=== PATIENT | male | born 1955 | race Caucasian/White ===

== ENCOUNTER 2019-12-01 08:57 | Day surgery (SDC) | payer OTHER, SELFPAY ==
[2019-12-01] VITALS (9 sets, daily range): BP systolic 94–118; BP diastolic 60–76; PULSE 52–69; RESP 16–18; TEMP 36.4–37.1; O2SAT 95–100; BMI 20.7
[2019-12-01 09:33] LABS: Hematocrit 43.9 % (40-54); Hemoglobin 14.4 g/dL (13.0-16.5); Mean Corp Hgb Conc 32.8 g/dL (32-36); Mean Corpuscular Hgb 30.1 pg (27.0-32.0); Mean Corpuscular Volume 91.8 fL (80-94); Mean Platelet Vol. 8.5 fl (6.2-12.0); Platelet Count 403 K/mm3 (150-450); RBC Distribution Width CV 13.3 % (11.6-14.6); RBC Distribution Width SD 44.5 fl (35.1-43.9); Red Blood Count 4.78 M/mm3 (4.6-6.2)
--- NOTE | 2019-12-01 09:42 | EKG12_ITS ---
Test Reason : PRE OP Blood Pressure : / mmHG Vent. Rate : 067 BPM Atrial Rate : 067 BPM P-R Int : 172 ms QRS Dur : 094 ms QT Int : 398 ms P-R-T Axes : 034 020 029 degrees QTc Int : 420 ms Normal sinus rhythm Normal ECG No previous ECGs available Confirmed by ELISABETH ARCOS, JERROD ([id number]), editorial specialist MADDY STANTON ([id number]) on 12/04/2019 3:41:48 PM Referred By: Homer Fry Confirmed By:JERROD BARBER MD
[2019-12-01] MEDS: Lactated Ringers 1,000 ML 100 ML IV (09:44)
[2019-12-01] MEDS: Cefazolin 2 GM in 0.9% Normal Saline 100 ML IV (09:53)
--- NOTE | 2019-12-01 10:00 | PCM.HP.STD ---
Problem List (1) BPH with obstruction/lower urinary tract symptoms Status: Acute History of Present Illness Date of Admission: 12/01/19 Chief Complaint: BPH with obstruction The patient is a 64 year old male who has a history of enlarged prostate with BPH obstruction has been managed with medical therapy with Flomax and Proscar for a long time he however is progressed and is continued have significant urinary symptoms in the office he was found to have bilateral hypertrophy obstruction the median lobe talked about the options of minimally invasive procedures in the office versus TURP side effects of the TURP including erectile dysfunction retrograde ejaculation bleeding infection bladder neck contracture scar tissue formation urethral scar tissue formation and also failure to alleviate urinary symptoms. After reviewing all the minuses and pluses and risk and benefits of surgery he wants to proceed with a TURP Past Medical History Allergies adhesive tape Adverse Reaction (Verified 12/01/19 09:22) Rash Home Medications: Ambulatory Orders Medication Instructions Recorded Finasteride [Proscar] 5 mg PO QHS 11/28/19 Tamsulosin HCl [Flomax] 0.4 mg PO QHS 11/28/19 Surgical History: no surgical history Smoking Status: Current every day smoker Tobacco Use: Cigars Review of Systems Constitutional: Denies: Chills, Fever, Weight Change HEENT: Denies: Head Aches, Sinus Congestion, Sinus Drainage Cardiovascular: Denies: Chest Pain, Palpitations Respiratory: Denies: Cough, Shortness of breath at rest, Sputum production Gastrointestinal: Denies: Abdominal Pain, Nausea, Vomiting Genitourinary: Denies: Dysuria Musculoskeletal: Denies: Joint Pain, Joint Tenderness Skin: Denies: Rash, Wounds Neurological: Denies: Numbness, Tingling, Focal weakness Psychiatric: Denies: Anxiety, Depression, Homicidal Ideations, Suicidal Ideations Hematologic/ Lymphatic: Denies: Easy Bruising, Easy Bleeding VTE Information - Inpt Only VTE Present on Admission: No VTE Mechan Device Prophylaxis: SCD's Patient Problems: Active and Suspected Problems BPH with obstruction/lower urinary tract symptoms (Acute) - Physical Exam Vitals/I&O's: Vital Signs Temp Pulse Resp BP Pulse Ox 98.8 F 55 L 16 111/72 100 12/01/19 09:24 12/01/19 09:24 12/01/19 09:24 12/01/19 09:24 12/01/19 09:24 Oxygen Delivery Method Room Air Weight: 71.4 kg Body Mass Index (BMI) 20.7 General: Alert, Oriented x3, Cooperative HEENT: Atraumatic, PERRLA, EOMI, Normocephalic Neck: Supple, No JVD, Negative Carotid Bruits Lungs: Clear to auscultation, Normal air movement Cardiovascular: Regular rate, No murmurs Abdomen: Bowel Sounds Present, Soft, Non Tender Extremities: No edema, Capillary Refill Less than 3 Seconds Skin: No rashes, No breakdown Musculoskeletal: No Tenderness to Palpation of Joints or Extremities Neurological: Cranial nerves II-XII grossly intact Psych/Mental Status: Normal Affect, Appropriate Laboratory Results 12/01/19 09:25: WBC 7.0, RBC 4.78, Hgb 14.4, Hct 43.9, MCV 91.8, MCH 30.1, MCHC 32.8, RDW Std Deviation 44.5 H, RDW Coeff of Cherry 13.3, Plt Count 403, MPV 8.5 Current Medications Lactated Ringer's () 1,000 mls @ 100 mls/hr IV .Q10H [facility] Last Admin: 12/01/19 09:44 Dose: 100 mls/hr Documented by: Assessment/Plan All Active Problems BPH with obstruction/lower urinary tract symptoms (Acute) Plan to proceed with a TURP for relief of obstructive urinary symptoms.
--- NOTE | 2019-12-01 10:04 | DCINST_ITS ---
Discharge Diet: No Restrictions Discharge Activity: Return to Normal Activity, May Not Drive - for 2 days. Additional Activity Instructions:: Please be aware that pain medications may cause nausea. You should typically eat light foods as you take your pain medication. Pain medication may cause constipation, if this is a problem for you, please discuss with your doctor. Allergies/Adverse Reactions: Allergies adhesive tape Adverse Reaction (Verified 12/01/19 09:22) Rash Medications to take at Discharge Finasteride [Proscar] 5 mg PO QHS 11/28/19 Tamsulosin HCl [Flomax] 0.4 mg PO QHS 11/28/19 Ciprofloxacin [Cipro] 500 mg PO BID #10 tab 12/01/19 The following prescriptions were given: Ciprofloxacin [Cipro] 500 mg PO BID #10 tab Transmission Status: Pending to [facility] Primary Care Physician: Jose Roberto Bueno, KELLEY-C [Primary Care Provider] - Test Results: Test results from this visit will be discussed in further detail at your follow- up appointment, if applicable. Please Follow Up With: Homer Fry MD When: please call to make an appointment.
[2019-12-01] MEDS: Lubricating Jelly 60 GM Tube 30 GM TOPICAL (10:31)
--- NOTE | 2019-12-01 10:55 | PROS_PTH ---
PATIENT: AMADA SMITH LOC: [facility] U#:[id number] AGE/SX: 64/M ROOM: RE12/01/[address]: Dr. Homer Fry MD : [id number] BED: DIS: 12/02/2019 SPEC #: [id number] RECD: 12/01/19 12:01 STATUS: ANABELA CAROLYN #: [id number] JIMY: 12/01/19 10:[address]: Homer Fry DEPT: SURGICAL PATHOLOGY RECD BY: Maite Alicea ENTERED: 12/04/19 08:55 SP TYPE: TURP OTHR DR: Jose Roberto Bueno, FARMER DIVERSIFIED CROPS-C Tissues: Prostate, NOS Procedures: Surgery Specimen Level IV HEADER OPERATION: Cystoscopy, TUR of prostate PRE-OP DIAGNOSIS: BPH with obstruction/lower urinary tract symptoms TISSUE SUBMITTED: Prostate tissue MICROSCOPIC DIAGNOSIS Prostate tissue, TUR: Benign prostatic hyperplasia, glandular and stromal type. Chronic inflammation. Fragments of stones (gross only). VICKY:da 12/05/19 MICROSCOPIC DESCRIPTION Slides are reviewed. GROSS DESCRIPTION Received is one container labeled with the patient's name and designated prostate tissue. The specimen consists of multiple irregular fragments of pink-valerio, rubbery, soft tissue that in aggregate weigh 17 gm and measure in aggregate 7 x 5 x 2 cm. Fragments of brownish stones are also noted measuring 0.1 and 0.3 cm in greatest dimension and in aggregate 1 x 1 x 0.2 cm. Nursing Officer tissue is submitted in 12 cassettes. The stones are for gross identification only. / VICKY:da 12/04/19 TC:5 CPT: 16631
--- NOTE | 2019-12-01 11:06 | PCM.OPRPT ---
Problem List (1) BPH with obstruction/lower urinary tract symptoms Status: Acute Report of Operation Date of Procedure: 12/01/19 Pre-Operative Diagnosis: BPH with obstruction Post-Operative Diagnosis: The same Surgery/Procedure Performed:: Transurethral resection of the prostate Description of Surgical Findings:: 64-year-old male who is been on medical therapy for BPH and obstruction at this point he is having significant urinary symptoms is failed to improve with medical therapy and we talked about the options of management including minimally invasive procedures versus TURP and other options after reviewing all the options the patient he wishes to proceed with a transurethral resection of the prostate to alleviate urinary symptoms we talked about the risk and benefits of the procedure. Patient was taken back to the operating room at the smooth induction of general anesthesia he was placed prone on the table penis and testicles are prepped and draped in usual sterile fashion, went into the bladder with a 24 Hungarian noncontinuous flow resectoscope he had a large median lobe and bilateral hypertrophy I then started with the resection of the median lobe identified the right and left ureteral orifice making sure not to injure the both the left and right ureter orifice. After resecting the median lobe the left and right ureter office were clear and patent were uninvolved and uninjured during the procedure and then worked my way back to the verumontanum I then resected all the right lobe of the prostate up to the up to the roof and then resected all the left side of the prostate all the way to the roof once entire prostate was resected wide open had a nice wide open channel I did a flow test had a good but good flow the sphincter was intact verumontanum was spared and both the left and right ureteral orifice were intact and clear and patent and uninjured during the procedure all the chips were Ellik out of the bladder hemostasis was obtained in a meticulous fashion and he was placed on continuous bladder irrigation the urine was nice and clear taken back to PACU in good condition. Type of Anesthesia:: General Drains: [address] - Admit VTE Documentation VTE Present on Admission: No VTE Mechan Device Prophylaxis: SCD's
[2019-12-01] MEDS: 0.9% Normal Saline 1,000 ML 75 ML IV ×2 (13:03→22:01)
[2019-12-01] MEDS: Docusate Sodium 100 MG Capsule PO (21:59)
--- NOTE | 2019-12-01 22:05 | NURSING ---
Charting not allowing vuong assessment. Vuong with CBI patent, urine light arlyn color. Started bag 4 of CBI.
[2019-12-02 00:42] VITALS: BP 108/69; PULSE 59; RESP 16; TEMP 37.1; O2SAT 98
[2019-12-02 02:55] VITALS: BP 106/66; PULSE 58; RESP 16; TEMP 36.6; O2SAT 97
[2019-12-02 08:28] VITALS: BP 115/72; PULSE 61; RESP 18; TEMP 36.6; O2SAT 96
[2019-12-02] MEDS: Docusate Sodium 100 MG Capsule PO (08:29)
[2019-12-02] MEDS: Pantoprazole Sodium 40 MG Tablet PO (08:29)
--- NOTE | 2019-12-02 09:36 | PCM.PROGNOTE ---
Patient Problems: Active and Suspected Problems BPH with obstruction/lower urinary tract symptoms (Acute) Subjective: Postoperative day #1 status post TURP urine is nice and clear he is off irrigation - Physical Exam Vitals/I&O's: Vital Signs Temp Pulse Resp BP Pulse Ox 97.8 F 61 18 115/72 96 12/02/19 08:28 12/02/19 08:28 12/02/19 08:28 12/02/19 08:28 12/02/19 08:28 Oxygen Flow Rate (L/min) 98 Oxygen Delivery Method Room Air Weight: 71.4 kg Body Mass Index (BMI) 20.7 Intake and Output for Last 24 Hours 11/30/19 12/01/19 12/02/19 23:59 23:59 23:59 Intake Total 1754.17 / 2154.17 1361.25 / 1361.25 Output Total 500 / 1300 2049 / 2049 Balance 1254.17 / 854.17 -688.75 / -688.75 General: Alert, Oriented x3, Cooperative HEENT: Atraumatic, PERRLA, EOMI, Normocephalic Neck: Supple, No JVD, Negative Carotid Bruits Lungs: Clear to auscultation, Normal air movement Cardiovascular: Regular rate, No murmurs Abdomen: Bowel Sounds Present, Soft, Non Tender Extremities: No edema, Capillary Refill Less than 3 Seconds Skin: No rashes, No breakdown Musculoskeletal: No Tenderness to Palpation of Joints or Extremities Neurological: Cranial nerves II-XII grossly intact Psych/Mental Status: Normal Affect, Appropriate Current Medications Acetaminophen (Tylenol) 325 mg PO Q4H PRN PRN PRN Reason: Pain Score 1-10/10 Al Hydroxide/Mg Hydroxide (Mylanta Ii) 30 ml PO Q4H PRN PRN PRN Reason: Heartburn Docusate Sodium (Colace) 100 mg PO BID [facility] Last Admin: 12/02/19 08:29 Dose: 100 mg Documented by: Sodium Chloride () 1,000 mls @ 75 mls/hr IV .[id number] [facility] Last Infusion: 12/02/19 06:50 Dose: 0 mls/hr Documented by: Sodium Chloride () 250 mls @ 15 mls/hr IV .[id number] PRN PRN Reason: Saline Flush Sodium Chloride () 250 mls @ 15 mls/hr IV .[id number] PRN PRN Reason: Additional IVPB Infusion Ibuprofen (Motrin) 600 mg PO Q6H PRN PRN PRN Reason: Pain Score 1-10/10 Ondansetron HCl (Zofran) 4 mg IV Q6H PRN PRN PRN Reason: Nausea Oxycodone HCl (Oxyir) 5 mg PO Q4H PRN PRN PRN Reason: Pain Score 1-10/10 Pantoprazole Sodium (Protonix) 40 mg PO DAILY [facility] Last Admin: 12/02/19 08:29 Dose: 40 mg Documented by: Sodium Chloride () 10 - 40 ml IV UD PRN PRN Reason: SALINE FLUSH Medical Necessity - Tobacco Use Smoking Status: Current every day smoker Tobacco Use: Cigars Assessment/Plan All Active Problems BPH with obstruction/lower urinary tract symptoms (Acute) Postoperative day #1 status post TURP urine to clear DC Clark patient can go home after he voids.
== END 2019-12-02 11:56 | disposition home or self-care (01) ==
LOC: SDC 09:00 → AC 09:01 → MS3 12-04 09:00
PROVIDERS: Anesthesiology; PCP Nurse Practitioner Family; Referring Provider Urology; Visit Provider Urology
PROC: (CPT 52601; principal; 2019-12-01 10:45)
DX: N40.1 Benign prostatic hyperplasia with lower urinary tract symptoms (principal); N13.8 Other obstructive and reflux uropathy; R35.0 Frequency of micturition; R39.15 Urgency of urination; R97.20 Elevated prostate specific antigen [PSA]; Z85.828 Personal history of other malignant neoplasm of skin; Z79.899 Other long term (current) drug therapy; F17.290 Nicotine dependence, other tobacco product, uncomplicated
CPT/HCPCS: 52601; 36415; 85027; 88305; 93005; 99251; J7030; J7120; G0463; J2405

== ENCOUNTER 2020-01-01 15:00 | Emergency (ER) | payer OTHER, SELFPAY ==
[2019-12-01 12:46] VITALS: BMI 20.7
[2020-01-01 15:01] VITALS: BP 134/81; PULSE 82; RESP 18; TEMP 36.6; O2SAT 96; BMI 19.7
--- NOTE | 2020-01-01 15:24 | ED.VISSUMM ---
- ER Visit Summary Date of Service: 01/01/20 Chief Complaint: Abdominal pain, nausea, vomiting, diarrhea History of Present Illness: The patient is a 64 M who presents with the above symptoms. He was taking GoLYTELY for a colonoscopy prep for today. This was to be done at [facility]. He states that last night after taking some of the prep he developed nausea vomiting and diarrhea. He had diffuse abdominal cramping. Currently has a cramping is better and he does not feel as nauseous. He was concerned so they canceled the colonoscopy and he came in today. He took no medications for the vomiting. He denies any fevers. This was just a screening colonoscopy. Physical Examination: Vital signs reviewed. HEENT exam unremarkable. Heart is regular rate and rhythm without murmurs. Lungs are clear to auscultation. Abdomen is soft and nontender. Extremities reveal no edema. Skin exam normal. Neurologic exam normal. Test Results: Lm studies normal except for white blood cell count of 17.4 and glucose of 125 Emergency Department Course and Treatment: Patient has had no pain during his stay here. He was hydrated with IV fluids and feels better. I feel that all of the symptoms are likely due to his bowel prep for the colonoscopy. He is having no diarrhea currently. No pain or nausea. I will send him home with Bentyl and Zofran if his symptoms recur. He is going to follow-up with his doctor who ordered the colonoscopy Treatment Plan: [] Disposition: Discharge Impression: Nausea vomiting and diarrhea status post bowel preparation This note was generated with [employer] dictation software. It may contain incorrect words, spelling, and punctuation that were not noted in review of the chart prior to signing ED Disposition - Plan for ED Patient: Disposition: Home or Assisted Living Instructions: ED Diet for Vomiting or Diarrhea Adult Prescriptions: Dicyclomine HCl [Bentyl] 20 mg PO TIDAC #20 cap Transmission Status: Pending to [facility] Ondansetron [Zofran Odt] 8 mg PO Q8H PRN PRN #20 tab PRN Reason: Nausea Transmission Status: Pending to [facility] Referrals: Jose Roberto Bueno, DEHYDROGENATION CONVERTER HELPER-C [Primary Care Provider] -
[2020-01-01] MEDS: 0.9% Normal Saline 1,000 ML 1000 ML IV (15:39)
[2020-01-01 15:46] LABS: Absolute Lymphocyte Count 0.73 X10^3/uL (0.83-4.51); Absolute Neutrophil Count 15.8 X10^3/uL (2.0-7.7); Basophil# 0.03 X10^3/uL; Basophil% 0.2 % (0-1); Eosinophil# 0.01 X10^3/uL; Eosinophils% 0.1 % (0-5); Hematocrit 43.7 % (40-54); Hemoglobin 14.3 g/dL (13.0-16.5); Lymphocyte # 0.73 X10^3/ul (4.0); Lymphocyte % 4.2 % (19-41); Mean Corp Hgb Conc 32.7 g/dL (32-36); Mean Corpuscular Hgb 28.9 pg (27.0-32.0); Mean Corpuscular Volume 88.3 fL (80-94); Mean Platelet Vol. 8.3 fl (6.2-12.0); Monocyte# 0.74 X10^3/uL; Monocyte% 4.3 % (0-10); NRBC Flagged by Analyzer 0 % (0-5); Neutrophil # 15.78 X10^3/uL (2.7-7.7); Neutrophil % 90.7 % (47-70); Platelet Count 715 K/mm3 (150-450); RBC Distribution Width CV 12.3 % (11.6-14.6); RBC Distribution Width SD 39.7 fl (35.1-43.9); Red Blood Count 4.95 M/mm3 (4.6-6.2); White Blood Count 17.4 K/mm3 (4.4-11.0)
[2020-01-01 16:06] LABS: ALB/GLOB Ratio 0.7 RATIO (0.9-2.4); AST(SGOT) 33 U/L (15-37); Alanine Aminotransfer ALT/SGPT 18 U/L (16-61); Albumin, Serum 3.3 g/dL (3.2-5.0); Alkaline Phosphatase 113 U/L (45-117); Anion Gap 11 (5-15); BUN 22 mg/dL (7-18); BUN/Creat Ratio 27.2 RATIO (10-20); Calcium,Total 9.8 mg/dL (8.5-10.1); Chloride 101 mmol/L (98-107); Creatinine, Serum 0.81 mg/dL (0.70-1.30); EST Glomerular Filtration Rate 102 mL/min (>60); Est Glom Filt Rate - Afr Amer 124 mL/min (>60); Estimated Creatinine Clearance 89.38 ml/min; Glucose 125 mg/dL (74-106); Lipase 51 U/L (73-393); Potassium 4.1 mmol/L (3.5-5.1); Protein, Total 8.3 g/dL (6.4-8.2); Sodium Level 136 mmol/L (136-145)
[2020-01-01 16:29] VITALS: BP 128/71; PULSE 79; RESP 16; O2SAT 99
== END 2020-01-01 16:31 | disposition home or self-care (01) ==
PROVIDERS: Emergency Provider Emergency Medicine; PCP Nurse Practitioner Family
DX: R11.2 Nausea with vomiting, unspecified (principal); R19.7 Diarrhea, unspecified; R10.9 Unspecified abdominal pain; Z72.0 Tobacco use
CPT/HCPCS: 80053; 83690; 85025; 96360; 99284; J7030; A4216

== ENCOUNTER 2020-03-02 10:04 | Inpatient (IN) | payer OTHER, SELFPAY ==
[2020-03-02] VITALS (12 sets, daily range): BP systolic 104–147; BP diastolic 65–97; PULSE 60–77; RESP 16–17; TEMP 36.3–37.6; O2SAT 96–98; BMI 18.7; BMI 18.8; BMI 19.1
--- NOTE | 2020-03-02 10:27 | CT_ITS ---
STUDY: CT ABDOMEN AND PELVIS WITH CONTRAST REASON FOR EXAM: Male, 64 years old. PT STATED DIFFUSE ABDOM PAIN, STATES COMPLICATIONS/PAIN SINCE ATTEMPTED COLONOSCOPY PREP IN DECEMBER. RADIATION DOSAGE (If Supplied By Facility): CTDIvol = ( 10.94 ) mGy, DLP = ( 510.62 ) mGycm TECHNIQUE: Transaxial images were obtained from the dome of the diaphragm to the symphysis pubis without oral contrast. Oral and amp; IV Gastrografin and amp; 100mL Isovue-300 was administered. Sagittal and coronal images were reconstructed. Individualized dose optimization techniques were used for this CT. COMPARISON: None. FINDINGS: The visualized lung bases demonstrate pulmonary masses bilaterally up to 7.3 x 6.2 cm. The visualized portions of the heart are within normal limits. 9 mm right hepatic cyst in the liver. Normal gallbladder and extrahepatic biliary system. Normal spleen. Normal pancreas. Normal bilateral adrenal glands. Punctate lower pole stone in the right kidney. Hydronephrosis of the left kidney with possible UPJ obstruction. Normal visualized stomach. Dilated small intestine with with retained contents. Wall thickening with possible mass in the proximal descending colon likely causing at least partial obstruction distended proximal colon. The appendix is visualized and appears normal. Normal abdominal aorta. Normal inferior vena cava. Normal retroperitoneum. Mild ascites. Normal urinary bladder. Trace pelvic free fluid. Normal abdominal wall. Normal osseous structures. CT/Abdomen/Pelvis WITH Contrast IMPRESSION: Multiple pulmonary masses bilaterally. Possible proximal descending colonic mass causing at least partial obstruction. Mild ascites and pelvic fluid. Electronically Signed: Terry Doshi DO at 13:19 EDT Tel [phone], Service support ,
--- NOTE | 2020-03-02 10:27 | ED.VIS.GEN ---
History of Present Illness Chief Complaint: Abd Pain Informant: Patient, Family Narrative: 64-year-old male presenting with bilateral lower quadrant pain. He states that in December he started having upper abdominal pain after getting a bowel prep for colonoscopy. He was seen and evaluated at [facility]. He was treated medically with fluids and medications. He felt better upon discharge. He did have a leukocytosis of 17,000. He followed up with his GI doctor who did an upper endoscopy and ultimately diagnosed him with H. pylori. He is currently on antibiotics and Prilosec for this. He states he is been having difficulty eating due to the ulcer in his stomach. Last night he ate ice cream which he states was moose tracks. He states that after that he started to have a lot of cramping and bloating in his stomach. This is persisted overnight. He points to his bilateral lower quadrants as where the pain is. He does state he has had black stools because he is on Pepto-Bismol. He denies bloody stools. He states that other than this current difficulty he has not had any medical problems. His fevers. He is not had any urinary complaints. Patient does state he is lost 20 pounds over the last month. Is able to eat vegetable based protein. He has difficulty eating most other things. Past Medical History - Allergies and Home Meds Allergies/Adverse Reactions: Allergies adhesive tape Adverse Reaction (Verified 03/02/20 10:05) Rash Prior records reviewed: Yes Past Medical History: - - Gastric ulcer, H. pylori Surgical History: - - Upper endoscopy Lives: Spouse/ Significant Other Smoking Status: Never smoker Alcohol: None Drugs: None - Family History Maternal Family History: Reports: No pertinent history, - - No family history of colon cancer. Paternal Family History: Reports: No pertinent history Review of Systems General: Denies: Chills, Fever, Sweats Eyes: Denies: Visual changes - bilaterally, Diplopia ENT: Denies: Rhinorrhea, Sore throat Cardiovascular: Denies: Chest pain, Palpitations Respiratory: Denies: Dyspnea, Cough, Dyspnea on exertion Gastrointestinal: Reports: Abdominal pain, Nausea, Melena Genitourinary: Denies: Dysuria, Hematuria Musculoskeletal: Denies: Myalgias, Arthralgias Skin: Denies: Rash Neurological: Denies: Headache Physical Exam Vital Signs/Narrative: Vital Signs Temp Pulse Resp BP Pulse Ox 03/02/20 10:06 97.4 F L 77 17 134/91 H 98 General: No Acute Distress Head: Normocephalic, Atraumatic Eyes: Perrl, EOMI. Negative for: Scleral icterus ENT: Moist mucous membranes Neck: Supple Cardiovascular: Regular rate, Regular rhythm Respiratory: No distress, CTA bilaterally Abdomen: - - Tenderness elicited in the right lower quadrant and midline lower abdomen. Back: Nontender Extremities: Nontender, No edema Skin: Normal color, No rash Neurological: Alert, Oriented x3 Psychological: Normal affect Diagnostic/Tx/Re-eval Clinical Impression(s) from Imaging Studies Abdomen/Pelvis CT 03/02/20 10:27 IMPRESSION: Multiple pulmonary masses bilaterally. Possible proximal descending colonic mass causing at least partial obstruction. Mild ascites and pelvic fluid. Electronically Signed: Terry Doshi DO at 13:19 EDT Tel [phone], Service support , KUB X-Ray 03/02/20 13:45 IMPRESSION: Recommend advancing NG tube 5 cm. Electronically Signed: Robi Loyola MD ([facility]) at 15:26 EDT , Service support , Laboratory Data 03/02/20 03/02/20 03/02/20 10:27 10:27 11:45 WBC 10.4 RBC 4.92 Hgb 13.4 Hct 42.2 MCV 85.8 MCH 27.2 MCHC 31.8 L RDW Std Deviation 44.1 H RDW Coeff of Cherry 14.3 Plt Count 562 H MPV 8.1 Immature Gran % (Auto) 0.300 Neut % (Auto) 84.2 H Lymph % (Auto) 8.7 L Mora % (Auto) 5.5 Eos % (Auto) 0.6 Baso % (Auto) 0.7 Absolute Neuts (auto) 8.7 H Absolute Lymphs (auto) 0.90 Nucleated RBC % 0 Sodium 137 Potassium 4.7 Chloride 105 Carbon Dioxide 29.0 Anion Gap 3 L BUN 13 Creatinine 0.77 Estim Creat Clear Calc 89.58 Est GFR (MDRD) Af Amer 132 Est GFR (MDRD) Non-Af 109 BUN/Creatinine Ratio 17.0 Glucose 114 H Calcium 9.5 Total Bilirubin 0.50 AST 32 ALT 36 Alkaline Phosphatase 138 H Total Protein 7.9 Albumin 3.7 Globulin 4.2 Albumin/Globulin Ratio 0.9 Lipase 106 Urine Color Yellow Urine Clarity Clear Urine pH 7.0 Ur Specific [place] 1.010 Urine Protein 15 H Urine Glucose (UA) Normal Urine Ketones Negative Urine Occult Blood 10 H Urine Nitrite Negative Urine Bilirubin Negative Urine Urobilinogen Normal Ur Leukocyte Esterase 25 H Urine RBC 0-5 SEEN Urine WBC 0 SEEN Ur Squamous Epith Cells 0 SEEN Amorphous Sediment 1+ Urine Bacteria 0 SEEN Urine Mucus 0 SEEN - Medical Decision Making He was seen and examined on arrival. He had some complaints of lower abdominal pain after eating ice cream last night. He also discussed this complaint of continued weight loss of 20 pounds over time frame when he was seen last. He does not have any epigastric pain associated with this stomach ulcer. His leukocytosis is improved. His renal function is normal. Electrolytes are normal. Patient did have a CT of the abdomen and pelvis with p.o. and IV contrast given his continued weight loss and pain. This does identify a large bowel obstruction of the descending colon likely caused by mass. There is also multiple masses throughout the abdomen and in the lungs. There appears to be some obstruction of the left ureter is unclear if this is new or old he has had previous renal surgery. He is not complaining of any flank pain. General surgery was consulted and came to the ER to evaluate the patient. They recommended taken straight to the OR due to the large bowel obstruction. I did also speak to the hospitalist who will arrange for further evaluation of the new masses. Impression: 1. Multiple masses in abdomen 2. Large bowel obstruction due to mass 3. Lung masses 4. Abdominal pain ED Disposition - Plan for ED Patient: Disposition: Acute Care Hospital [facility]
[2020-03-02 10:34] LABS: Absolute Neutrophil Count 8.7 X10^3/uL (2.0-7.7); Basophil# 0.07 X10^3/uL; Basophil% 0.7 % (0-1); Eosinophil# 0.06 X10^3/uL; Eosinophils% 0.6 % (0-5); Hematocrit 42.2 % (40-54); Hemoglobin 13.4 g/dL (13.0-16.5); Lymphocyte % 8.7 % (19-41); Mean Corp Hgb Conc 31.8 g/dL (32-36); Mean Corpuscular Hgb 27.2 pg (27.0-32.0); Mean Corpuscular Volume 85.8 fL (80-94); Mean Platelet Vol. 8.1 fl (6.2-12.0); Monocyte# 0.57 X10^3/uL; Monocyte% 5.5 % (0-10); NRBC Flagged by Analyzer 0 % (0-5); Neutrophil # 8.72 X10^3/uL (2.7-7.7); Neutrophil % 84.2 % (47-70); Platelet Count 562 K/mm3 (150-450); RBC Distribution Width CV 14.3 % (11.6-14.6); RBC Distribution Width SD 44.1 fl (35.1-43.9); Red Blood Count 4.92 M/mm3 (4.6-6.2); White Blood Count 10.4 K/mm3 (4.4-11.0)
[2020-03-02] MEDS: 0.9% Normal Saline 1,000 ML 1000 ML IV (10:38)
[2020-03-02] MEDS: Ondansetron 4 MG/2 ML Vial IV (10:38)
[2020-03-02] MEDS: Morphine 4 MG/ML Syringe IV (10:38)
[2020-03-02 10:51] LABS: ALB/GLOB Ratio 0.9 RATIO (0.9-2.4); AST(SGOT) 32 U/L (15-37); Alanine Aminotransfer ALT/SGPT 36 U/L (16-61); Albumin, Serum 3.7 g/dL (3.2-5.0); Alkaline Phosphatase 138 U/L (45-117); Anion Gap 3 (5-15); BUN 13 mg/dL (7-18); Calcium,Total 9.5 mg/dL (8.5-10.1); Chloride 105 mmol/L (98-107); Creatinine, Serum 0.77 mg/dL (0.70-1.30); EST Glomerular Filtration Rate 109 mL/min (>60); Est Glom Filt Rate - Afr Amer 132 mL/min (>60); Estimated Creatinine Clearance 89.58 ml/min; Globulin 4.2 g/dL (2.2-4.2); Glucose 114 mg/dL (74-106); Lipase 106 U/L (73-393); Potassium 4.7 mmol/L (3.5-5.1); Protein, Total 7.9 g/dL (6.4-8.2); Sodium Level 137 mmol/L (136-145)
[2020-03-02 11:57] LABS: Bacteria 0 SEEN /hpf (None Seen); Mucous, Urine 0 SEEN /hpf (<or=2+); Squamous Epithelial Cells - UA 0 SEEN /hpf (0-5); White Blood Cells 0 SEEN /hpf (0-5)
[2020-03-02 11:58] LABS: Color, Urine Yellow (Yellow); Glucose, Dipstick Normal (Normal); Ketone-Dipstick Negative (Negative); Leukocyte Esterase-Dipstick 25 /ul (Negative); Nitrite-Dipstick Negative (Negative); Occult Blood-Urine 10 /ul (Negative); Protein-Dipstick 15 mg/dl (Negative); Urine Bilirubin Dipstick Negative (Negative); Urine Clarity Clear (Clear); Urine Urobilinogen Normal (Normal)
[2020-03-02 12:09] LABS: Red Blood Cells-Urine 0-5 SEEN /hpf (0-5)
[2020-03-02 12:10] LABS: Amorphous Sediment 1+
--- NOTE | 2020-03-02 13:45 | RAD_ITS ---
STUDY: X-RAY - ABDOMEN/PELVIS REASON FOR EXAM: Male, 64 years old. NG tube placement TECHNIQUE: Single AP view of the abdomen / pelvis. COMPARISON: None. FINDINGS: Enteric tube is seen with tip extending into the gastric fundus with side port at the level of GE junction. Gaseous distention of colon with fecal residue noted. No dilated loops of small bowel seen. There is no demonstrated free abdominal air. The visualized liver, spleen and kidneys are grossly normal in size and morphology. Normal soft tissue structures. Normal visualized osseous structures. RAD/Abdomen Single View (Portable) IMPRESSION: Recommend advancing NG tube 5 cm. Electronically Signed: Robi Loyola MD ([place]) at 15:26 EDT , Service support ,
--- NOTE | 2020-03-02 14:22 | HP.PCM_ITS ---
Problem List (1) Partial obstruction of colon Status: Acute (2) Descending colon mass Status: Acute (3) Benign prostatic hyperplasia Status: Chronic (4) Status post left partial nephrectomy Status: Chronic History of Present Illness Date of Admission: 03/02/20 Chief Complaint: Abdominal pain. The patient is a 64 year old M with past medical history as mentioned above presented to the emergency room because of abdominal pain. Patient mentioned that the pain started around beginning of December when he was scheduled to go for colonoscopy. He was given the preparation for colonoscopy which she was not able to complete and started having nausea, vomiting with abdominal pain. Since then, patient has been having abdominal pain, intermittent, mid abdominal and around umbilicus, dull aching pain, not radiating, associated with intermittent nausea and vomiting and without alleviating or relieving factors. He mentioned that over the last several days, pain has been getting more intense, more constant, goes up to 10 out of 10 in severity, not radiating and associated with poor appetite and he lost about 25 pounds over the last couple of months. He denied constipation or diarrhea. He reports dark stool because he has been taking Pepto-Bismol. He denied hematochezia. Patient's mentioned that patient had upper endoscopy recently with Dr. Senior, found to have H. pylori apparently duodenal ulcer, was given treatment and he was informed that he needs to go to [facility] for a procedure. I am not sure what is this procedure as an no documents available in his chart from Dr. Senior's office. In the emergency department, his vital signs were stable. His routine blood work was unremarkable. LFT and lipase were normal. Urinalysis revealed no evidence of acute infection. CT scan abdomen and pelvis with contrast revealed multiple bilateral lung nodules, possible proximal descending colon mass causing at least partial colon obstruction and also revealed mild ascites and pelvic fluid. He is being admitted for partial colon obstruction due to possible descending colon mass and also found to have multiple bilateral lung nodules could be due to metastasis. Past Medical History Past Medical History (Chronic Problems): Chronic Problems Benign prostatic hyperplasia (Chronic) Status post left partial nephrectomy (Chronic) Allergies adhesive tape Adverse Reaction (Verified 03/02/20 10:05) Rash Home Medications: Ambulatory Orders Medication Instructions Recorded Omeprazole [Prilosec] 20 mg PO BID 03/02/20 Surgical History: TURP, - - Partial left nephrectomy. Psychiatric History: No pertinent psych hx Lives: Spouse/ Significant Other Smoking Status: Current every day smoker Tobacco Use: Cigars Alcohol: None Drugs: None - *Family History Maternal History Items: No pertinent history, - - No family history of colon cancer. Paternal History Items: No pertinent history Review of Systems Constitutional: Reports: Anorexia, Weight Change. Denies: Chills, Fever Eyes: Denies: Blurred vision, Double vision, Drainage, Redness HEENT: Denies: Difficulty Hearing, Ear Pain, Eye Pain, Nasal Congestion, Sore Throat Cardiovascular: Denies: Chest Pain, Claudication, Chest Pressure, Edema, H eaviness, Light Headedness, Palpitations, Syncope Respiratory: Denies: Cough, Pleuritic Pain, Shortness of Breath, Sputum production, Wheezing Gastrointestinal: Reports: Abdominal Pain, Nausea, Vomiting. Denies: Constipation, Diarrhea, Hematochezia Genitourinary: Denies: Dysuria, Frequency, Hematuria Musculoskeletal: Denies: Arm Pain, Back Pain, Foot Pain Skin: Denies: Dryness, Rash Neurological: Denies: Balance problems, Double vision, Slurred speech, Confusion, Headaches, Incoordination Psychiatric: Denies: Anxiety, Depression Endocrine: Denies: Change in Body Habitus, Polydipsia, Polyuria VTE Information - Inpt Only VTE Present on Admission: No VTE Mechan Device Prophylaxis: None VTE Pharm Prophylaxis ordered?: Yes Patient Problems: Active and Suspected Problems Partial obstruction of colon (Acute) Descending colon mass (Acute) - Physical Exam Vitals/I&O's: Vital Signs Temp Pulse Resp BP Pulse Ox 97.4 F L 60 16 147/97 H 98 03/02/20 10:06 03/02/20 11:30 03/02/20 11:30 03/02/20 11:30 03/02/20 10:06 Oxygen Delivery Method Room Air Weight: 142 lb 3.17 oz Body Mass Index (BMI) 18.7 Intake and Output for Last 24 Hours 02/29/20 03/01/20 03/02/20 23:59 23:59 23:59 Intake Total 1000 / 1000 Balance 1000 / 1000 General: Alert, Oriented x3, Cooperative, No apparent distress HEENT: Atraumatic, PERRLA, EOMI, Normocephalic Oral: Moist Mucosa, No Gingival or Mucosal Lesions/ Ulcerations Neck: Supple, No JVD, Negative Carotid Bruits, Trachea Midline, Thyroid Normal Size and Texture Lungs: Clear to auscultation, Normal air movement, No rhonchi, No wheeze, No rales Cardiovascular: Regular rate, Regular Rhythm, Normal S1, Normal S2, No murmurs, PMI Normal Abdomen: Bowel Sounds Present, Soft, Non-Distended, No Hepato-splenomegaly, Tender - Minimal tenderness, no guarding or rigidity. Extremities: No clubbing, No cyanosis, No edema Skin: No rashes, No breakdown Lymphatic: No Cervical, Supraclavicular, or Inguinal Adenopathy Neurological: Cranial nerves II-XII grossly intact, Motor Exam 5/5 strength throughout Psych/Mental Status: Normal Affect, Appropriate, Alert and oriented to time, place, person, mood and affect Laboratory Results 03/02/20 10:27: WBC 10.4, RBC 4.92, Hgb 13.4, Hct 42.2, MCV 85.8, MCH 27.2, MCHC 31.8 L, RDW Std Deviation 44.1 H, RDW Coeff of Cherry 14.3, Plt Count 562 H, MPV 8.1, Immature Gran % (Auto) 0.300, Neut % (Auto) 84.2 H, Lymph % (Auto) 8.7 L, [place] % (Auto) 5.5, Eos % (Auto) 0.6, Baso % (Auto) 0.7, Absolute Neuts (auto) 8.7 H, Absolute Lymphs (auto) 0.90, Nucleated RBC % 0 03/02/20 10:27: Sodium 137, Potassium 4.7, Chloride 105, Carbon Dioxide 29.0, Anion Gap 3 L, BUN 13, Creatinine 0.77, Estim Creat Clear Calc 89.58, Est GFR (MDRD) Af Amer 132, Est GFR (MDRD) Non-Af 109, BUN/Creatinine Ratio 17.0, Glucose 114 H, Calcium 9.5, Total Bilirubin 0.50, AST 32, ALT 36, Alkaline Phosphatase 138 H, Total Protein 7.9, Albumin 3.7, Globulin 4.2, Albumin/Globulin Ratio 0.9, Lipase 106 03/02/20 11:45: Urine Color Yellow, Urine Clarity Clear, Urine pH 7.0, Ur Specific [place] 1.010, Urine Protein 15 H, Urine Glucose (UA) Normal, Urine Ketones Negative, Urine Occult Blood 10 H, Urine Nitrite Negative, Urine Bilirubin Negative, Urine Urobilinogen Normal, Ur Leukocyte Esterase 25 H, Urine RBC 0-5 SEEN, Urine WBC 0 SEEN, Ur Squamous Epith Cells 0 SEEN, Amorphous Sediment 1+, Urine Bacteria 0 SEEN, Urine Mucus 0 SEEN Clinical Impression(s) from Imaging Studies Abdomen/Pelvis CT 03/02/20 10:27 IMPRESSION: Multiple pulmonary masses bilaterally. Possible proximal descending colonic mass causing at least partial obstruction. Mild ascites and pelvic fluid. Electronically Signed: Terry Doshi DO at 13:19 EDT Tel [phone], Service support , Assessment/Plan All Active Problems Partial obstruction of colon (Acute) Descending colon mass (Acute) This is a 64 years old male patient presented to the emergency room because of abdominal pain with nausea and vomiting that has been going on for couple of months, associated with poor appetite and loss of weight, found to have possible descending colon mass causing at least partial colon obstruction and also found to have multiple bilateral lung nodules and is being admitted for evaluation and treatment. #1 partial colon obstruction/possible descending colon mass: Differential diagnosis could be colon cancer with lung metastasis. CT scan abdomen and pelvis reviewed. NG tube inserted in the ED. Vital signs are stable. Blood work including CBC and CMP were unremarkable as well as lipase. Patient denied family history of colon cancer. Plan: Admit to MedSurg floor, keep on n.p.o., IV fluids, IV morphine PRN for pain, IV antiemetics, OxyIR PRN for pain, general surgery consult, maintain NG tube, repeat CBC and BMP tomorrow morning. #2 multiple bilateral lung nodules: Could be due to metastasis. Plan: CT scan chest without contrast. #3 recent diagnosis of peptic ulcer disease/H. pylori: Patient completed treatment according to him. Will obtain the upper EGD report from reports office. #3 status post partial left nephrectomy: Apparently, this was done for left UPJ obstruction. CT scan abdomen and pelvis revealed left hydronephrosis without evidence of obstructing stone. Kidney function is normal. #4 BPH: Status post TURP. Denied any urinary complaints. He is not on Flomax and Proscar. #5 DVT prophylaxis, subcu Lovenox. This note was generated with [employer] dictation software. It may contain incorrect words, spelling, and punctuation that were not noted in checking the note before signing. Inpatient E&M: [id number] Init Hosp L3
--- NOTE | 2020-03-02 15:08 | PCM.CONS.GEN ---
Problem List (1) Descending colon mass Status: Acute (2) Colonic obstruction Status: Acute (3) Bilateral pulmonary metastases Status: Acute Reason for Consult Date of Consultation: 03/02/20 History of Present Illness: The patient is a 64 year old M I have been asked to see by regarding what appears to be a large bowel obstruction. A written copy of my surgical consult recommendations will be present in the charting. 64-year-old gentleman. He states that he thinks around May 2019 he saw Lupillo Nguyễn. He was having what he calls prostate problems. He was then referred to who performed a TURP December 01, 2019 at the [facility]. The patient continued to have left lower quadrant abdominal pain. Apparently he returned to see Lupillo Nguyễn about September 2019. He was then referred to a skills auditor in [place]. He was scheduled early in December to have a colonoscopy but he failed the bowel prep with severe nausea and vomiting. It was so severe that he had to present to the [facility] emergency room. Apparently he was hydrated. I cannot find a physician note. He then was referred to Dr. Venkata Senior. Dr. Senior told him that he was not comfortable performing a colonoscopy. February 15, 2020 he did an upper scope apparently identifying H. pylori and a mass in the duodenum. He was being referred to someone at [place] to handle duodenal mass and the patient received H pylori oral therapy. It is of note however that the patient claims to have been telling all of his doctors that dating back at least 2 months he has been completely intolerant of food. He has had significant abdominal pain and cramping. He has had very little stool production. He has had significant weight loss of over 20 pounds. Presented to the emergency room today because of severe abdominal pain. An NG tube was placed and is noted below for feculent return. He has a history of being a long-term smoker. He was a long-term user of cigarettes at a pack per day and then he converted to cigars. He is only been off the tobacco for the past month because of this acute illness. Alcohol was occasional. He has had a previous partial left nephrectomy for what sounds like UPJ obstruction. A CT scan was obtained at the emergency room because of diffuse abdominal pain. This demonstrates pulmonary masses up to 7.3 x 6.2 cm in diameter. Hydronephrosis of the left kidney. Dilated small intestine with retained contents. Wall thickening with possible mass in the proximal descending colon likely causing at least partial obstruction. Mild ascites and pelvic fluid. Past Medical History Past Medical History (Chronic Problems): Chronic Problems Benign prostatic hyperplasia (Chronic) Status post left partial nephrectomy (Chronic) Allergies adhesive tape Adverse Reaction (Verified 03/02/20 10:05) Rash Home Medications: Ambulatory Orders Medication Instructions Recorded Omeprazole [Prilosec] 20 mg PO BID 03/02/20 Surgical History: TURP, - - Partial left nephrectomy. Psychiatric History: No pertinent psych hx Lives: Spouse/ Significant Other Smoking Status: Current every day smoker Tobacco Use: Cigars Alcohol: None Drugs: None - *Family History Maternal History Items: No pertinent history, - - No family history of colon cancer. Paternal History Items: No pertinent history Review of Systems Constitutional: Reports: Anorexia. Denies: Chills, Fever Cardiovascular: Denies: Chest Pain Respiratory: Denies: Shortness of Breath Gastrointestinal: Reports: Abdominal Pain, Constipation, Nausea, Vomiting Endocrine: Reports: Change in Body Habitus Patient Problems: Active and Suspected Problems Colonic obstruction (Acute) Bilateral pulmonary metastases (Acute) Partial obstruction of colon (Acute) Descending colon mass (Acute) - Physical Exam Vitals/I&O's: Vital Signs Temp Pulse Resp BP Pulse Ox 99.6 F H 69 16 136/89 H 98 03/02/20 14:30 03/02/20 14:30 03/02/20 14:30 03/02/20 14:30 03/02/20 10:06 Oxygen Delivery Method Room Air Weight: 142 lb 3.17 oz Body Mass Index (BMI) 18.7 Intake and Output for Last 24 Hours 02/29/20 03/01/20 03/02/20 23:59 23:59 23:59 Intake Total 1000 / 1000 Balance 1000 / 1000 General: Alert, Oriented x3, Cooperative, - - Patient appears cachectic HEENT: Atraumatic Oral: - - Dry mucosa Lungs: Clear to auscultation Cardiovascular: Regular rate, Regular Rhythm Abdomen: Hypoactive Bowel Sounds, Distended, Tender Extremities: No Calf Tenderness Musculoskeletal: No Tenderness to Palpation of Joints or Extremities Neurological: - - Cognition intact Psych/Mental Status: Normal Affect Laboratory Results 03/02/20 10:27: WBC 10.4, RBC 4.92, Hgb 13.4, Hct 42.2, MCV 85.8, MCH 27.2, MCHC 31.8 L, RDW Std Deviation 44.1 H, RDW Coeff of Cherry 14.3, Plt Count 562 H, MPV 8.1, Immature Gran % (Auto) 0.300, Neut % (Auto) 84.2 H, Lymph % (Auto) 8.7 L, [place] % (Auto) 5.5, Eos % (Auto) 0.6, Baso % (Auto) 0.7, Absolute Neuts (auto) 8.7 H, Absolute Lymphs (auto) 0.90, Nucleated RBC % 0 03/02/20 10:27: Sodium 137, Potassium 4.7, Chloride 105, Carbon Dioxide 29.0, Anion Gap 3 L, BUN 13, Creatinine 0.77, Estim Creat Clear Calc 89.58, Est GFR (MDRD) Af Amer 132, Est GFR (MDRD) Non-Af 109, BUN/Creatinine Ratio 17.0, Glucose 114 H, Calcium 9.5, Total Bilirubin 0.50, AST 32, ALT 36, Alkaline Phosphatase 138 H, Total Protein 7.9, Albumin 3.7, Globulin 4.2, Albumin/Globulin Ratio 0.9, Lipase 106 03/02/20 11:45: Urine Color Yellow, Urine Clarity Clear, Urine pH 7.0, Ur Specific [place] 1.010, Urine Protein 15 H, Urine Glucose (UA) Normal, Urine Ketones Negative, Urine Occult Blood 10 H, Urine Nitrite Negative, Urine Bilirubin Negative, Urine Urobilinogen Normal, Ur Leukocyte Esterase 25 H, Urine RBC 0-5 SEEN, Urine WBC 0 SEEN, Ur Squamous Epith Cells 0 SEEN, Amorphous Sediment 1+, Urine Bacteria 0 SEEN, Urine Mucus 0 SEEN Assessment/Plan All Active Problems Colonic obstruction (Acute) Bilateral pulmonary metastases (Acute) Partial obstruction of colon (Acute) Descending colon mass (Acute) 64-year-old gentleman. He has had a prolonged history of abdominal pain. He has had poor oral intake and failure to thrive over at least 2 months. He presents to the emergency room with escalating and severe abdominal pain. NG tube has feculent return. Abdominal CT scan demonstrates markedly enlarged cecum ascending and transverse colon. There appears to be a distinct mass in the descending colon with decompressed colon distal to that. I do not believe that this is a partial obstruction. The patient is demonstrating signs of progressive almost near total obstruction. Unfortunate addition he appears that he has large pulmonary metastasis. I recommend to the patient diverting colostomy. I have described to him that it appears that this will be a palliative maneuver. I am not recommending a colonoscopy as the first intervention due to the strong evidence of obstruction of the proximal end transverse colon. Definitive tissue might be obtainable in the future either with a colonoscopy or with sampling 1 of the multiple pulmonary mets. With the patient's present I discussed the technique, benefit, risk, alternatives. The patient is aware that I will not be addressing the apparent descending colon mass at this time. No guarantees of success have been offered. He is presenting during -19. He is aware that I consider this to be a urgent/emergent procedure. We will proceed as noted. Samir Marshall M.D., F.A.C.S.
--- NOTE | 2020-03-02 15:58 | EKG12_ITS ---
Test Reason : PRE OP Blood Pressure : / mmHG Vent. Rate : 070 BPM Atrial Rate : 070 BPM P-R Int : 158 ms QRS Dur : 090 ms QT Int : 386 ms P-R-T Axes : 047 021 024 degrees QTc Int : 416 ms Normal sinus rhythm Septal MO, age undetermined, cannot be excluded Confirmed by ROSY ARCOS, EDEN ([id number]), web content editor CHRISTINE RUSS ([id number]) on 03/04/2020 8:59:41 AM Referred By: SAMEER Confirmed By:EDEN GALLEGOS MD
--- NOTE | 2020-03-02 15:58 | ED.RN ---
DR WATSON TALKING WITH DR ESCALANTE FROM [facility]
[2020-03-02] MEDS: Bupivacaine Mpf 0.5% 30 ML VIAL (16:18)
--- NOTE | 2020-03-02 17:50 | PCM.OPRPT ---
Problem List (1) Descending colon mass Status: Acute (2) Colonic obstruction Status: Acute (3) Bilateral pulmonary metastases Status: Acute Report of Operation Date of Procedure: 03/02/20 Pre-Operative Diagnosis: Suspected descending colon malignancy with large bowel obstruction Post-Operative Diagnosis: Same Surgery/Procedure Performed:: Loop distal transverse colostomy Description of Surgical Findings:: Timeout and informed consent was obtained. 64-year-old gentleman was taken to the operating room placed supine on the table. He underwent general endotracheal intubation and anesthesia. Cefotetan 2 g were given intravenously. The abdomen sterilely prepped and draped. A transverse incision was made in the left upper quadrant sharp dissection was carried down through the subcutaneous tissue. The rectus fascia was incised transversely and the rectus muscles transected. Posterior sheath was incised. Expiration identified the transverse colon. Greater omentum was dissected free of the colon. An opening was made in the mesentery of the knee for the colon and a stomal bar was placed. The fascia was then partially re-secured with 0 Vicryl simple sutures. This was helped used to superior to the transverse colon as well. The transverse colon was then opened transversely. It was primarily matured with multiple interrupted 4-0 Vicryl sutures. There was good release of air proximally. Stomal appliance was applied. Sponge and instrument and needle counts were reported to the surgeon to be correct. Blood loss was minimal. He was taken to the recovery room in satisfactory addition without apparent complication. Specimens none. Drains none. Blood loss minimal. Samir Marshall M.D., F.A.C.S. Type of Anesthesia:: General Anesthesiologist: Concepcion Coreas
[2020-03-02] MEDS: 0.9% Normal Saline 1,000 ML 100 ML IV (20:24)
[2020-03-03 03:22] VITALS: BP 110/72; PULSE 70; RESP 17; TEMP 36.8; O2SAT 98
[2020-03-03 03:23] VITALS: BMI 18.8
--- NOTE | 2020-03-03 04:19 | RAD_ITS ---
STUDY: X-RAY - ABDOMEN/PELVIS REASON FOR EXAM: Male, 64 years old. LARGE BOWEL OBSTRUCTION TECHNIQUE: Single AP view of the abdomen / pelvis. COMPARISON: 8 CT 03/02/2020 FINDINGS: Nasogastric tube with the tip in the left upper quadrant likely the fundus the stomach. There is an unremarkable bowel gas pattern. There is no demonstrated free abdominal air. The visualized liver, spleen and kidneys are grossly normal in size and morphology. Excreted contrast in the bladder. Normal soft tissue structures. Normal visualized osseous structures. RAD/Abd Decub and/or Erect(Portabl IMPRESSION: No bowel obstruction Electronically Signed: Jose Roberto Salcedo MD at 8:49 EDT Tel , Service support ,
[2020-03-03] MEDS: 0.9% Normal Saline 1,000 ML 100 ML IV (05:25)
--- NOTE | 2020-03-03 06:33 | PCM.PN.SRG ---
Patient Problems: Active and Suspected Problems Colonic obstruction (Acute) Bilateral pulmonary metastases (Acute) Partial obstruction of colon (Acute) Descending colon mass (Acute) Subjective: Patient notes that he feels so much better. Mild soreness at the site of the left upper quadrant loop transverse colostomy. Severe abdominal pain and cramping has resolved. - Physical Exam Vitals/I&O's: Vital Signs Temp Pulse Resp BP Pulse Ox 98.3 F 70 17 110/72 98 03/03/20 03:22 03/03/20 03:22 03/03/20 03:22 03/03/20 03:22 03/03/20 03:22 Oxygen Delivery Method Room Air Weight: 144 lb 9.6 oz Body Mass Index (BMI) 19.1 Intake and Output for Last 24 Hours 03/01/20 03/02/20 03/03/20 23:59 23:59 23:59 Intake Total 1450 / 1450 778.33 / 778.33 Output Total 450 / 450 250 / 250 Balance 1000 / 1000 528.33 / 528.33 General: Alert, Oriented x3, Cooperative Lungs: Clear to auscultation Abdomen: Bowel Sounds Present - Significant amount of stool and flatus within the colostomy bag, Soft Laboratory Results 03/02/20 10:27: WBC 10.4, RBC 4.92, Hgb 13.4, Hct 42.2, MCV 85.8, MCH 27.2, MCHC 31.8 L, RDW Std Deviation 44.1 H, RDW Coeff of Cherry 14.3, Plt Count 562 H, MPV 8.1, Immature Gran % (Auto) 0.300, Neut % (Auto) 84.2 H, Lymph % (Auto) 8.7 L, [place] % (Auto) 5.5, Eos % (Auto) 0.6, Baso % (Auto) 0.7, Absolute Neuts (auto) 8.7 H, Absolute Lymphs (auto) 0.90, Nucleated RBC % 0 03/02/20 10:27: Sodium 137, Potassium 4.7, Chloride 105, Carbon Dioxide 29.0, Anion Gap 3 L, BUN 13, Creatinine 0.77, Estim Creat Clear Calc 89.58, Est GFR (MDRD) Af Amer 132, Est GFR (MDRD) Non-Af 109, BUN/Creatinine Ratio 17.0, Glucose 114 H, Calcium 9.5, Total Bilirubin 0.50, AST 32, ALT 36, Alkaline Phosphatase 138 H, Total Protein 7.9, Albumin 3.7, Globulin 4.2, Albumin/Globulin Ratio 0.9, Lipase 106 03/02/20 10:27: Carcinoembryonic Ag Pending 03/02/20 11:45: Urine Color Yellow, Urine Clarity Clear, Urine pH 7.0, Ur Specific [place] 1.010, Urine Protein 15 H, Urine Glucose (UA) Normal, Urine Ketones Negative, Urine Occult Blood 10 H, Urine Nitrite Negative, Urine Bilirubin Negative, Urine Urobilinogen Normal, Ur Leukocyte Esterase 25 H, Urine RBC 0-5 SEEN, Urine WBC 0 SEEN, Ur Squamous Epith Cells 0 SEEN, Amorphous Sediment 1+, Urine Bacteria 0 SEEN, Urine Mucus 0 SEEN Current Medications Acetaminophen (Tylenol) 650 mg PO Q6H PRN PRN PRN Reason: Pain Score 1-10/Temp > 100.7 F Enoxaparin Sodium (Lovenox) 40 mg SC DAILY [facility] Sodium Chloride () 1,000 mls @ 50 mls/hr IV .Q20H [facility] Last Admin: 03/03/20 05:25 Dose: 100 mls/hr Documented by: Pantoprazole Sodium 40 mg/ (Sodium Chloride) 110 mls @ 330 mls/hr IV Q12 [facility] Last Infusion: 03/02/20 22:08 Dose: Infused Documented by: Morphine Sulfate () 2 - 4 mg IV Q1H PRN PRN PRN Reason: Pain Score 1-10/10 Morphine Sulfate () 2 - 4 mg IV Q1H PRN PRN PRN Reason: Pain Score 1-10/10 Ondansetron HCl (Zofran) 4 mg IV Q8H PRN PRN PRN Reason: NAUSEA/VOMITING Oxycodone HCl (Oxyir) 5 mg PO Q4H PRN PRN PRN Reason: Pain Score 4-5/10 Sodium Chloride () 10 - 40 ml IV UD PRN PRN Reason: SALINE FLUSH Zolpidem Tartrate (Ambien (Generic)) 5 mg PO QHS PRN PRN PRN Reason: INSOMNIA Medical Necessity - Tobacco Use Smoking Status: Former smoker Tobacco Use: Cigars Assessment/Plan All Active Problems Colonic obstruction (Acute) Bilateral pulmonary metastases (Acute) Partial obstruction of colon (Acute) Descending colon mass (Acute) Patient is markedly improved status post emergency loop transverse colostomy performed last night. He already is decompressed with stool and flatus within his appliance. NG tube return has ceased being feculent and is decreased in amount. I plan to remove the NG tube start clear liquids and advance diet as tolerated. Oncology consultation is pending. Based upon that consultation can then decide whether the patient proceeds with chemotherapy for metastatic disease with delayed consideration for resection of his suspected primary. It can be decided whether as an outpatient he has a colonoscopy in an attempt to obtain tissue from his suspected descending colon lesion or whether he has a CT scan guided biopsy of 1 of his multiple pulmonary metastasis. I am not anticipating additional intervention or surgery during this hospitalization. The patient should not require a prolonged stay pending oncology input. Samir Marshall M.D., F.A.C.S.
[2020-03-03 06:49] LABS: Absolute Lymphocyte Count 0.66 X10^3/uL (0.83-4.51); Absolute Neutrophil Count 9.2 X10^3/uL (2.0-7.7); Basophil# 0.01 X10^3/uL; Basophil% 0.1 % (0-1); Hematocrit 35.5 % (40-54); Hemoglobin 11.3 g/dL (13.0-16.5); Lymphocyte # 0.66 X10^3/ul (4.0); Lymphocyte % 6.4 % (19-41); Mean Corp Hgb Conc 31.8 g/dL (32-36); Mean Corpuscular Hgb 27.3 pg (27.0-32.0); Mean Corpuscular Volume 85.7 fL (80-94); Mean Platelet Vol. 8.6 fl (6.2-12.0); Monocyte# 0.35 X10^3/uL; Monocyte% 3.4 % (0-10); NRBC Flagged by Analyzer 0 % (0-5); Neutrophil # 9.21 X10^3/uL (2.7-7.7); Neutrophil % 89.5 % (47-70); POSITIVE MORPHOLOGY YES; Platelet Count 528 K/mm3 (150-450); RBC Distribution Width CV 14.2 % (11.6-14.6); RBC Distribution Width SD 44.4 fl (35.1-43.9); Red Blood Count 4.14 M/mm3 (4.6-6.2); White Blood Count 10.3 K/mm3 (4.4-11.0)
[2020-03-03 06:53] LABS: Differential Indicated SCAN CRITERIA MET
[2020-03-03 07:08] LABS: Anion Gap 7 (5-15); BUN 18 mg/dL (7-18); Calcium,Total 8.6 mg/dL (8.5-10.1); Chloride 102 mmol/L (98-107); Creatinine, Serum 0.78 mg/dL (0.70-1.30); EST Glomerular Filtration Rate 106 mL/min (>60); Est Glom Filt Rate - Afr Amer 129 mL/min (>60); Estimated Creatinine Clearance 89.93 ml/min; Glucose 120 mg/dL (74-106); Potassium 4.4 mmol/L (3.5-5.1); Sodium Level 137 mmol/L (136-145)
[2020-03-03 07:19] VITALS: BP 105/62; PULSE 62; RESP 16; TEMP 37; O2SAT 96; BMI 18.8
[2020-03-03 07:33] LABS: Differential Comment SCANNED
--- NOTE | 2020-03-03 07:45 | NURSING ---
NG tube taken out at this time per orders. Dr. Tilley in patients room at this time.
--- NOTE | 2020-03-03 08:14 | PCM.PROGNOTE ---
Patient Problems: Active and Suspected Problems Colonic obstruction (Acute) Bilateral pulmonary metastases (Acute) Descending colon mass (Acute) Subjective: Chief complaint: Follow-up after admission for colonic obstruction and suspected descending colon mass/malignancy, status post loop distal transverse colostomy. Patient seen and examined. No acute events overnight. This morning, he denied any abdominal pain. NG tube was taken out. He denied nausea or vomiting. Denied chest pain or shortness of breath. His vital signs are stable. - Physical Exam Vitals/I&O's: Vital Signs Temp Pulse Resp BP Pulse Ox 98.6 F 62 16 105/62 96 03/03/20 07:19 03/03/20 07:19 03/03/20 07:19 03/03/20 07:19 03/03/20 07:19 Oxygen Delivery Method Room Air Weight: 144 lb 9.6 oz Body Mass Index (BMI) 19.1 Intake and Output for Last 24 Hours 03/01/20 03/02/20 03/03/20 23:59 23:59 23:59 Intake Total 1450 / 1450 995.00 / 995.00 Output Total 450 / 450 250 / 250 Balance 1000 / 1000 745.00 / 745.00 General: Alert, Oriented x3, Cooperative, No apparent distress HEENT: Atraumatic, PERRLA, EOMI, Normocephalic Oral: Moist Mucosa, No Gingival or Mucosal Lesions/ Ulcerations Neck: Supple, No JVD, Negative Carotid Bruits, Trachea Midline, Thyroid Normal Size and Texture Lungs: Clear to auscultation, Normal air movement, No rhonchi, No wheeze, No rales, Diminished Cardiovascular: Regular rate, Regular Rhythm, Normal S1, Normal S2, PMI Normal Abdomen: Bowel Sounds Present, Soft, Non Tender, Non-Distended, No Hepato-splenomegaly, - - Colostomy bag in place. Extremities: No clubbing, No cyanosis, No edema Skin: No rashes, No breakdown Lymphatic: No Cervical, Supraclavicular, or Inguinal Adenopathy Neurological: Cranial nerves II-XII grossly intact, Neuro grossly intact Psych/Mental Status: Normal Affect, Appropriate, Alert and oriented to time, place, person, mood and affect Laboratory Results 03/02/20 10:27: WBC 10.4, RBC 4.92, Hgb 13.4, Hct 42.2, MCV 85.8, MCH 27.2, MCHC 31.8 L, RDW Std Deviation 44.1 H, RDW Coeff of Cherry 14.3, Plt Count 562 H, MPV 8.1, Immature Gran % (Auto) 0.300, Neut % (Auto) 84.2 H, Lymph % (Auto) 8.7 L, [place] % (Auto) 5.5, Eos % (Auto) 0.6, Baso % (Auto) 0.7, Absolute Neuts (auto) 8.7 H, Absolute Lymphs (auto) 0.90, Nucleated RBC % 0 03/02/20 10:27: Sodium 137, Potassium 4.7, Chloride 105, Carbon Dioxide 29.0, Anion Gap 3 L, BUN 13, Creatinine 0.77, Estim Creat Clear Calc 89.58, Est GFR (MDRD) Af Amer 132, Est GFR (MDRD) Non-Af 109, BUN/Creatinine Ratio 17.0, Glucose 114 H, Calcium 9.5, Total Bilirubin 0.50, AST 32, ALT 36, Alkaline Phosphatase 138 H, Total Protein 7.9, Albumin 3.7, Globulin 4.2, Albumin/Globulin Ratio 0.9, Lipase 106 03/02/20 10:27: Carcinoembryonic Ag Pending 03/02/20 11:45: Urine Color Yellow, Urine Clarity Clear, Urine pH 7.0, Ur Specific Alliance 1.010, Urine Protein 15 H, Urine Glucose (UA) Normal, Urine Ketones Negative, Urine Occult Blood 10 H, Urine Nitrite Negative, Urine Bilirubin Negative, Urine Urobilinogen Normal, Ur Leukocyte Esterase 25 H, Urine RBC 0-5 SEEN, Urine WBC 0 SEEN, Ur Squamous Epith Cells 0 SEEN, Amorphous Sediment 1+, Urine Bacteria 0 SEEN, Urine Mucus 0 SEEN 03/03/20 06:25: Sodium 137, Potassium 4.4, Chloride 102, Carbon Dioxide 28.0, Anion Gap 7, BUN 18, Creatinine 0.78, Estim Creat Clear Calc 89.93, Est GFR (MDRD) Af Amer 129, Est GFR (MDRD) Non-Af 106, BUN/Creatinine Ratio 23.0 H, Glucose 120 H, Calcium 8.6 03/03/20 06:25: WBC 10.3, RBC 4.14 L, Hgb 11.3 L, Hct 35.5 L, MCV 85.7, MCH 27.3, MCHC 31.8 L, RDW Std Deviation 44.4 H, RDW Coeff of Cherry 14.2, Plt Count 528 H, MPV 8.6, Immature Gran % (Auto) 0.600, Neut % (Auto) 89.5 H, Lymph % (Auto) 6.4 L, [place]rick % (Auto) 3.4, Eos % (Auto) 0.0, Baso % (Auto) 0.1, Absolute Neuts (auto) 9.2 H, Absolute Lymphs (auto) 0.66 L, Nucleated RBC % 0, Differential Comment SCANNED Clinical Impression(s) from Imaging Studies Chest CT 03/03/20 18:39 IMPRESSION: Multiple bilateral large pulmonary masses as described, likely secondary to metastatic disease. Electronically Signed: Isa Lange MD at 1:53 EDT , Service support , Current Medications Acetaminophen (Tylenol) 650 mg PO Q6H PRN PRN PRN Reason: Pain Score 1-10/Temp > 100.7 F Enoxaparin Sodium (Lovenox) 40 mg SC DAILY [facility] Sodium Chloride () 1,000 mls @ 50 mls/hr IV .Q20H [facility] Last Infusion: 03/03/20 07:35 Dose: 50 mls/hr Documented by: Pantoprazole Sodium 40 mg/ (Sodium Chloride) 110 mls @ 330 mls/hr IV Q12 [facility] Last Infusion: 03/02/20 22:08 Dose: Infused Documented by: Morphine Sulfate () 2 - 4 mg IV Q1H PRN PRN PRN Reason: Pain Score 1-10/10 Morphine Sulfate () 2 - 4 mg IV Q1H PRN PRN PRN Reason: Pain Score 1-10/10 Ondansetron HCl (Zofran) 4 mg IV Q8H PRN PRN PRN Reason: NAUSEA/VOMITING Oxycodone HCl (Oxyir) 5 mg PO Q4H PRN PRN PRN Reason: Pain Score 4-5/10 Sodium Chloride () 10 - 40 ml IV UD PRN PRN Reason: SALINE FLUSH Zolpidem Tartrate (Ambien (Generic)) 5 mg PO QHS PRN PRN PRN Reason: INSOMNIA Medical Necessity - Tobacco Use Smoking Status: Former smoker Tobacco Use: Cigars Assessment/Plan All Active Problems Colonic obstruction (Acute) Bilateral pulmonary metastases (Acute) Descending colon mass (Acute) This is a 64 years old male patient presented to the emergency room because of abdominal pain with nausea and vomiting that has been going on for couple of months, associated with poor appetite and loss of weight, found to have possible descending colon mass causing at least partial colon obstruction and also found to have multiple bilateral lung nodules and is being admitted for evaluation and treatment. #1 colon obstruction/possible descending colon mass/malignancy: Status post loop distal transverse colostomy, postoperative day 1. Today, patient is feeling better, colon is decompressed, patient having gas through the colostomy bag. Vital signs are stable. Repeat CBC and BMP was unremarkable. No surgical specimen taken for histopathology. NG tube removed this morning. He is on IV morphine and OxyIR PRN for pain. Started on clear liquids by general surgery. Plan to advance diet as directed, awaiting oncology recommendations. #2 multiple bilateral lung nodules: Probably due to metastasis and the primary is likely chronic cancer. CT scan chest without contrast reviewed. No surgical specimen taken from the colon. Patient may need colonoscopy in the near future or CT-guided biopsy of the lung nodules. Oncology consulted, awaiting their recommendations. #3 recent diagnosis of peptic ulcer disease/H. pylori: He is on IV Protonix. Again, we will try to get the upper EGD report from Dr. Senior's office. #3 status post partial left nephrectomy: Apparently, this was done for left UPJ obstruction. CT scan abdomen and pelvis revealed left hydronephrosis without evidence of obstructing stone. Kidney function remained stable. #4 BPH: Status post TURP. Denied any urinary complaints. He is not on Flomax and Proscar. #5 DVT prophylaxis, subcu Lovenox. This note was generated with [employer] dictation software. It may contain incorrect words, spelling, and punctuation that were not noted in checking the note before signing. Inpatient E&M: 78975 Subs Hosp L2
[2020-03-03 08:18] VITALS: O2SAT 96
[2020-03-03] MEDS: Enoxaparin 40 MG/0.4 ML Syringe SC (08:26)
--- NOTE | 2020-03-03 08:42 | NURSING ---
This nurse called [employer] to consult oncology for this pt.
--- NOTE | 2020-03-03 10:19 | NT.THERAPY_ITS ---
Nutrition Therapy Report - History Nutrition Services has been consulted to:: Conduct nutrition education Current diet / nutrition support order:: clear liquids - Anthropometric Measurements Height:: 6 ft 1 in Weight:: 65.589 kg Body Mass Index (BMI):: 19.1 - Relevant Labs Relevant Labs:: RBC 4.14 M/mm3 (4.6-6.2) L 03/03/20 06:25 Hgb 11.3 g/dL (13.0-16.5) L 03/03/20 06:25 Hct 35.5 % (40-54) L 03/03/20 06:25 MCHC 31.8 g/dL (32-36) L 03/03/20 06:25 RDW Std Deviation 44.4 fl (35.1-43.9) H 03/03/20 06:25 Plt Count 528 K/mm3 (150-450) H 03/03/20 06:25 Neut % (Auto) 89.5 % (47-70) H 03/03/20 06:25 Lymph % (Auto) 6.4 % (19-41) L 03/03/20 06:25 Absolute Neuts (auto) 9.2 X10^3/uL (2.0-7.7) H 03/03/20 06:25 Absolute Lymphs (auto) 0.66 X10^3/uL (0.83-4.51) L 03/03/20 06:25 Anion Gap 3 (5-15) L 03/02/20 10:27 BUN/Creatinine Ratio 23.0 RATIO (10-20) H 03/03/20 06:25 Glucose 120 mg/dL (74-106) H 03/03/20 06:25 Alkaline Phosphatase 138 U/L (45-117) H 03/02/20 10:27 - Assessment Food / Nutrition-Related History:: Pt reports poor appetite w/ little PO intake over past 2 months. States he was trying to drink 1 bottle of Ensure/day, but otherwise was eating very little d/t abd pain/N/V. No special diet followed normally at home. Wt in December 2019 was 167#. CBW 144.6#-22.4#/13.4% wt loss x 2 months, significant for malnutrition. Tolearting clear liquids this AM s/p loop transverse colostomy. 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 - Nutrition Diagnosis Problem / Etiology / Signs & Symptoms (PES):: Severe malnutrition related to abd pain, nausea, emesis causing inadequate energy intake as evidenced by 22.4#/13.4% wt loss, estimated PO intake meeting <50% of estimated energy needs x 2 months Evidence of Malnutrition Exists:: Yes Severe PCM:: Acute Illness - Nutrition Intervention Nutrition Prescription:: 9150-1012 calories/day, 78-88 g protein/day - Food / Nutrient Delivery Interventions Summary of nutrition intervention:: Discussed providing Ensure while hopsitalized; explained to pt we will try Ensure Clear this AM and advance to Ensure Enlive when diet advanced. Encouraged pt to continue w/ Ensure at home. Discussed gradually advancing intake of full liquids to solid foods, encouraged low fiber diet as tolerated w/ gradual increase in fiber s/p colostomy. Pt w/ no further questions at this time. Nutrition support ordered as / adjusted to:: will add ensure clear 120mL 4x/day w/ medpass; recommend advance diet as tolerated to transitional. Nutrition education provided?: Yes - MNT Monitoring Further MNT monitoring and evaluation required?: Yes MNT Follow-up in:: 3-5 days
[2020-03-03 10:23] VITALS: BMI 19.1
[2020-03-03 11:15] VITALS: BP 111/63; PULSE 59; RESP 16; TEMP 36.5; O2SAT 97; BMI 18.8
[2020-03-03] MEDS: Ensure Clear 120 ML Liquid PO ×3 (12:25→19:32)
[2020-03-03 15:30] VITALS: BP 110/68; PULSE 64; RESP 18; TEMP 36.6; O2SAT 98
[2020-03-03 16:06] VITALS: BMI 18.8
--- NOTE | 2020-03-03 17:01 | NURSING ---
Pt has walked in encarnacion 4 times today thus far.
--- NOTE | 2020-03-03 18:39 | CT_ITS ---
STUDY: CT CHEST WITHOUT CONTRAST REASON FOR EXAM: Male, 64 years old patient presents for evaluation of chest masses identified on recent CT of the abdomen and pelvis done earlier. Patient is recently postop with colostomy last evening. Patient has history of skin cancer, and is status post nephrectomy. RADIATION DOSAGE (If Supplied By Facility): CTDIvol = ( 7.86 ) mGy, DLP = ( 320.08 ) mGycm TECHNIQUE: Transaxial imaging was performed without the administration of intravenous contrast material. Multiplanar coronal and sagittal images were reformatted. Individualized dose optimization techniques were used for this CT. COMPARISON: Prior comparable comparison studies are not available for review at this time. FINDINGS: Enteric tube is present with the distal end in the left upper quadrant and in the proximal stomach. The lungs are hyperexpanded. There are multiple large pulmonary masses. The largest left sided mass is located in the left lower lobe and measures approximately 9.4 x 5.0 x 7.6 cm in size. There are multiple large right middle lobe masses. There are large lingular and left upper lobe masses. These masses appear to have multifocal calcifications within them. These are presumably metastasis. . There is no demonstrated pleural abnormality. Normal heart and pericardium. There are multiple small lymph nodes within the mediastinum, which are normal in size and morphology. There is enlargement of the left hilar area suggesting hilar lymphadenopathy. Normal unenhanced pulmonary arteries. There is atherosclerotic tortuosity of the aortic arch and descending thoracic aorta. Maximum transverse dimension of the ascending thoracic aorta measures approximately 3.8 cm. Normal osseous structures. There is increased attenuation of the gallbladder that may be secondary to biliary sludge versus vicarious excretion of contrast. CT/Chest without Contrast IMPRESSION: Multiple bilateral large pulmonary masses as described, likely secondary to metastatic disease. Electronically Signed: Isa Lange MD at 1:53 EDT , Service support ,
[2020-03-03] MEDS: 0.9% Normal Saline 1,000 ML 50 ML IV (22:11)
[2020-03-03 22:21] VITALS: BP 122/56; PULSE 58; RESP 16; TEMP 36.6; O2SAT 98
[2020-03-03 22:26] VITALS: BMI 18.8
[2020-03-04] VITALS (13 sets, daily range): BP systolic 102–136; BP diastolic 59–89; PULSE 55–71; RESP 12–24; TEMP 36.6–37.3; O2SAT 95–100; BMI 19.1
--- NOTE | 2020-03-04 | IMM_PTH ---
PATIENT: AMADA SMITH LOC: MS3 U#:[id number] AGE/SX: 64/M ROOM: SC311 RE03/02/[address]: Dr. Mariana Zhou DO : 1955 BED: 1 DIS: 03/05/2020 SPEC #: [id number] RECD: 03/05/20 12:02 STATUS: ANABELA REQ #: [id number] JIMY: 03/04/20 00:[address]: Samir Marshall DEPT: IMMUNOHISTOCHEMISTRY RECD BY: Amanda Summers ENTERED: 03/05/20 12:04 SP TYPE: IMMUNO OTHR DR: MD Dr. Mariana Simpson DO Dr. Mansour Isckarus, MD Richard Dennis Tompkins, [employer] DETECTIVE-C Tissues: Left lung, NOS Procedures: RCC (add) MSH2 (add) MLH-1 (add) MSH6 (add) Anti-PMS2 (add) NAPSIN A (add) CK20 (add) CK5-6 (add) CK7 (add) CK8 (add) HEP PAR (add) TTF1 (add) Pankeratin (initial) P40 (add) PSAP (add) PHYSICIAN & [place] [id number] SPECIMEN INFORMATION: Tissue Source: Left mid lung mass Clinical Info: Left mid lung mass Specimen Number: [id number] CPT code: 83333, 84103 x14 METHODOLOGY: Deparaffinized sections of prefer/formalin-fixed tissue or PAP/DQ stained slides are incubated with monoclonal/polyclonal antibodies/oligonucleotide probes. Localization is made via biotin free immunoperoxidase method. Appropriate controls are performed and reacted as expected. Results on target cell population are indicated in the following table: RESULTS: ANTIBODY / CLONE RESULT AE1-3 (AE1/AE3/PCK26) positive CK7 (OV-TL12/30) negative CK8 (05bmzrC87) positive CK20 (KS20.8) positive TTF-1 (8G7G3/1) negative Napsin A (Rabbit Polyclonal) positive HepPar (OCh1E5) negative RCC (PN-15) negative PSAP (PASE/4LJ) negative CK5-6 (D5 & 1684) positive P40 (BC28) negative MLH-1 (M1) positive MSH2 (25D12) noncontributory MSH6 (44) noncontributory PMS2 ([id number]) positive These tests were developed and their performance characteristics determined by [facility]. They may not have been cleared or approved by the U.S. Food and Drug Administration. The FDA has determined that such clearance or approval is not necessary. The above immunohistochemical/dualISH markers are ordered and reviewed by the Pathologist. INTERPRETATION: Left mid lung mass, CT-guided core biopsy: Metastatic non-small cell carcinoma, favor adenocarcinoma consistent with colonic primary. Result of Microsatellite Instability Study, see comment below. Comment: Only partial results are possible due to scant amount of viable tumor. The tumor is positive for MLH1 and PMS2 and IHC is noncontributory for MSH2 and MSH6, no tumor is present on IHC slides. This case has been reviewed in consultation with Dr. Harden who concurs with the above diagnosis. . VICKY:da 03/06/20
--- NOTE | 2020-03-04 05:51 | PN.SURG_ITS ---
Patient Problems: Active and Suspected Problems Colonic obstruction (Acute) Bilateral pulmonary metastases (Acute) Descending colon mass (Acute) Subjective: The patient is doing well. He notes a significant amount of flatus and stool within the bag. He has some slight left abdominal wall muscular spasm. - Physical Exam Vitals/I&O's: Vital Signs Temp Pulse Resp BP Pulse Ox 98.8 F 58 L 16 121/69 H 95 03/04/20 02:44 03/04/20 02:44 03/04/20 02:44 03/04/20 02:44 03/04/20 02:44 Oxygen Delivery Method Room Air Weight: 144 lb 9.584 oz Body Mass Index (BMI) 19.1 Intake and Output for Last 24 Hours 03/02/20 03/03/20 03/04/20 23:59 23:59 23:59 Intake Total 1450 / 1450 2885.00 / 2885.00 Output Total 450 / 450 2700 / 2700 Balance 1000 / 1000 185.00 / 185.00 Lungs: Clear to auscultation Abdomen: Soft, Non Tender Laboratory Results 03/03/20 06:25: Sodium 137, Potassium 4.4, Chloride 102, Carbon Dioxide 28.0, Anion Gap 7, BUN 18, Creatinine 0.78, Estim Creat Clear Calc 89.93, Est GFR (MDRD) Af Amer 129, Est GFR (MDRD) Non-Af 106, BUN/Creatinine Ratio 23.0 H, Glucose 120 H, Calcium 8.6 03/03/20 06:25: WBC 10.3, RBC 4.14 L, Hgb 11.3 L, Hct 35.5 L, MCV 85.7, MCH 27.3, MCHC 31.8 L, RDW Std Deviation 44.4 H, RDW Coeff of Cherry 14.2, Plt Count 528 H, MPV 8.6, Immature Gran % (Auto) 0.600, Neut % (Auto) 89.5 H, Lymph % (Auto) 6.4 L, [place] % (Auto) 3.4, Eos % (Auto) 0.0, Baso % (Auto) 0.1, Absolute Neuts (auto) 9.2 H, Absolute Lymphs (auto) 0.66 L, Nucleated RBC % 0, D ifferential Comment SCANNED Current Medications Acetaminophen (Tylenol) 650 mg PO Q6H PRN PRN PRN Reason: Pain Score 1-10/Temp > 100.7 F Enoxaparin Sodium (Lovenox) 40 mg SC DAILY [facility] Last Admin: 03/03/20 08:26 Dose: 40 mg Documented by: Sodium Chloride () 1,000 mls @ 50 mls/hr IV .Q20H [facility] Last Infusion: 03/03/20 22:31 Dose: 50 mls/hr Documented by: Pantoprazole Sodium 40 mg/ (Sodium Chloride) 110 mls @ 330 mls/hr IV Q12 [facility] Last Infusion: 03/03/20 22:31 Dose: Infused Documented by: Morphine Sulfate () 2 - 4 mg IV Q1H PRN PRN PRN Reason: Pain Score 1-10/10 Morphine Sulfate () 2 - 4 mg IV Q1H PRN PRN PRN Reason: Pain Score 1-10/10 Nutritional Formula (Lactose Free) (Ensure Clear) 120 ml PO 4X/DAY [facility] Last Admin: 03/03/20 22:12 Dose: Not Given Documented by: Ondansetron HCl (Zofran) 4 mg IV Q8H PRN PRN PRN Reason: NAUSEA/VOMITING Oxycodone HCl (Oxyir) 5 mg PO Q4H PRN PRN PRN Reason: Pain Score 4-5/10 Sodium Chloride () 10 - 40 ml IV UD PRN PRN Reason: SALINE FLUSH Zolpidem Tartrate (Ambien (Generic)) 5 mg PO QHS PRN PRN PRN Reason: INSOMNIA Medical Necessity - Tobacco Use Smoking Status: Former smoker Tobacco Use: Cigars Assessment/Plan All Active Problems Colonic obstruction (Acute) Bilateral pulmonary metastases (Acute) Descending colon mass (Acute) Is ready for discharge He still has a stomal bar in place. I can remove that as an outpatient on Wednesday. My recommendation would be for him to undergo a CT scan guided lung biopsy today for tissue diagnosis. I would then anticipate placing a port tomorrow and have him initiate chemotherapy as appropriate. If that were the plan of approach then we would hold onto them today to proceed with intervention tomorrow. An additional secondary option would be to discharge him today. Schedule a outpatient colonoscopy in the near future allowing the colostomy just enough time to seal in place. Obtain tissue in that method. We will need to have direction as to whether chemotherapy will be the initial means of approach. It would appear that the primary lesion is not currently he is problem but rather the lung metastasis. Certainly a left and can be performed however this would delay any additional adjuvant treatment. It is not clear to me at the moment that he will need to have his primary lesion addressed. I would like to help coordinate with hematology oncology. Samir Marshall M.D., F.A.C.S. Addendum Verbally discussed with Dr. Pastor. Plan to proceed with CT scan guided lung biopsy today and I have discussed this with Dr. Swanson. The patient will be held n.p.o. until that procedure then may resume diet as tolerated. We will hold him overnight and plan to proceed with a port placement tomorrow to facilitate chemotherapy. I anticipate the patient will be ready for surgical discharge tomorrow. He does have a stomal bar still in place and he is to be seen today by enterostomal therapy. It may well be that the patient does not have the opportunity to pursue a definitive left colectomy and this may be a permanent colostomy while he is receiving palliative care. Additionally that being the case he may not require a future colonoscopy.
[2020-03-04 06:29] LABS: International Normalized Ratio 1.1; Prothrombin Time (Protime)PT. 13.4 SECONDS (11.7-14.9)
--- NOTE | 2020-03-04 06:34 | NURSING ---
Dr. Beard paged via stereo operator @ [phone]. No response yet.
[2020-03-04 06:47] LABS: Ferritin 92 ng/mL (26-388); Iron 24 ug/dL (65-175); Iron Binding Capacity,Total 249 ug/dL (250-450)
--- NOTE | 2020-03-04 06:52 | NURSING ---
Talked to Wilmar in lab. Advised him that I had just talked to Dr. Pastor and that the the [facility] tumor marker test he wanted ordered was the CEA. Wilmar acknowledged understanding. Further, I advised Dr. Pastor that Dr. Marshall wanted to know what the plan was for this pt since he could possibly be discharged from his standpoint. He didn't know if a port would need to be placed, etc. Dr. Pastor will see the pt and speak to Dr. Marshall.
--- NOTE | 2020-03-04 07:39 | PCA ---
faxed doctor maya office authorization over to get egd reports for this paitent have received anything at this time
--- NOTE | 2020-03-04 10:38 | NURSING ---
stoma photo: left upper abdomen
--- NOTE | 2020-03-04 10:39 | NURSING ---
Was asked to see patient for ostomy teaching. pt is POD#2 loop distal transverse colostomy per Dr Marshall for a mass in the proximal descending colon. present in room as well to observe. pt states he plans to be the one changing the appliance at home. emptied approx 50 cc's of dark galeana liquid stool. gently removed the appliance. stoma is beefy red and edematous. measures approx 2 1/4. peristomal skin is intact. stomal bar is in place but stoma covers the bar. Dr Marshall plans to remove the bar in the office later this week since pt is hoping to discharge home tomorrow after the port is placed. cleansed the peristomal skin with warm water. pat skin dry. applied a new flat 2 piece Cecily appliance with a small amount of stoma paste. educated patient and on emptying the appliance and cleaning the lock n' roll closure. asking about disposable pouches. would recommend drainable pouches to start d/t the frequency of emptying the appliance. insurances typically only cover 40 disposable pouches a month so if pt would need to empty more than twice a day, pt could run out. Pt and state understanding. will have case management arrange for home health care for further ostomy teaching. booklet given and supplies to be ordered through [employer]. pt and deny questions at this time.
--- NOTE | 2020-03-04 10:55 | CASEMGMT ---
RN ALINE Face to Face with patient for initial transition planning/care coordination assessment. RN CM introduced self and role at [facility]. Patient lying in bed, alert and oriented, at bedside. Patient willing to participate in assessment and is able to answer all questions appropriately. Care providers, pharmacy, and demographics verified. Patient wishes to discharge home with [facility] for colostomy teaching. Patient states he has no further needs or concerns at this time. CM to follow for discharge planning needs that may arise. PCP: Myles Specialists: none Preferred Pharmacy: [facility] Insurance: MMO Prescription Benefit: yes Living Will/HPOA: none LNOK: Living Arrangements: patient lives with in a 2 story home with bed and bath on first floor. Patient is independent at home. Transportation: self, DME/HHC: states he has raised toilet, cane, walker. Disposition Plan: Patient to discharge home with [facility], family support, and follow-up plans in place. Carissa MERCEDES, RN, CM
--- NOTE | 2020-03-04 11:04 | CT_ITS ---
PROCEDURE: CT GUIDED CORE NEEDLE BIOPSY OF A left lower lobe LUNG LESION INDICATION: Male, 64 years old. LUNG BX -- 17.. PHYSICIAN: Dr. SHILPA Guerra CONSENT: Written informed consent was obtained having explained the risks, benefits and alternatives in detail with the patient who accepted the risks and agreed to proceed. Laboratory review and clinical assessment was performed. CONSCIOUS SEDATION PROTOCOL: The Drugs used were: 2 mg Versed, IV., and 50 mcg Fentanyl, IV. The sedation time was: 9 minutes. Conscious sedation was started 11:51 AM and terminated at 12:00 PM The conscious sedation protocol was independently monitored. RADIATION DOSAGE (If Supplied By Facility): CTDIvol = ( 17 ) mGy, DLP = ( 1968.38 ) mGycm Individualized dose optimization techniques were used for this CT. TECHNIQUE: The patient was placed in the prone position. A noncontrast CT was performed to localize the lesion in the left lower lobe . The skin surface was prepped and draped in a sterile fashion. 1% lidocaine was used for local anesthesia. Using CT guidance, a 20-gauge coaxial biopsy device was advanced to the periphery of the lesion. A total of 4 core specimens were obtained. The specimens were placed in a formalin solution. A post procedure CT demonstrated no adverse sequelae or pneumothorax. The patient tolerated the procedure well without adverse event. A negative biopsy does not exclude malignancy. Further imaging or clinical followup based on patient condition and degree of clinical suspicion for malignancy. Suggest rebiopsy, if biopsy results do not match with clinical scenario. CT/Biopsy/Inj or Needle Placement IMPRESSION: 1. CT directed core needle biopsy of the left lower lobe pulmonary nodule using CT image guidance with image documentation as described. Pathology results are pending. 2. Conscious Sedation protocol utilized with independent monitoring. Electronically Signed: Leroy Swanson, at 13:05 EDT , Service support ,
[2020-03-04] MEDS: Midazolam 2 MG/2 ML Syringe IV (11:51)
[2020-03-04] MEDS: fentaNYL 100 MCG/2 ML Ampul IV (11:52)
--- NOTE | 2020-03-04 12:00 | ASPIGT_PTH ---
PATIENT: AMADA SMITH LOC: MS3 U#:[id number] AGE/SX: 64/M ROOM: ND311 RE03/02/[address]: Dr. Mariana Zhou DO : 1955 BED: 1 DIS: 03/05/2020 SPEC #: [id number] RECD: 03/04/20 12:22 STATUS: SOUSandie REQ #: [id number] JIMY: 03/04/20 12:[address]: Samir Marshall DEPT: SURGICAL PATHOLOGY RECD BY: Haile Arredondo ENTERED: 03/04/20 12:22 SP TYPE: ASP RAD OTHR DR: MD Dr. Mariana Simpson DO Dr. Mansour Isckarus, MD Dr. Robert D Cebul, MD Richard Dennis Tompkins, ROOFER APPLICATOR-C Tissues: Lung, NOS Procedures: FNA Specimen Adequacy Special Stain Group II Surgery Specimen Level IV Imprint (control) Comments: @ Ordering doctor for SSII edited from to @ by LORIE at 03/04/20 1222 @ Ordering doctor for SUIV edited from to @ brandy MELO at 03/04/20 1222 @ Ordering doctor for IMPRINT edited from to @ brandy MELO at 03/04/20 1222 @ Ordering doctor for FNASA edited from to @ brandy MELO at 03/04/20 1222 @ Submitting doctor edited from to @ brandy MELO at 03/04/20 1222 HEADER OPERATION: CT-guided left lung biopsy PRE-OP DIAGNOSIS: Left mid lung mass TISSUE SUBMITTED: Left mid lung mass 20-gauge core x4 MICROSCOPIC DIAGNOSIS Left mid lung mass, CT-guided core biopsy: Metastatic non-small cell carcinoma, favor adenocarcinoma, consistent colonic primary. See comment. SJ:da 03/05/20 COMMENT The specimen is evaluated at the time of biopsy by Dr. Elliott. Immediate Evaluation = Necrotic cellular material. Immunohistochemistry ([id number]) supports the above diagnosis. The tumor shows extensive necrosis. Only partial panel for MSI by IHC could be reported due to scant amount of viable tumor. Further molecular studies could not be performed as viable tumor is not present in the remaining tissue in the block. This case is discussed with Dr. Castillo on 03/07/20. Case has been reviewed in consultation with Dr. Harden who concurs with the above diagnosis. IDC:AM MICROSCOPIC DESCRIPTION Slides are reviewed. GROSS DESCRIPTION Received in fixative is one container labeled with the patient's name and designated left lung biopsy. The specimen consists of multiple irregular fragments of valerio soft tissue that in aggregate measure 0.5 x 0.2 x 0.1 cm. The specimen is totally submitted in one cassette. Two touch imprints are prepared are prepared at the time of core biopsy. / SJ:rg 03/04/20 TC:[facility]: [id number], [id number] ADDENDUM ADDENDUM ADDENDUM ADDENDUM ADDENDUM ADDENDUM ADDENDUM ADDENDUM ADDENDUM ADDENDUM ADDENDUM 03/25/2020 10:12 ADDENDUM 03/25/2020 10:12 ADDENDUM 03/25/2020 10:12 ADDENDUM 03/25/2020 10:12 ADDENDUM 03/25/2020 [facility] P[facility] RESULT SUMMARY: Abnormal PERTINENT NEGATIVE RESULTS: The following genes are negative for clinically relevant mutations. Mutational hotspots and surrounding exonic regions were interrogated for DNA level point mutations and indels (fusions not assayed). NRAS (exons 2, 3, 4) Please see complete report in e-chart or EMR
--- NOTE | 2020-03-04 12:00 | RAD_ITS ---
STUDY: X-RAY CHEST REASON FOR EXAM: Male, 64 years old. Immediate post lung biopsy TECHNIQUE: AP inspiration and expiration views. COMPARISON: None. FINDINGS: Multiple pulmonary nodules. No evidence of pneumothorax. RAD/Chest Insp/Exp 2 View IMPRESSION: No evidence of pneumothorax on the immediate post left lung biopsy radiographs. Electronically Signed: Leroy Swanson, at 12:28 EDT , Service support ,
--- NOTE | 2020-03-04 13:11 | NURSING ---
Colostomy supplies ordered through [facility]. Pt and aware that supplies are covered at 100%. Approx 5 day turnaround time.
[2020-03-04] MEDS: 0.9% Saline Lock 10 ML Syringe IV (13:29)
[2020-03-04] MEDS: Ensure Clear 120 ML Liquid PO ×3 (13:29→21:09)
--- NOTE | 2020-03-04 13:45 | CASEMGMT ---
JV CM in to provide list of HHC to patient and . Patient would like [facility]. Referral made to [facility] and they are able to accept the patient. RN CM updated and patient regarding HHC acceptance. CM to continue to follow this patient and plan for a safe discharge.
--- NOTE | 2020-03-04 13:55 | RAD_ITS ---
STUDY: X-RAY CHEST REASON FOR EXAM: Male, 64 years old. LUNG BX ; 2 HOURS POST LUNG BIOPSY TECHNIQUE: AP inspiration and expiration views. COMPARISON: Comparison is made with prior examination done earlier in the day. FINDINGS: Status post left lung biopsy. There is no evidence of pneumothorax. Multiple bilateral large pulmonary nodules. RAD/Chest Insp/Exp 2 View IMPRESSION: Status post left lung biopsy. No evidence of pneumothorax. Electronically Signed: Leroy Swanson, at 14:52 EDT , Service support ,
--- NOTE | 2020-03-04 14:51 | CHAPLAIN ---
Type of Pastoral Visit _x__ Initial Visit ___ Follow-up Visit ___ On-call Visit ___ General Patient Visit ___ Spiritual Assessment ___ Family Conference ___ Bereavement ___ Rapid Response ___ Code Blue ___ Other (describe below) Pastoral Care Referral From _x__ Patient _x__ Family ___ Nurse ___ Physician ___ Business Excellence Manager ___ Bar Steward ___ Other (describe below) Sacrament/Intervention _x__ Active listening ___ Anointing ___ Latter Day ___ Bereavement ___ Communion ___ Elaina exploration ___ _x__ Life review _x__ Prayer ___ Reconciliation ___ Sacrament of Sick _x__ Supportive presence ___ Wedding ___ Other (describe below) Pastoral Comments patient welcoming and agreeable to talk with this colleter; spouse is at bedside and informs this colleter of current diagnosis of patient; pt states that he is normally talkative and would welcome visits from colleter; pt states that he is trying to process the information of his health and decisions to be made; pt speaks of his family including two adult sons and younger grandchildren; pt gnosticism background is Quaker but has not been attending christian actively as an adult; spouse attends a jew Taoist Hindu and asks for prayer which is agreeable to pt; pt and spouse again express thanks for support shown
--- NOTE | 2020-03-04 14:57 | PCM.PN.HOSP ---
Patient Problems: Active and Suspected Problems Colonic obstruction (Acute) Bilateral pulmonary metastases (Acute) Descending colon mass (Acute) Subjective: Pt states that he is tired and it has been a busy day. No pain and has not required any pain meds today. Feels okay. Vitals/I&O's: Vital Signs Temp Pulse Resp BP Pulse Ox 99.1 F 61 16 113/62 97 03/04/20 13:16 03/04/20 13:16 03/04/20 13:16 03/04/20 13:16 03/04/20 13:16 Oxygen Flow Rate (L/min) [5] 2 Oxygen Flow Rate (L/min) [4] 2 Oxygen Delivery Method [5] Nasal Cannula Oxygen Delivery Method [4] Nasal Cannula Oxygen Delivery Method [3] Room Air Oxygen Delivery Method [2] Room Air Oxygen Delivery Method [1 ( Room Air Initial Baseline)] Oxygen Delivery Method Room Air Weight: 65.589 kg Body Mass Index (BMI) 19.1 Intake and Output for Last 24 Hours 03/02/20 03/03/20 03/04/20 23:59 23:59 23:59 Intake Total 1450 / 1450 2885.00 / 2885.00 842.50 / 842.50 Output Total 450 / 450 2700 / 2700 2625 / 2625 Balance 1000 / 1000 185.00 / 185.00 -1782.50 / -1782.50 General: Alert, Oriented x3, Cooperative, No apparent distress, Well developed, Well nourished, - - thin WM Lying in bed, appears comfortable, at bedside Lungs: Clear to auscultation, Normal air movement, No rhonchi, No wheeze, No rales Cardiovascular: Regular rate, Regular Rhythm, Normal S1, Normal S2, No murmurs, No Ectopic Activity, No rub noted, No Gallop Abdomen: Bowel Sounds Present, Soft, Non Tender, Non-Distended, - - ostomy in place with good output Extremities: No clubbing, No cyanosis, No edema Psych/Mental Status: Normal Affect, Appropriate, Alert and oriented to time, place, person, mood and affect Laboratory Results 03/04/20 05:55: Iron 24 L, TIBC 249 L, Ferritin 92 03/04/20 05:55: Miscellaneous Test Cancelled 03/04/20 05:55: PT 13.4, INR 1.1 03/04/20 05:55: Carcinoembryonic Ag Pending Current Medications Acetaminophen (Tylenol) 650 mg PO Q6H PRN PRN PRN Reason: Pain Score 1-10/Temp > 100.7 F Enoxaparin Sodium (Lovenox) 40 mg SC DAILY [facility] Last Admin: 03/03/20 08:26 Dose: 40 mg Documented by: Sodium Chloride () 1,000 mls @ 50 mls/hr IV .Q20H [facility] Last Infusion: 03/04/20 13:29 Dose: 50 mls/hr Documented by: Pantoprazole Sodium 40 mg/ (Sodium Chloride) 110 mls @ 330 mls/hr IV Q12 [facility] Last Infusion: 03/04/20 10:17 Dose: Infused Documented by: Cefazolin Sodium 2 gm/ Sodium (Chloride) 110 mls @ 150 mls/hr IV X1 ONE Stop: 03/05/20 11:43 Sodium Chloride () 500 mls @ 0 mls/hr IV .Q0M [facility] Stop: 03/04/20 23:59 Last Infusion: 03/04/20 13:33 Dose: Infused Documented by: Morphine Sulfate () 2 - 4 mg IV Q1H PRN PRN PRN Reason: Pain Score 1-10/10 Morphine Sulfate () 2 - 4 mg IV Q1H PRN PRN PRN Reason: Pain Score 1-10/10 Nutritional Formula (Lactose Free) (Ensure Clear) 120 ml PO 4X/DAY [facility] Last Admin: 03/04/20 13:29 Dose: 120 ml Documented by: Ondansetron HCl (Zofran) 4 mg IV Q8H PRN PRN PRN Reason: NAUSEA/VOMITING Oxycodone HCl (Oxyir) 5 mg PO Q4H PRN PRN PRN Reason: Pain Score 4-5/10 Sodium Chloride () 10 - 40 ml IV UD PRN PRN Reason: SALINE FLUSH Last Admin: 03/04/20 13:29 Dose: 10 ml Documented by: Zolpidem Tartrate (Ambien (Generic)) 5 mg PO QHS PRN PRN PRN Reason: INSOMNIA STROKE Vital Signs/Narrative: Vital Signs Temp Pulse Pulse Pulse Pulse Pulse Pulse 03/04/20 13:16 99.1 F 61 03/04/20 12:51 55 L 03/04/20 12:36 55 L 03/04/20 12:21 58 L 03/04/20 12:16 60 03/04/20 12:11 71 03/04/20 12:06 65 03/04/20 11:41 63 63 69 65 70 64 Resp Resp Resp Resp Resp Resp BP 03/04/20 13:16 16 113/62 03/04/20 12:51 17 122/65 H 03/04/20 12:36 24 H 115/65 03/04/20 12:21 24 H 107/61 03/04/20 12:16 23 H 107/63 03/04/20 12:11 16 102/66 03/04/20 12:06 23 H 120/67 03/04/20 11:41 12 12 14 16 19 H 20 H 124/78 H BP BP BP BP BP Pulse Ox 03/04/20 13:16 97 03/04/20 12:51 95 03/04/20 12:36 95 03/04/20 12:21 95 03/04/20 12:16 95 03/04/20 12:11 96 03/04/20 12:06 97 03/04/20 11:41 124/78 H 134/60 H 125/67 H 113/64 113/59 L 95 Medical Necessity - Tobacco Use Smoking Status: Former smoker Tobacco Use: Cigars Assessment/Plan All Active Problems Colonic obstruction (Acute) Bilateral pulmonary metastases (Acute) Descending colon mass (Acute) Colonic Obstruction with Mass -OR on 03/02/2020 for Loop distal transverse Colostomy -on CLD started today -lung bx done and pending -bone scan in am -CEA in am -[facility] in am per Dr. 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
--- NOTE | 2020-03-04 17:06 | CON.PCM_ITS ---
- Problem List (1) Bilateral pulmonary metastases Status: Acute (2) Descending colon mass Status: Acute (3) Colonic obstruction Status: Acute (4) Iron deficiency anemia secondary to blood loss (chronic) Status: Chronic Consult Referring Physician: Dr. Marshall Consult Results: Metastatic colorectal cancer Subjective Date of Service:: 03/04/20 Chief Complaint: Abd Pain History of Present Illness: 64-year-old gentleman who presented with acute bowel obstruction (nausea, vomiting, constipation) and underwent an urgent divergent colostomy on March 02, 2020. CT scan abdomen and pelvis March 02, 2020: FINDINGS: The visualized lung bases demonstrate pulmonary masses bilaterally up to 7.3 x 6.2 cm. The visualized portions of the heart are within normal limits. 9 mm right hepatic cyst in the liver. Normal gallbladder and extrahepatic biliary system. Normal spleen. Normal pancreas. Normal bilateral adrenal glands. Punctate lower pole stone in the right kidney. Hydronephrosis of the left kidney with possible UPJ obstruction. Normal visualized stomach. Dilated small intestine with with retained contents. Wall thickening with possible mass in the proximal descending colon likely causing at least partial obstruction distended proximal colon. The appendix is visualized and appears normal. Normal abdominal aorta. Normal inferior vena cava. Normal retroperitoneum. Mild ascites. Normal urinary bladder. Trace pelvic free fluid. Normal abdominal wall. Normal osseous structures. IMPRESSION: Multiple pulmonary masses bilaterally. Possible proximal descending colonic mass causing at least partial obstruction. Mild ascites and pelvic fluid. CT scan of the chest March 03, 2020: FINDINGS: Enteric tube is present with the distal end in the left upper quadrant and in the proximal stomach. The lungs are hyperexpanded. There are multiple large pulmonary masses. The largest left sided mass is located in the left lower lobe and measures approximately 9.4 x 5.0 x 7.6 cm in size. There are multiple large right middle lobe masses. There are large lingular and left upper lobe masses. These masses appear to have multifocal calcifications within them. These are presumably metastasis. There is no demonstrated pleural abnormality. Normal heart and pericardium. There are multiple small lymph nodes within the mediastinum, which are normal in size and morphology. There is enlargement of the left hilar area suggesting hilar lymphadenopathy. Normal unenhanced pulmonary arteries. There is atherosclerotic tortuosity of the aortic arch and descending thoracic aorta. Maximum transverse dimension of the ascending thoracic aorta measures approximately 3.8 cm. Normal osseous structures. There is increased attenuation of the gallbladder that may be secondary to biliary sludge versus vicarious excretion of contrast. IMPRESSION: Multiple bilateral large pulmonary masses as described, likely secondary to metastatic disease. He has not been feeling well since December 2019, with increasing abdominal cramping, constipation, nausea, more than 20 pounds weight loss. An elective outpatient colonoscopy was scheduled but failed due to inability to take the prep. His past medical history is notable for being status post partial left nephrectomy in his 20s for benign disease, and nonmelanoma skin cancers. He quit cigarette smoking more than 10 years ago but continued to smoke cigars. Past Medical History: Chronic Problems Iron deficiency anemia secondary to blood loss (chronic) (Chronic) Anemia (Chronic) Benign prostatic hyperplasia (Chronic) Status post left partial nephrectomy (Chronic) Past Medical/Surgical History: Past Medical History - Most Recent Inpatient Visit Past Medical History Start: 03/02/20 19:15 Text: Status: Complete Freq: ONCE Protocol: Document 03/02/20 19:19 BDM (Rec: 03/02/20 19:22 BDM [id number]) BMI Required to complete PMH What is Patient's BMI 18.8 Past Medical History Unable History Recalled No Query Text:Pt Unable/Family Not Present Neurologic Medical History Hx Stroke/TIA No Hx Dementia/Alzheimer's No Hx Parkinson's Disease No Hx Seizures No Hx Multiple Sclerosis No Hx Migraines No Cardiac Medical History VTE Present on Admission No Hx of Deep Vein Thrombosis/VTE/PE No Hx Hypertension No Hx Chest Pain/Angina No Hx Heart Attack No Hx Cardiac Surgery/Stents/Etc. No Hx Heart Failure No Hx Pacemaker/AICD No Hx Irregular Heartbeat and/or Afib No Hx Anticoagulant Therapy No Query Text:(Coumadin, Aspirin, Plavix, Xarelto, etc.) Hx Pain in Legs when Walking/Leg Cramps No Respiratory Medical History Hx COPD No Hx Emphysema No Hx Smoking Yes: 5 cigars daily for 40 yrs Smoking Status Former smoker Tobacco Use Cigars Hx Smoking Cessation Date 01/24/20 Hx Tobacco Use in last 12 months Yes Sent to [facility] Yes Hx Sleep Apnea No Do you snore loudly (louder than talking No or can be heard through closed doors)? Do you often feel tired/ fatigued/ No sleepy during daytime? Has anyone observed you stop breathing No during sleep? STOP Results Negative GI Medical History Hx Ulcer No Hx Hepatitis No Hx Cirrhosis No Hx GI Bleed No Hx Unplanned Weight Loss No Genitourinary Medical History Indwelling Catheter in Place on Arrival/ No Admission Hx Renal Disease No: enlarged prostate Hx Dialysis No Musculoskeletal History Hx Arthritis No Hx Rheumatoid Arthritis No Endocrine Medical History Hx Diabetes No Hx Thyroid Disease No Hematologic Medical History Hx of Blood Transfusion No Hx of Transfusion in last 3 Months No Ever experience any problems with No transfusion(s)? Hx of Preganancy in last 3 Months N/A Nurse Filling Out Transfusion & [id number] Questions: Date: 03/02/20 Time: 19:21 Psycho/Social Medical History Hx Depression No Hx Anxiety No Hx Behavior Disorder No Hx Alcohol Use No: Quit drinking in January Hx Substance Use No Other Medical History Hx Blood Disorders No Hx Anemia No Hx Cancer Yes: skin Hx Drug Resistant Organism No Wound/Pressure Injury Present on Arrival Yes: colostomy from surgery /Admission Query Text:If yes, chart assessment in Shift/Clinical Findings Central Line/PICC/VAD Present on Arrival No /Admission Antibiotics within last 7 days? Yes Methicillin Resistant Staphylococcus aureus Screening Active MRSA No Risk for Readmission Number of Risk Factors 1 At Risk for Readmission Patient is Not at Risk Patient is eligible for Call Back N Maternal Family History: No pertinent history, - - No family history of colon cancer. Paternal Family History: No pertinent history - Social History Lives: Spouse/ Significant Other Smoking Status: Former smoker Tobacco Use: Cigars Alcohol: None Drugs: None Allergies/Adverse Reactions: Allergy/AdvReac Type Severity Reaction Status Date / Time adhesive tape AdvReac Rash Verified 03/02/20 10:05 Review of Systems Constitutional:: Reports: Weakness, Fatigue, Weight loss - 20+ pounds. Denies: Fever, Sweats, Appetite change - Patient reports that his appetite for food is unchanged but has not been eating due to nausea and abdominal cramping, Chills Cardiovascular:: Denies: Chest pain, Palpitations, Dyspnea on exertion, Orthopnea, PND, Shortness of breath Respiratory: Denies: Cough, Hemoptysis, Shortness of Breath, Wheezing Gastrointestinal:: Reports: - - His stools has been black for less than 1 week, he attributed to taking Pepto-Bismol for increasing constipation Nausea and vomiting resolved since the time of his surgery and he has now a colostomy bag. Denies: Abdominal pain, Nausea, Vomiting, Diarrhea, Constipation, Hematochezia Genitourinary: Denies: Dysuria, Hematuria, 15, Flank pain Musculoskeletal:: Denies: Back pain, Myalgia, Arthralgia Skin: Denies: Rash, Skin Changes, Wounds Neurological:: Denies: Headache, Dizziness, Visual changes, Tinnitus, Hearing loss Psychiatric: Denies: Anxiety, Depression, Homicidal Ideations, Suicidal Ideations Vital Signs Temperature 98.1 F 03/04/20 17:02 Temperature Source Oral 03/04/20 17:02 Pulse Rate 59 L 03/04/20 17:02 Pulse Strength Normal (2+) 03/04/20 08:34 Respiratory Rate 12 03/04/20 17:02 Respiratory Effort Non-Labored 03/02/20 19:40 Respiratory Depth Normal 03/02/20 19:40 Respiratory Pattern Normal 03/04/20 12:51 Blood Pressure 114/69 03/04/20 17:02 Blood Pressure Mean 84 03/04/20 17:02 Blood Pressure Source Monitor 03/04/20 17:02 Blood Pressure Position Semi-Fowlers 03/04/20 17:02 Blood Pressure Location Right Arm 03/04/20 17:02 Baseline BP 136/89 03/04/20 13:16 Pulse Ox 100 03/04/20 17:02 Oxygen Delivery Method Room Air 03/04/20 17:02 Oxygen Flow Rate (L/min) 2 03/04/20 11:41 - Physical Exam General: Alert, Oriented x3, No apparent distress, - - Appears malnourished but not toxic HEENT: Atraumatic, PERRLA, EOMI, Normocephalic Oropharynx:: Pale mucosa, Dry mucosa Neck:: Supple, Trachea midline. Negative for: JVD, bilateral Cardiac:: Regular rate, Regular rhythm, Normal S1, Normal S2. Negative for: Murmur Lungs: Clear to auscultation, Diminished, Excusion symmetrical. Negative for: Rhonchi, Wheezes Abdomen:: Soft, Non-tender, Non-distended, - - Colostomy with black liquid stool. Negative for: Hepatosplenomegaly Extremities:: Negative for: Cyanosis, Edema Neurological: Neuro grossly intact Skin:: Negative for: Lesions, Rash, Petechiae, Ecchymosis Psychiatric:: Appropriate affect, Euthymic Lymphatics:: Negative for: Cervical lymphadenopathy, Supraclavicular lymphadenopathy, Axillary lymphadenopathy Laboratory Data: Laboratory Tests Laboratory Tests 03/02/20 03/02/20 03/02/20 10:27 10:27 10:27 WBC Hgb 13.4 Hct 42.2 Plt Count Iron TIBC Ferritin Total Bilirubin 0.50 AST 32 ALT 36 Alkaline Phosphatase 138 H Total Protein 7.9 Albumin 3.7 Carcinoembryonic Ag Pending 03/03/20 03/04/20 06:25 05:55 WBC 10.3 Hgb 11.3 L Hct 35.5 L Plt Count 528 H Iron 24 L TIBC 249 L Ferritin 92 Total Bilirubin AST ALT Alkaline Phosphatase Total Protein Albumin Carcinoembryonic Ag Diagnostic Data: Diagnostic Data I personally reviewed patient's CT scan images and concur with the findings. Abdomen/Pelvis CT 03/02/20 10:27 IMPRESSION: Multiple pulmonary masses bilaterally. Possible proximal descending colonic mass causing at least partial obstruction. Mild ascites and pelvic fluid. Electronically Signed: Terry Doshi DO at 13:19 EDT Tel [phone], Service support , KUB X-Ray 03/02/20 13:45 IMPRESSION: Recommend advancing NG tube 5 cm. Electronically Signed: Robi Loyola MD ([place]) at 15:26 EDT , Service support , Abdomen X-Ray 03/03/20 04:19 IMPRESSION: No bowel obstruction Electronically Signed: Jose Roberto Salcedo MD at 8:49 EDT Tel , Service support , Chest CT 03/03/20 18:39 IMPRESSION: Multiple bilateral large pulmonary masses as described, likely secondary to metastatic disease. Electronically Signed: Isa Lange MD at 1:53 EDT , Service support , Biopsy CT 03/04/20 11:04 IMPRESSION: 1. CT directed core needle biopsy of the left lower lobe pulmonary nodule using CT image guidance with image documentation as described. Pathology results are pending. 2. Conscious Sedation protocol utilized with independent monitoring. Electronically Signed: Leroy Swanson, at 13:05 EDT , Service support , Chest X-Ray 03/04/20 13:55 IMPRESSION: Status post left lung biopsy. No evidence of pneumothorax. Electronically Signed: Leroy Swanson, at 14:52 EDT , Service support , Assessment and Plan 64-year-old gentleman presenting with bowel obstruction and CT scans are most consistent with carcinoma of the descending colon with bilateral multiple lung metastases. Patient is status post divergent colostomy March 02, [address]-guided lung mass biopsy March 04, 2020. He is malnourished lost more than 20 pounds of weight since onset of his illness in December 2019 and is anemic with findings consistent with anemia of cancer and iron deficiency most likely chronic GI blood loss from the malignancy. Recommendations: 1. Diagnostic: CEA and bone scan to complete staging. Await pathology and request microsatellite stability and extended K-david/N-david panel once colonic carcinoma is confirmed. 2. IV iron for iron deficiency to optimize blood counts prior to systemic therapy 3. Systemic therapy based on final pathology. Disease being metastatic stage IV is incurable and goal of therapy is palliation of symptoms and a modest survival benefit. 4. Central venous access requested for anticipated systemic intravenous anticancer therapy. 5. Nutrition service consulted. Patient was seen with his , impression and plan discussed. He will be followed up in cancer center ~ 3W following discharge to allow for postoperative recovery. Shantell Pastor MD Casing Tester, [facility] Divisions of Medical Oncology & Hematology Department of Internal Medicine [place] [phone] This note was generated using a voice recognition system software. Although it was reviewed by the author prior to finalization, it may still contain incorrect words, spelling, and punctuation that were not noted when reviewing prior to saving. If a clinically significant typo or inaccurately typed phrase is noted, please notify the author. Medications: Prescriptions This Visit Medication Instructions Recorded Omeprazole [Prilosec] 20 mg PO BID 03/02/20 Medications Added to Medication List This Visit Category Date Time Status 0.9% Normal Saline 500 ml Med 03/04/20 11:15 Active IV KVO mls/hr Cefazolin 2 gm Med 03/05/20 11:00 Active 0.9% Normal Saline 100 ml IV X1 Iron Sucrose Complex [Venofer] 300 mg Med 03/04/20 17:15 Active 0.9% Normal Saline 250 ml IV X1 Primary Care Provider: Jose Roberto Bueno, [facility] Referring Provider:
[2020-03-04 18:22] LABS: International Normalized Ratio 1.1; Prothrombin Time (Protime)PT. 14.1 SECONDS (11.7-14.9)
[2020-03-04 18:23] LABS: Partial Thromboplast Time 33.4 Seconds (24.1-36.2)
[2020-03-04] MEDS: 0.9% Normal Saline 1,000 ML 50 ML IV (21:06)
[2020-03-05] VITALS (10 sets, daily range): BP systolic 98–136; BP diastolic 66–89; PULSE 54–62; RESP 16–18; TEMP 36.1–36.8; O2SAT 95–97; BMI 19.1
[2020-03-05 05:08] LABS: Absolute Lymphocyte Count 1.15 X10^3/uL (0.83-4.51); Absolute Neutrophil Count 6.2 X10^3/uL (2.0-7.7); Basophil# 0.06 X10^3/uL; Basophil% 0.7 % (0-1); Eosinophil# 0.55 X10^3/uL; Eosinophils% 6.2 % (0-5); Hematocrit 35.3 % (40-54); Hemoglobin 11.2 g/dL (13.0-16.5); Lymphocyte # 1.15 X10^3/ul (4.0); Mean Corp Hgb Conc 31.7 g/dL (32-36); Mean Corpuscular Hgb 27.4 pg (27.0-32.0); Mean Corpuscular Volume 86.3 fL (80-94); Mean Platelet Vol. 8.4 fl (6.2-12.0); Monocyte# 0.91 X10^3/uL; Monocyte% 10.3 % (0-10); NRBC Flagged by Analyzer 0 % (0-5); Neutrophil # 6.16 X10^3/uL (2.7-7.7); Neutrophil % 69.6 % (47-70); Platelet Count 498 K/mm3 (150-450); RBC Distribution Width CV 14.3 % (11.6-14.6); Red Blood Count 4.09 M/mm3 (4.6-6.2); White Blood Count 8.9 K/mm3 (4.4-11.0)
[2020-03-05 05:27] LABS: Anion Gap 8 (5-15); BUN 12 mg/dL (7-18); BUN/Creat Ratio 18.8 RATIO (10-20); Calcium,Total 8.4 mg/dL (8.5-10.1); Chloride 103 mmol/L (98-107); Creatinine, Serum 0.64 mg/dL (0.70-1.30); EST Glomerular Filtration Rate 134 mL/min (>60); Est Glom Filt Rate - Afr Amer 162 mL/min (>60); Glucose 90 mg/dL (74-106); Potassium 3.5 mmol/L (3.5-5.1); Sodium Level 137 mmol/L (136-145)
--- NOTE | 2020-03-05 06:27 | DCINST_ITS ---
Discharge Diet: Light diet - advance as tolerated - if you have questions about your diet instructions, please talk to you doctor. Discharge Activity: May Not Drive - for 1 week or while taking narcotic pain medicine., May Shower May shower in (days): 0 Lifting Restrictions: 10 pounds Call your doctor if your incision/area has: Continuous Slow Oozing, Sudden Increased Bleeding, Increased Pain/ Swelling, Increased Redness, Foul Smelling Discharge Call your doctor if you observe: Fever of 101 or Higher Suture Line Care: Avoid Pulling/Pushing, Avoid Pinching/Bending Instructions: Discharge Instructions Needle Biopsy: Lung Allergies/Adverse Reactions: Allergies adhesive tape Adverse Reaction (Verified 03/02/20 10:05) Rash Medications to take at Discharge Omeprazole [Prilosec] 20 mg PO BID 03/02/20 Primary Care Physician: Jose Roberto Bueno, [facility] [Primary Care Provider] - Test Results: Test results from this visit will be discussed in further detail at your follow- up appointment, if applicable. Please Follow Up With: Samir Marshall MD - [phone] When: Call for Appt on please
[2020-03-05] MEDS: Cefazolin 2 GM in 0.9% Normal Saline 100 ML IV (07:07)
[2020-03-05] MEDS: Bupivacaine Mpf 0.5% 30 ML VIAL (07:40)
--- NOTE | 2020-03-05 07:52 | OP.PCM_ITS ---
Problem List (1) Descending colon mass Status: Acute (2) Colonic obstruction Status: Acute (3) Bilateral pulmonary metastases Status: Acute Report of Operation Date of Procedure: 03/05/20 Pre-Operative Diagnosis: Metastatic colon cancer to the lungs Post-Operative Diagnosis: Same Surgery/Procedure Performed:: Right internal jugular 6 Mal[place]ian port placement Description of Surgical Findings:: Timeout informed consent was obtained. 64-year-old gentleman was taken to the operating placement table underwent monitored anesthesia care and local anesthetic. Ancef 2 g given intravenously. The right neck and chest were sterilely prepped and draped. 1% lidocaine mixed 50-50 with 0.5% Marcaine was used as a local anesthetic. Throughout the procedure 25 cc was used. Ultrasound was used to identify the right internal jugular vein local was instilled micropuncture needle inserted micropuncture wire inserted local instilled down upon the right chest wall. Transverse incision was made midclavicular line second intercostal space. Subcutaneous pocket was created with electrocautery. The tubing was tunneled from the chest to the neck site. Micropuncture sheath dilator was placed over the wire. A 035 J-wire was placed. Fluoroscopy demonstrated good positioning. Sheath dilator was placed over the wire and the wire and dilator removed the catheter advanced through the sheath the sheath was split the catheter was positioned at the SVC atrial junction.. The catheter was amputated to length and connected to the port and secured with port attachment device. The port was placed in the pocket and secured there with 2-0 silk. Skin edges approximate interrupted 3-0 Vicryl subdermal stitches. The neck site was closed interrupted 5-0 Vicryl subdermal stitch. Steri-Strip Telfa OpSite dressings applied. The port was accessed and aspirated easily it was flushed with heparinized saline and then 3 cc of heparin solution. Sponge and instrument and needle counts were reported the surgeon to be correct Specimens none. Drains none. Blood loss minimal. Stat portable chest x-ray is pending Samir Marshall M.D., F.A.C.S. Type of Anesthesia:: Local MAC Anesthesiologist: Jose Durham
--- NOTE | 2020-03-05 07:55 | PCM.PN.BLA ---
Progress Note Placed, chest x-ray pending, patient ready for surgical discharge, anticipate office follow-up in 2 days for removal stomal bar. Samir Marshall M.D., F.A.C.S. STROKE Vital Signs/Narrative: Vital Signs Temp Pulse Resp BP Pulse Ox 03/05/20 07:10 95 03/05/20 05:49 98.3 F 61 18 125/75 H 96
--- NOTE | 2020-03-05 08:03 | RAD_ITS ---
STUDY: X-RAY CHEST REASON FOR EXAM: Male, 64 years old. Port placement. TECHNIQUE: Single AP portable view of the chest. COMPARISON: Comparison is made with prior study dated 03/04/2020. FINDINGS: A right-sided viola catheter has been placed. The tip is at the junction of the superior vena cava and right atrium. Stable bilateral multiple large pulmonary nodules worse in the left hemithorax. There is no demonstrated pleural abnormality. Normal size heart. Normal mediastinum and leonarda. Normal visualized pulmonary arteries. Normal visualized aortic arch and descending thoracic aorta. There are diffuse degenerative changes of the visualized thoracic spine. Normal visualized ribs, clavicles, and shoulders. There is no demonstrated abnormality of the visualized soft tissue structures of the upper abdomen. RAD/CXR for Line Placement IMPRESSION: A right-sided Port-A-Cath has been placed. The tip is at the junction of the superior vena cava and right atrium. Electronically Signed: Leroy Swanson, at 10:52 EDT , Service support ,
--- NOTE | 2020-03-05 08:47 | NURSING ---
Pt returned to room from port placement. Pt awake and alert. minimal stool noted in appliance at this time. pt states that he was able to empty the appliance last evening by himself. states feels he will be able to care for it fine. Home Health is scheduled to see patient Wednesday. no further needs voiced at this time. pt to follow up with Dr Marshall .
[2020-03-05] MEDS: Ensure Clear 120 ML Liquid PO (09:00)
[2020-03-05] MEDS: Enoxaparin 40 MG/0.4 ML Syringe SC (09:00)
--- NOTE | 2020-03-05 10:10 | PCM.PN.HOSP ---
Patient Problems: Active and Suspected Problems Colonic mass (Acute) Colonic obstruction (Acute) Bilateral pulmonary metastases (Acute) Descending colon mass (Acute) Subjective: Pt is feeling ok today. MedPort done this am. States oncology was by and reviewed basic info but gave no other information. Discussed with pt that this is most likely metastatic disease of some kind with suspected colon primary and has not curative treatment and treatment would be for palliation and to extend life. Discussed the function of palliative care and pt is agreeable to talking to them as outpt, Vitals/I&O's: Vital Signs Temp Pulse Resp BP Pulse Ox 97.6 F L 57 L 16 112/66 97 03/05/20 09:00 03/05/20 09:00 03/05/20 09:00 03/05/20 09:00 03/05/20 09:00 Oxygen Flow Rate (L/min) [5] 2 Oxygen Flow Rate (L/min) [4] 2 Oxygen Delivery Method [5] Nasal Cannula Oxygen Delivery Method [4] Nasal Cannula Oxygen Delivery Method [3] Room Air Oxygen Delivery Method [2] Room Air Oxygen Delivery Method [1 ( Room Air Initial Baseline)] Oxygen Delivery Method Room Air Weight: 65.589 kg Body Mass Index (BMI) 19.1 Intake and Output for Last 24 Hours 03/03/20 03/04/20 03/05/20 23:59 23:59 23:59 Intake Total 2885.00 / 2885.00 2085.00 / 2285.00 889.17 / 889.17 Output Total 2700 / 2700 4125 / 5375 3200 / 3200 Balance 185.00 / 185.00 -2040.00 / -3090.00 -2310.83 / -2310.83 General: Alert, Oriented x3, Cooperative, No apparent distress, Well developed, Well nourished HEENT: Atraumatic, PERRLA, EOMI, Normocephalic, Sluggish Pupils Oral: Moist Mucosa, No Gingival or Mucosal Lesions/ Ulcerations Neck: Supple, Trachea Midline, - - R IJ MedPort in place-dressing is clean a dry Lungs: Clear to auscultation, Normal air movement, No rhonchi, No wheeze, No rales Cardiovascular: Regular rate, Regular Rhythm, Normal S1, Normal S2, No murmurs, No Ectopic Activity, No rub noted, No Gallop Abdomen: Bowel Sounds Present, Soft, Non Tender, Non-Distended, No hernias noted, - - ostomy with good output Extremities: No clubbing, No cyanosis, No edema, Peripheral Pulses Normal Skin: No rashes, No breakdown Musculoskeletal: No Tenderness to Palpation of Joints or Extremities, No Muscle Wasting Neurological: Cranial nerves II-XII grossly intact, Neuro grossly intact, Motor Exam 5/5 strength throughout, Muscle tone normal, Coordination normal Psych/Mental Status: Normal Affect, Appropriate, Alert and oriented to time, place, person, mood and affect Laboratory Results 03/04/20 18:05: PT 14.1, INR 1.1, APTT 33.4 03/05/20 05:02: WBC 8.9, RBC 4.09 L, Hgb 11.2 L, Hct 35.3 L, MCV 86.3, MCH 27.4, MCHC 31.7 L, RDW Std Deviation 45.0 H, RDW Coeff of Cherry 14.3, Plt Count 498 H, MPV 8.4, Immature Gran % (Auto) 0.200, Neut % (Auto) 69.6, Lymph % (Auto) 13.0 L, [place]agoner % (Auto) 10.3 H, Eos % (Auto) 6.2 H, Baso % (Auto) 0.7, Absolute Neuts (auto) 6.2, Absolute Lymphs (auto) 1.15, Nucleated RBC % 0 03/05/20 05:02: Sodium 137, Potassium 3.5, Chloride 103, Carbon Dioxide 26.0, Anion Gap 8, BUN 12, Creatinine 0.64 L, Estim Creat Clear Calc 109.60, Est GFR (MDRD) Af Amer 162, Est GFR (MDRD) Non-Af 134, BUN/Creatinine Ratio 18.8, Glucose 90, Calcium 8.4 L 03/05/20 05:02: Carcinoembryonic Ag Pending Current Medications Acetaminophen (Tylenol) 650 mg PO Q6H PRN PRN PRN Reason: Pain Score 1-10/Temp > 100.7 F Enoxaparin Sodium (Lovenox) 40 mg SC DAILY [facility] Last Admin: 03/05/20 09:00 Dose: 40 mg Documented by: Sodium Chloride () 1,000 mls @ 50 mls/hr IV .Q20H [facility] Last Infusion: 03/05/20 09:01 Dose: 0 mls/hr Documented by: Pantoprazole Sodium 40 mg/ (Sodium Chloride) 110 mls @ 330 mls/hr IV Q12 [facility] Last Admin: 03/05/20 09:01 Dose: 330 mls/hr Documented by: Cefazolin Sodium 2 gm/ Sodium (Chloride) 110 mls @ 150 mls/hr IV X1 ONE Stop: 03/05/20 11:43 Last Infusion: 03/05/20 07:22 Dose: Infused Documented by: Morphine Sulfate () 2 - 4 mg IV Q1H PRN PRN PRN Reason: Pain Score 1-10/10 Morphine Sulfate () 2 - 4 mg IV Q1H PRN PRN PRN Reason: Pain Score 1-10/10 Nutritional Formula (Lactose Free) (Ensure Clear) 120 ml PO 4X/DAY [facility] Last Admin: 03/05/20 09:00 Dose: 120 ml Documented by: Ondansetron HCl (Zofran) 4 mg IV Q8H PRN PRN PRN Reason: NAUSEA/VOMITING Oxycodone HCl (Oxyir) 5 mg PO Q4H PRN PRN PRN Reason: Pain Score 4-5/10 Sodium Chloride () 10 - 40 ml IV UD PRN PRN Reason: SALINE FLUSH Last Admin: 03/04/20 13:29 Dose: 10 ml Documented by: Zolpidem Tartrate (Ambien (Generic)) 5 mg PO QHS PRN PRN PRN Reason: INSOMNIA STROKE Vital Signs/Narrative: Vital Signs Temp Pulse Resp BP Pulse Ox 03/05/20 09:00 97.6 F L 57 L 16 112/66 97 03/05/20 08:16 98.0 F 54 L 16 109/69 95 03/05/20 08:09 62 16 102/70 96 03/05/20 08:06 57 L 16 108/67 96 03/05/20 08:00 56 L 16 106/70 96 03/05/20 07:59 97.0 F L 59 L 16 98/66 95 03/05/20 07:10 95 Medical Necessity - Tobacco Use Smoking Status: Former smoker Tobacco Use: Cigars Assessment/Plan All Active Problems Colonic mass (Acute) Colonic obstruction (Acute) Bilateral pulmonary metastases (Acute) Descending colon mass (Acute) Descending Colonic Obstruction with Mass -OR on 03/02/2020 for Loop distal transverse Colostomy -diet advanced to regular -lung bx done 03/04 and pending results -bone scan to be done as an outpt -CEA pending -Medport done today -Onc following -this is uncurable disease and per notes goal of therapy is palliation and survival benefit -will consult palliative care Multiple B Lung Nodules -L Lung bx done -suspected metastatic disease Fe Deficiency Anemia -IV iron for now per Heme/onc to improve counts prior to therapy -hgb stable Thrombocytosis -suspect reactive -trending down PUD with H.Pylori -PPI IV -PO once able 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
--- NOTE | 2020-03-05 10:43 | DCINST_ITS ---
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) Anemia (Chronic) Colonic obstruction (Acute) Bilateral pulmonary metastases (Acute) Descending colon mass (Acute) Benign prostatic hyperplasia (Chronic) Status post left partial nephrectomy (Chronic) You will use the following diet at home:: No restrictions, Other - supplements Your food should be the consistency of: Regular Your liquids should be the consistency of: Regular/Thin Discharge Activity: May Not Drive - for 1 week or while taking narcotic pain medicine., May Shower May shower in (days): 0 May resume sexual activity in: No Restrictions Call your doctor if your incision/area has: Continuous Slow Oozing, Sudden Increased Bleeding, Increased Pain/ Swelling, Increased Redness, Foul Smelling Discharge Call your doctor if you observe: Fever of 101 or Higher Suture Line Care: Avoid Pulling/Pushing, Avoid Pinching/Bending Cleanse incision/area with: Do not get Incision Wet Instructions: Discharge Instructions Needle Biopsy: Lung Pending Tests on Discharge: CEA. Needs Bone Scan as an Outpt Allergies/Adverse Reactions: Allergies adhesive tape Adverse Reaction (Verified 03/02/20 10:05) Rash Medications to take at Discharge Omeprazole [Prilosec] 20 mg PO BID 03/02/20 Ensure Clear 120 ml PO 4X/DAY #120 liquid 03/05/20 Hydrocodone Bitart/Apap 5-325 [[place] 5MG-325MG] 1 tab PO Q6H PRN PRN 3 Days #10 tab 03/05/20 Iron,Carbonyl [Iron Chews] 15 mg PO BID #60 tab.chew 03/05/20 The following prescriptions were given: Ensure Clear 120 ml PO 4X/DAY #120 liquid Transmission Status: Pending to [facility] Iron,Carbonyl [Iron Chews] 15 mg PO BID #60 tab.chew Transmission Status: Pending to [facility] Hydrocodone Bitart/Apap 5-325 [[place] 5MG-325MG] 1 tab PO Q6H PRN PRN 3 Days #10 tab PRN Reason: Pain Transmission Status: Received by [facility] Primary Care Physician: Jose Roberto Bueno, GI ASST-C [Primary Care Provider] - Test Results: Test results from this visit will be discussed in further detail at your follow- up appointment, if applicable. Please Follow Up With: Samir Marshall MD - [phone] When: Call for Appt on please Please Follow Up With: Shantell Pastor MD When: as directed
--- NOTE | 2020-03-05 10:46 | PCM.DC.SUM ---
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 Fluoro for CVP/PICC/PORT [RAD] Urgent 03/05/20 08:03 CXR for Line Placement [RAD] Urgent STUDY: CT CHEST WITHOUT CONTRAST REASON FOR EXAM: Male, 64 years old patient presents for evaluation of chest masses identified on recent CT of the abdomen and pelvis done earlier. Patient is recently postop with colostomy last evening. Patient has history of skin cancer, and is status post nephrectomy. RADIATION DOSAGE (If Supplied By Facility): CTDIvol = ( 7.86 ) mGy, DLP = ( 320.08 ) mGycm TECHNIQUE: Transaxial imaging was performed without the administration of intravenous contrast material. Multiplanar coronal and sagittal images were reformatted. Individualized dose optimization techniques were used for this CT. COMPARISON: Prior comparable comparison studies are not available for review at this time. FINDINGS: Enteric tube is present with the distal end in the left upper quadrant and in the proximal stomach. The lungs are hyperexpanded. There are multiple large pulmonary masses. The largest left sided mass is located in the left lower lobe and measures approximately 9.4 x 5.0 x 7.6 cm in size. There are multiple large right middle lobe masses. There are large lingular and left upper lobe masses. These masses appear to have multifocal calcifications within them. These are presumably metastasis. . There is no demonstrated pleural abnormality. Normal heart and pericardium. There are multiple small lymph nodes within the mediastinum, which are normal in size and morphology. There is enlargement of the left hilar area suggesting hilar lymphadenopathy. Normal unenhanced pulmonary arteries. There is atherosclerotic tortuosity of the aortic arch and descending thoracic aorta. Maximum transverse dimension of the ascending thoracic aorta measures approximately 3.8 cm. Normal osseous structures. There is increased attenuation of the gallbladder that may be secondary to biliary sludge versus vicarious excretion of contrast. CT/Chest without Contrast IMPRESSION: Multiple bilateral large pulmonary masses as described, likely secondary to metastatic disease. Electronically Signed: Isa Lange MD Consultations 03/02/20 18:39 Consult: Onc/Wound/tobacco scrap sifter Routine General Surgery Heme/Onc Operations: - - Transverse colon Loop Ostomy MedPort Placement Summary of Care Provided: The patient is a 64 year old M who presented to the ED on 03/02 with abdominal pain that started in December and had been ongoing since then. A CT scan chest/abdomen and pelvis with contrast revealed multiple bilateral lung nodules, possible proximal descending colon mass causing at least partial colon obstruction and also revealed mild ascites and pelvic fluid. General Surgery was consulted and the pt was taken to the OR for Transverse Loop Ostomy. CEA was ordered and was pending at d/c. CT guided bx was done of the pulmonary nodules and the results of this were pending at d/c. Heme Once was consulted as well and the pt will f/u with him for recommendations on palliative treatments (a MedPort was placed in anticipation of this). He has good po intake and good ostomy function. Per a discussion I had with him, he is aware that his diseases is not curable and anything that can be done will be done as palliative and life prolonging treatment. Pt was agreeable to palliative discussion as an outpt. He has f/u with heme/onc and home health care has been set up. Patient Problems: Active and Suspected Problems Colonic mass (Acute) Colonic obstruction (Acute) Bilateral pulmonary metastases (Acute) Descending colon mass (Acute) - Physical Exam Vitals/I&O's: Vital Signs Temp Pulse Resp BP Pulse Ox 97.6 F L 57 L 16 112/66 97 03/05/20 09:00 03/05/20 09:00 03/05/20 09:00 03/05/20 09:00 03/05/20 09:00 Oxygen Flow Rate (L/min) [5] 2 Oxygen Flow Rate (L/min) [4] 2 Oxygen Delivery Method [5] Nasal Cannula Oxygen Delivery Method [4] Nasal Cannula Oxygen Delivery Method [3] Room Air Oxygen Delivery Method [2] Room Air Oxygen Delivery Method [1 ( Room Air Initial Baseline)] Oxygen Delivery Method Room Air Weight: 65.589 kg Body Mass Index (BMI) 19.1 Intake and Output for Last 24 Hours 03/03/20 03/04/20 03/05/20 23:59 23:59 23:59 Intake Total 2885.00 / 2885.00 2085.00 / 2285.00 999.17 / 999.17 Output Total 2700 / 2700 4125 / 5375 3200 / 3200 Balance 185.00 / 185.00 -2040.00 / -3090.00 -2200.83 / -2200.83 Laboratory Results 03/04/20 18:05: PT 14.1, INR 1.1, APTT 33.4 03/05/20 05:02: WBC 8.9, RBC 4.09 L, Hgb 11.2 L, Hct 35.3 L, MCV 86.3, MCH 27.4, MCHC 31.7 L, RDW Std Deviation 45.0 H, RDW Coeff of Cherry 14.3, Plt Count 498 H, MPV 8.4, Immature Gran % (Auto) 0.200, Neut % (Auto) 69.6, Lymph % (Auto) 13.0 L, Hendry % (Auto) 10.3 H, Eos % (Auto) 6.2 H, Baso % (Auto) 0.7, Absolute Neuts (auto) 6.2, Absolute Lymphs (auto) 1.15, Nucleated RBC % 0 03/05/20 05:02: Sodium 137, Potassium 3.5, Chloride 103, Carbon Dioxide 26.0, Anion Gap 8, BUN 12, Creatinine 0.64 L, Estim Creat Clear Calc 109.60, Est GFR (MDRD) Af Amer 162, Est GFR (MDRD) Non-Af 134, BUN/Creatinine Ratio 18.8, Glucose 90, Calcium 8.4 L 03/05/20 05:02: Carcinoembryonic Ag Pending Current Medications Acetaminophen (Tylenol) 650 mg PO Q6H PRN PRN PRN Reason: Pain Score 1-10/Temp > 100.7 F Enoxaparin Sodium (Lovenox) 40 mg SC DAILY [facility] Last Admin: 03/05/20 09:00 Dose: 40 mg Documented by: Sodium Chloride () 1,000 mls @ 50 mls/hr IV .Q20H [facility] Last Infusion: 03/05/20 09:21 Dose: 50 mls/hr Documented by: Pantoprazole Sodium 40 mg/ (Sodium Chloride) 110 mls @ 330 mls/hr IV Q12 [facility] Last Infusion: 03/05/20 09:21 Dose: Infused Documented by: Cefazolin Sodium 2 gm/ Sodium (Chloride) 110 mls @ 150 mls/hr IV X1 ONE Stop: 03/05/20 11:43 Last Infusion: 03/05/20 07:22 Dose: Infused Documented by: Morphine Sulfate () 2 - 4 mg IV Q1H PRN PRN PRN Reason: Pain Score 1-10/10 Morphine Sulfate () 2 - 4 mg IV Q1H PRN PRN PRN Reason: Pain Score 1-10/10 Nutritional Formula (Lactose Free) (Ensure Clear) 120 ml PO 4X/DAY [facility] Last Admin: 03/05/20 09:00 Dose: 120 ml Documented by: Ondansetron HCl (Zofran) 4 mg IV Q8H PRN PRN PRN Reason: NAUSEA/VOMITING Oxycodone HCl (Oxyir) 5 mg PO Q4H PRN PRN PRN Reason: Pain Score 4-5/10 Sodium Chloride () 10 - 40 ml IV UD PRN PRN Reason: SALINE FLUSH Last Admin: 03/04/20 13:29 Dose: 10 ml Documented by: Zolpidem Tartrate (Ambien (Generic)) 5 mg PO QHS PRN PRN PRN Reason: INSOMNIA Discharge Diet: Light diet - advance as tolerated - if you have questions about your diet instructions, please talk to you doctor. Discharge Activity: May Not Drive - for 1 week or while taking narcotic pain medicine., May Shower May shower in (days): 0 May resume sexual activity in: No Restrictions Call your doctor if your incision/area has: Continuous Slow Oozing, Sudden Increased Bleeding, Increased Pain/ Swelling, Increased Redness, Foul Smelling Discharge Call your doctor if you observe: Fever of 101 or Higher Suture Line Care: Avoid Pulling/Pushing, Avoid Pinching/Bending Cleanse incision/area with: Do not get Incision Wet Home Medications: Medications to take at Discharge Omeprazole [Prilosec] 20 mg PO BID 03/02/20 Ensure Clear 120 ml PO 4X/DAY #120 liquid 03/05/20 Hydrocodone Bitart/Apap 5-325 [[place] 5MG-325MG] 1 tab PO Q6H PRN PRN 3 Days #10 tab 03/05/20 Iron,Carbonyl [Iron Chews] 15 mg PO BID #60 tab.chew 03/05/20 Following Prescriptions Were Given to Patient: Ensure Clear 120 ml PO 4X/DAY #120 liquid Transmission Status: Pending to [address] Iron,Carbonyl [Iron Chews] 15 mg PO BID #60 tab.chew Transmission Status: Pending to [address] Hydrocodone Bitart/Apap 5-325 [[place] 5MG-325MG] 1 tab PO Q6H PRN PRN 3 Days #10 tab PRN Reason: Pain Transmission Status: Received by [address] Primary Care Physician: Jose Roberto Bueno, COMBAT SYSTEMS OPERATOR-C [Primary Care Provider] - Please Follow Up With: Samir Marshall MD - [phone] When: Call for Appt on please Please Follow Up With: Shantell Pastor MD When: as directed Patient Instructions: Discharge Instructions Needle Biopsy: Lung Medical Necessity - Tobacco Use Smoking Status: Former smoker Tobacco Use: Cigars Meaningful Use Info Meaningful Use Diagnoses (Choose all that apply): None applicable Inpatient E&M: 24770 Disch Hosp
--- NOTE | 2020-03-05 11:41 | CASEMGMT ---
Social Work Note SW updated by physician that pt is agreeable to Palliative Care referral. SW in to speak with pt. SW introduced self and role at [facility]. Pt is alert and orientated x3, confirms he is agreeable to Palliative Care Referral. SW explained that this worker will make referral and then Palliative will likely follow up with pt once he is discharged from [facility] today. Pt states understanding. SW placed a call to [facility] and spoke with Darline in admissions and provided referral. SW faxed referral. Carissa Barrera DIRECTOR OF LABORATORY OPERATIONS, [employer]ING [employer]PER
--- NOTE | 2020-03-05 12:50 | PHA.DC.MC ---
Pharmacy Service has performed discharge medication reconciliation and counseling for this patient. 1. HYDROCODONE/ACETAMINOPHEN 5/325MG PO Q6H PRN PAIN X 3 DAYS The patient's discharge medication list was reviewed for discrepancies and discrepancies were resolved. Home Medications Omeprazole [Prilosec] 20 mg PO BID 03/02/20 Ensure Clear 120 ml PO 4X/DAY #120 liquid 03/05/20 Hydrocodone Bitart/Apap 5-325 [[place] 5MG-325MG] 1 tab PO Q6H PRN PRN 3 Days #10 tab 03/05/20 Iron,Carbonyl [Iron Chews] 15 mg PO BID #60 tab.chew 03/05/20 The patient was counseled on the following discharge medications and changes in medications for homegoing were reviewed. The Reason for Use, instructions for use, and potential side effects were reviewed for all new medications. The patient's questions regarding all of their medications were answered. The patient was able to verbally demonstrate an understanding of their discharge medications. Patient counseled by student services advisorAbhinav.
[2020-03-06 08:18] LABS: Carcinoembryonic Antigen 14.9 ng/mL (0.0-4.7)
== END 2020-03-05 12:50 | disposition home or self-care (01) | DRG 329 ==
LOC: ED 10:35 → MS3 03-04 07:19
PROVIDERS: Anesthesiology; Internal Medicine Hematology & Oncology; Surgery; Admitting Provider Hospitalist; Emergency Provider Student in an Organized Health Care Education/Training Program; PCP Nurse Practitioner Family; Visit Provider Internal Medicine
PROC: 0D1L0Z4 Bypass Transverse Colon to Cutaneous, Open Approach (ICD-10-PCS; CPT 44320; principal; 2020-03-02 16:45)
DX: K63.89 Other specified diseases of intestine (principal); E43 Unspecified severe protein-calorie malnutrition; C78.02 Secondary malignant neoplasm of left lung; Z68.1 Body mass index [BMI] 19.9 or less, adult; C78.01 Secondary malignant neoplasm of right lung; D69.6 Thrombocytopenia, unspecified; D50.0 Iron deficiency anemia secondary to blood loss (chronic); N40.0 Benign prostatic hyperplasia without lower urinary tract symptoms; K25.9 Gastric ulcer, unspecified as acute or chronic, without hemorrhage or perforation; Z90.5 Acquired absence of kidney; Z85.828 Personal history of other malignant neoplasm of skin; F17.290 Nicotine dependence, other tobacco product, uncomplicated; Z66 Do not resuscitate; K56.600 Partial intestinal obstruction, unspecified as to cause
CPT/HCPCS: 36415; 71045; 71046; 71250; 74018; 74019; 74177; 77001; 77012; 80048; 80053; 81001; 82378; 82728; 83540; 83550; 83690; 85025; 85610; 85730; 88172; 88305; 88313; 88341; 88342; 93005; 97802; 99155; 99156; 99157; 99251; 99285; J1756; J7030; J7040; J7050; Q9967; A4216; G0463; J2405

== ENCOUNTER 2020-03-14 09:16 | Day surgery (SDC) | payer OTHER, SELFPAY ==
[2020-03-05 05:49] VITALS: BMI 19.1
[2020-03-14] VITALS (8 sets, daily range): BP systolic 95–125; BP diastolic 60–79; PULSE 65–73; RESP 16; TEMP 35.9–36.6; O2SAT 97–100; BMI 18.5
--- NOTE | 2020-03-14 | IMM_PTH ---
PATIENT: AMADA SMITH LOC: EN U#:[id number] AGE/SX: 64/M ROOM: RE03/14/[address]: Dr. Samir Marshall MD : [id number] BED: DIS: 03/14/2020 SPEC #: [id number] RECD: 03/15/20 11:23 STATUS: ANABELA REQ #: [id number] JIMY: 03/14/20 00:[address]: Samir Marshall DEPT: IMMUNOHISTOCHEMISTRY RECD BY: Amanda Summers ENTERED: 03/15/20 11:25 SP TYPE: IMMUNO OTHR DR: Jose Roberto Bueno, SHOCK ABSORBER INSTALLER-C Tissues: Descending colon Procedures: MSH2 (add) MLH-1 (add) MSH6 (add) Anti-PMS2 (add) CHA-2 (initial) KI-67 (add) P53 (add) PHYSICIAN & INSTITUTION [place] [id number] SPECIMEN INFORMATION: Tissue Source: Descending colon mass biopsy Clinical Info: Colonic obstruction Specimen Number: [id number] CPT code: 85899, 08457 x6 METHODOLOGY: Deparaffinized sections of prefer/formalin-fixed tissue or PAP/DQ stained slides are incubated with monoclonal/polyclonal antibodies/oligonucleotide probes. Localization is made via biotin free immunoperoxidase method. Appropriate controls are performed and reacted as expected. Results on target cell population are indicated in the following table: RESULTS: ANTIBODY / CLONE RESULT Ki-67 (30-9) positive, high P53 (DO-7) positive CHA-2 (SP21) positive MLH-1 (M1) positive MSH2 (25D12) positive MSH6 (44) positive PMS2 ([id number]) positive These tests were developed and their performance characteristics determined by [facility]. They may not have been cleared or approved by the U.S. Food and Drug Administration. The FDA has determined that such clearance or approval is not necessary. The above immunohistochemical/dualISH markers are ordered and reviewed by the Pathologist. INTERPRETATION: Descending colon mass biopsy: Invasive adenocarcinoma. Result of Microsatellite Instability Study: Negative (no loss of mismatch protein; no microsatellite instability detected). SJ:da 03/18/20
[2020-03-14] MEDS: Lactated Ringers 1,000 ML 100 ML IV (09:47)
--- NOTE | 2020-03-14 10:24 | PCM.HP.STD ---
Problem List (1) Colonic obstruction Status: Acute History of Present Illness Date of Admission: 03/14/20 The patient is a 64 year old M who presents today for flexible sigmoidoscopy in an attempt to obtain tissue diagnosis from a suspected descending colon obstructing colon mass. Details: 64-year-old gentleman. He was hospitalized with nausea vomiting abdominal distention on March 02, 2020 was found to have a descending colon large bowel obstruction. On that Wednesday evening he was taken to surgery underwent a diverting loop colostomy in the distal transverse colon. On March 05 I placed a right internal jugular port for him. Imaging has demonstrated multiple large pulmonary metastasis. He has been seen by Dr. Pastor and palliative management is planned. The patient presents today for inspection of his loop colostomy with plans for stomal bar removal. He has not had a colonoscopy and there is been no definitive imaging of the descending colon other than a CT scan demonstrating the suggestion of a mass in that area and findings consistent with colonic obstruction dramatically improved after the loop transverse colostomy. A CT scan guided lung biopsy has been performed. Pathology was not definitive. The patient was referred back by Dr Pastor requesting a colonoscopy for better tissue diagnosis. Patient has a distal transverse colon loop colostomy. The lesion on CT imaging is felt to be in the proximal descending colon close to the splenic flexure. 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) D50.0 Anemia (Chronic) D64.9 Colonic obstruction (Acute) K56.609 Bilateral pulmonary metastases (Acute) C78.01, C78.02 Descending colon mass (Acute) Benign prostatic hyperplasia (Chronic) N40.0 Allergies adhesive tape Adverse Reaction (Verified 03/14/20 09:26) Rash Home Medications: Ambulatory Orders Medication Instructions Recorded Omeprazole [Prilosec] 20 mg PO BID 03/02/20 Ensure Clear 120 ml PO 4X/DAY #120 liquid 03/05/20 Iron,Carbonyl [Iron Chews] 15 mg PO BID #60 tab.chew 03/05/20 Surgical History: Surgical History (Last Updated 03/07/20 @ 09:31 by Paola Ferreira) Status post left partial nephrectomy (Chronic) History of colostomy History of lung biopsy Z98.890 history of port insertion Surgical History: TURP, - - Partial left nephrectomy. Psychiatric History: No pertinent psych hx Smoking Status: Former smoker - *Family History Maternal History Items: No pertinent history, - Paternal History Items: No pertinent history Review of Systems Constitutional: Denies: Fever HEENT: Denies: Difficulty Swallowing Cardiovascular: Denies: Chest Pain Respiratory: Denies: Cough Gastrointestinal: Denies: Abdominal Pain VTE Information - Inpt Only VTE Present on Admission: No - Physical Exam Vitals/I&O's: Vital Signs Temp Pulse Resp BP Pulse Ox 97.7 F L 65 16 107/72 100 03/14/20 09:34 03/14/20 09:34 03/14/20 09:34 03/14/20 09:34 03/14/20 09:34 Oxygen Delivery Method Room Air Weight: 140 lb 6.951 oz Body Mass Index (BMI) 18.5 General: Alert Oral: Moist Mucosa Lungs: - - Clear, increased anterior posterior diameter Cardiovascular: Regular rate, Regular Rhythm Abdomen: Soft, - - Healthy loop colostomy left upper quadrant Psych/Mental Status: Normal Affect Current Medications Lactated Ringer's () 1,000 mls @ 100 mls/hr IV .Q10H BLAISE Last Admin: 03/14/20 09:47 Dose: 100 mls/hr Documented by: Assessment/Plan All Active Problems (Last Updated 03/07/20 @ 09:29 by Paola Ferreira) Colonic obstruction (Acute) Bilateral pulmonary metastases (Acute) Descending colon mass (Acute) Recommend to the patient attempt at a flexible sigmoidoscopy with hopeful tissue sampling of the suspected descending colon mass. He is aware of the technique, benefit, risk, alternatives. We will proceed as noted to try to assist oncology with his management. Samir Marshall M.D., F.A.C.S. Procedure Criteria Procedure Type: Elective COVID Risk Discussion: The surgeon/proceduralist and patient have discussed in detail the risk of exposure to and/or potential harm posed by the COVID-19 virus with having a surgery/procedure at this time versus the risk of delaying the surgery/procedure. It is not possible to know either the risk of delaying the surgery or procedure or chance of getting an infection with perfect accuracy, but a joint decision was made between the patient and the surgeon/proceduralist to proceed at this time with the scheduled surgery/procedure as indicated on the consent form.
--- NOTE | 2020-03-14 10:30 | COLBX_PTH ---
PATIENT: AMADA SMITH LOC: EN U#:[id number] AGE/SX: 64/M ROOM: RE03/14/[address]: Dr. Samir Marshall MD : 1955 BED: DIS: 03/14/2020 SPEC #: [id number] RECD: 03/14/20 11:11 STATUS: ANABELA CAROLYN #: [id number] JIMY: 03/14/20 10:[address]: Samir Marshall DEPT: SURGICAL PATHOLOGY RECD BY: Maite Alicea ENTERED: 03/14/20 11:26 SP TYPE: COLON BX OTHR DR: Jose Roberto Bueno, DIPPER MACHINE OPERATOR-C Tissues: Descending colon Procedures: Surgery Specimen Level IV HEADER OPERATION: Flexible sigmoidoscopy (MOD) PRE-OP DIAGNOSIS: Colonic obstruction TISSUE SUBMITTED: Descending colon mass biopsy MICROSCOPIC DIAGNOSIS Descending colon mass, biopsy: Well to moderately differentiated invasive adenocarcinoma. See comment. VICKY:da 03/15/20 COMMENT Microsatellite instability studies are being performed ([id number]) and results will be reported separately. Molecular studies on the tumor are being performed and results will be reported as an addendum. Please make reference to previous specimen ([id number]) left mid lung mass, CT-guided core biopsy with diagnosis of metastatic non-small cell carcinoma, favor adenocarcinoma, consistent with colonic primarily. MICROSCOPIC DESCRIPTION Slides are reviewed. GROSS DESCRIPTION Received in fixative is one container labeled with the patient's name and designated descending colon mass biopsy. The specimen consists of multiple irregular fragments of light valerio soft tissue that in aggregate measure 1.5 x 0.5 x 0.1 cm. The specimen is totally submitted in one cassette. / VICKY:da 03/14/20 TC:0 CPT: 99830 ADDENDUM ADDENDUM ADDENDUM ADDENDUM ADDENDUM ADDENDUM ADDENDUM ADDENDUM ADDENDUM ADDENDUM ADDENDUM 03/27/2020 11:27 ADDENDUM 03/27/2020 11:27 ADDENDUM 03/27/2020 11:27 ADDENDUM 03/27/2020 11:27 ADDENDUM 03/27/2020 11:27 [facility] NGS SEQUENCING REPORT FROM [employer] ([employer] RESULT SUMMARY: Abnormal PERTINENT NEGATIVE RESULTS: The following genes are NEGATIVE for clinically relevant mutations. Mutational hotspots and surrounding exonic regions were interrogated for DNA level point mutations and indels (fusions not assayed). NRAS (exons 2, 3, 4) Please see complete report in e-chart or EMR
--- NOTE | 2020-03-14 11:01 | OP.FLEXSIG_ITS ---
Patient Name: Hong Carballo Procedure Date: 03/14/2020 9:52 AM Date of : 1955 Age: 64 Procedure: Flexible Sigmoidoscopy Indications: Colonic obstruction Providers: Samir Marshall MD Referring MD: Jose Roberto Bueno Medicines: Midazolam 2 mg IV, Meperidine 50 mg IV Patient Profile: Last Colonoscopy: none. The patient's first colonoscopy is today. Complications: No immediate complications. Procedure: Pre-Anesthesia Assessment: - Prior to the procedure, a History and Physical was performed, and patient medications and allergies were reviewed. The patient's tolerance of previous anesthesia was also reviewed. The risks and benefits of the procedure and the sedation options and risks were discussed with the patient. All questions were answered, and informed consent was obtained. Prior Anticoagulants: The patient has taken no previous anticoagulant or antiplatelet agents. ASA Grade Assessment: III - A patient with severe systemic disease. After reviewing the risks and benefits, the patient was deemed in satisfactory condition to undergo the procedure. After obtaining informed consent, the endoscope was passed under direct vision. Throughout the procedure, the patient's blood pressure, pulse, and oxygen saturations were monitored continuously. The colonoscope was introduced through the anus and advanced to the descending colon. The flexible sigmoidoscopy was accomplished without difficulty. The patient tolerated the procedure well. The quality of the bowel preparation was adequate to identify polyps. Moderate Sedation: Moderate (conscious) sedation was personally administered by the endoscopist. The following parameters were monitored: oxygen saturation, heart rate, blood pressure, and response to care. Total physician intraservice time was 15 minutes. Scope In: 10:40:13 AM Scope Out: 10:48:58 AM Total Procedure Duration Time 0 hours 8 minutes 45 seconds Findings: The digital rectal exam findings include anal stricture. Pertinent negatives include normal prostate (size, shape, and consistency). A fungating completely obstructing large mass was found in the proximal descending colon. The mass was circumferential. Oozing was present. This was biopsied with a cold forceps for histology. Multiple diverticula were found in the sigmoid colon. External internal hemorrhoids were found. The hemorrhoids were Grade II (internal hemorrhoids that prolapse but reduce spontaneously). Impression: - Anal stricture found on digital rectal exam. - Malignant completely obstructing tumor in the proximal descending colon. Biopsied. - Diverticulosis in the sigmoid colon. - External internal hemorrhoids. Recommendation: - Use fiber, for example Citrucel, Fibercon, Konsyl or Metamucil. Procedure Code(s): --- Professional --- 91699, Sigmoidoscopy, flexible; with biopsy, single or multiple 48116, Moderate sedation services provided by the same physician or other qualified health childcare administrator performing the diagnostic or therapeutic service that the sedation supports, requiring the presence of an independent trained observer to assist in the monitoring of the patient's level of consciousness and physiological status; initial 15 minutes of intraservice time, patient age 5 years or older Diagnosis Code(s): --- Professional --- K62.4, Stenosis of anus and rectum C18.6, Malignant neoplasm of descending colon K56.691, Other complete intestinal obstruction K64.1, Second degree hemorrhoids K64.4, Residual hemorrhoidal skin tags K56.609, Unspecified intestinal obstruction, unspecified as to partial versus complete obstruction K57.30, Diverticulosis of large intestine without perforation or abscess without bleeding CPT copyright 2017 [employer]. All rights reserved. The codes documented in this report are preliminary and upon repair service dispatcher review may be revised to meet current compliance requirements. Samir Marshall MD 03/14/2020 11:00:47 AM This report has been signed electronically. Number of Addenda: 0 Note Initiated On: 03/14/2020 9:52 AM
--- NOTE | 2020-03-14 11:01 | OP.CCLET_ITS ---
03/14/2020 Jose Roberto Bueno Re : Flexible Sigmoidoscopy procedure for Hong Crystalr Myles This procedure was performed on February. My impressions and recommendations are as follows: Impressions : - Anal stricture found on digital rectal exam. - Malignant completely obstructing tumor in the proximal descending colon. Biopsied. - Diverticulosis in the sigmoid colon. - External internal hemorrhoids. Recommendations : - Use fiber, for example Citrucel, Fibercon, Konsyl or Metamucil. My findings are described in the full procedure note, which is enclosed. If I can be of further assistance, please feel free to contact me at Doctor phone number(s): Work: . Sincerely, Samir Marshall MD 03/14/2020 11:00:47 AM This report has been signed electronically.
== END 2020-03-14 11:54 | disposition home or self-care (01) ==
LOC: EN 09:17 → AC 09:18
PROVIDERS: PCP Nurse Practitioner Family; Referring Provider Nurse Practitioner Family; Visit Provider Surgery
PROC: 0DJD8ZZ Inspection of Lower Intestinal Tract, Via Natural or Artificial Opening Endoscopic (ICD-10-PCS; CPT 45330; principal; 2020-03-14 10:25)
DX: K62.4 Stenosis of anus and rectum (principal); K57.30 Diverticulosis of large intestine without perforation or abscess without bleeding; K64.1 Second degree hemorrhoids; K64.4 Residual hemorrhoidal skin tags; C18.6 Malignant neoplasm of descending colon; C78.02 Secondary malignant neoplasm of left lung; C78.01 Secondary malignant neoplasm of right lung; Z93.3 Colostomy status; Z11.59 Encounter for screening for other viral diseases; N40.0 Benign prostatic hyperplasia without lower urinary tract symptoms; D64.9 Anemia, unspecified; Z87.891 Personal history of nicotine dependence
CPT/HCPCS: 45331; 87635; 88305; 88341; 88342; 94799; 99152; 99153; J7120; U0003

== ENCOUNTER → 2020-06-24 07:49 | Outpatient (CLI) | payer OTHER, SELFPAY ==
[2020-06-04 09:02] VITALS: BMI 20.9
--- NOTE | 2020-06-24 07:50 | CT_ITS ---
STUDY: CT CHEST WITH CONTRAST REASON FOR EXAM: Male, 65 years old. COLON CANCER, HX TURP, PARTIAL LEFT NEPHRECTOMY, COLOSTOMY RADIATION DOSAGE (If Supplied By Facility): CTDIvol = ( 10.83 ) mGy, DLP = ( 772.28 ) mGycm TECHNIQUE: Transaxial imaging was performed following intravenous administration of IV 100mL Isovue-370. Multiplanar coronal and sagittal images were reformatted. Individualized dose optimization techniques were used for this CT. COMPARISON: Comparison is made with prior examination dated 03/03/2020. FINDINGS: A right-sided portacatheter is seen with the tip in the superior vena cava. Once again, there are multiple large pulmonary nodules in both lungs. All the nodules have decreased in size as compared to prior study. No new nodule is seen. The dominant nodule in the left lower lobe has become heterogeneous in appearance as well as nodules in the lateral aspect of the left lower lobe anteriorly as well as the right upper lobe nodule have become heterogeneous. There is no demonstrated pleural abnormality. Normal heart and pericardium. Normal mediastinum. Normal hilar regions. Normal enhanced pulmonary arteries. Normal aorta arch and descending thoracic aorta. There are degenerative changes of the thoracic spine. Fatty infiltration of the liver. Stable 1 cm cyst in the lateral aspect of the right lobe of the liver. CT/Chest WITH Contrast IMPRESSION: Interval decrease in size of the multiple large bilateral pulmonary nodules. No new nodule is seen. Electronically Signed: Leroy Swanson, at 11:19 EST , Service support ,
--- NOTE | 2020-06-24 07:50 | CT_ITS ---
STUDY: CT ABDOMEN AND PELVIS WITH CONTRAST REASON FOR EXAM: Male, 65 years old. COLON CANCER, HX TURP, PARTIAL LEFT NEPHRECTOMY, COLOSTOMY RADIATION DOSAGE (If Supplied By Facility): CTDIvol = ( 10.83 ) mGy, DLP = ( 772.28 ) mGycm TECHNIQUE: Transaxial images were obtained from the dome of the diaphragm to the symphysis pubis without oral contrast. IV 100mL Isovue-370 was administered. Sagittal and coronal images were reconstructed. Individualized dose optimization techniques were used for this CT. COMPARISON: Comparison is made with prior study dated 03/02/2020. FINDINGS: Multiple large pulmonary nodules are seen at the lung bases. The previously seen nodular densities at the lung bases have all decreased in size as compared to prior study. The visualized portions of the heart are within normal limits. Stable 1 cm cyst in the lateral aspect of the right lobe of the liver. Normal gallbladder and extrahepatic biliary system. Normal spleen. Normal pancreas. Normal bilateral adrenal glands. Normal right kidney. Stable moderate degree of left hydronephrosis. Findings suggestive of a left ureteropelvic junction obstruction. Normal visualized stomach. Normal small intestine. A colostomy is seen in the left anterior mid abdomen. This was not present on prior study. The appendix is visualized and appears normal. Normal abdominal aorta. Normal inferior vena cava. Normal retroperitoneum. Normal urinary bladder. There is enlargement of the prostate gland. It measures 4.8 cm x 4 cm. There is evidence of prior TURP as well as prior central prostatic calcifications. Normal abdominal wall. There are mild degenerative changes of the visualized lumbar spine. CT/Abdomen/Pelvis W IV Cont ONLY IMPRESSION: Interval decrease in size of the pulmonary metastatic nodules. Status post colostomy in the anterior left mid abdomen. Stable left hydronephrosis. Prostatic enlargement with central calcifications. Electronically Signed: Leroy Swanson, at 11:13 EST , Service support ,
[2020-06-24] MEDS: 0.9% Saline Lock 10 ML Syringe IV (08:19)
== END ==
PROVIDERS: PCP Nurse Practitioner Family; Referring Provider Internal Medicine Hematology & Oncology; Visit Provider Internal Medicine Hematology & Oncology
DX: C78.01 Secondary malignant neoplasm of right lung (principal); C78.02 Secondary malignant neoplasm of left lung; C18.6 Malignant neoplasm of descending colon
CPT/HCPCS: 71260; 74177; Q9967; A4216

== ENCOUNTER → 2020-09-26 07:55 | Outpatient (CLI) | payer OTHER, SELFPAY ==
[2020-09-10 10:15] VITALS: BMI 20.7
[2020-09-24 08:51] VITALS: BMI 20.5
--- NOTE | 2020-09-26 08:00 | CT_ITS ---
STUDY: CT CHEST, ABDOMEN T PELVIS WITH CONTRAST REASON FOR EXAM: Male, 65 years old. COLON CANCER RISING MARKERS RADIATION DOSAGE (If Supplied By Facility): CTDIvol = ( 9.24 ) mGy, DLP = ( 558.93 ) mGycm TECHNIQUE: Transaxial imaging was performed following intravenous administration of IV 100mL Isovue-300. Individualized dose optimization techniques were used for this CT. COMPARISON: Comparison is made with prior study dated 06/24/2020. FINDINGS: CHEST A right-sided portacatheter is seen with the tip in the superior vena cava. Stable multiple bilateral pulmonary nodules scattered in both lungs worse in the lower lobes. There is no demonstrated pleural abnormality. There are calcifications of the coronary arteries. Normal mediastinum. Normal hilar regions. Normal unenhanced pulmonary arteries. Normal aorta arch and descending thoracic aorta. Normal osseous structures. Moderate degree of left hydronephrosis. This has progressed as compared to prior study. ABDOMEN Multiple bilateral pulmonary nodules. These are unchanged. Coronary artery calcification. Stable 1 cm cyst in the lateral aspect of the right lobe of the liver. Normal gallbladder and extrahepatic biliary system. There is mild splenomegaly. Normal pancreas. Normal bilateral adrenal glands. Normal right kidney. Marked degree of left hydronephrosis. This has progressed. This extends into the ureteropelvic junction. Normal visualized stomach. Normal small intestine. A colostomy is seen in the left anterior abdominal wall. The appendix is visualized and appears normal. There is scattered atherosclerotic calcification of the abdominal aorta, without a demonstrated aneurysm. Normal inferior vena cava. Normal retroperitoneum. Normal abdominal wall. Normal osseous structures. PELVIS Normal urinary bladder. There is evidence of prior TURP. Prostatic calcification. The prostate is enlarged measuring 4.8 signs by 4 sinus. Normal visualized small intestine. Colostomy seen in the anterior left abdominal wall. There is no pelvic fluid. There is no pelvic lymphadenopathy or mass lesion. Normal visualized pelvic arteries. Normal abdominal wall. There are mild degenerative changes of the visualized lumbar spine. CT/CT Chest, Abd, Pel w/Contrast IMPRESSION: Stable multiple bilateral pulmonary nodules. Colostomy is seen in the anterior left mid abdominal wall. Since prior study, there has been progression of the left hydronephrosis to the level of the ureteropelvic junction. Electronically Signed: Leroy Swanson MD at 9:14 EST , Service support ,
[2020-09-26] MEDS: 0.9% Saline Lock 10 ML Syringe IV (08:20)
== END ==
PROVIDERS: PCP Nurse Practitioner Family; Visit Provider Internal Medicine Hematology & Oncology
DX: C18.9 Malignant neoplasm of colon, unspecified (principal); C78.00 Secondary malignant neoplasm of unspecified lung; C78.01 Secondary malignant neoplasm of right lung; C78.02 Secondary malignant neoplasm of left lung
CPT/HCPCS: 71260; 74177; Q9967; A4216

== ENCOUNTER → 2020-12-25 10:00 | Outpatient (CLI) | payer OTHER, SELFPAY ==
[2020-12-17 08:57] VITALS: BMI 20.2
--- NOTE | 2020-12-25 10:01 | NM_ITS ---
CLINICAL: 65-year-old male with reported history of colorectal carcinoma. WHOLE BODY 99m Tc MDP RADIONUCLIDE BONE SCINTIGRAPHY COMPARISON: None available FINDINGS: Following the intravenous administration of 25.3 mCi of 99m Tc MDP, whole body bone images reveal: 1. Increased radiopharmaceutical concentration is defined in the acromioclavicular and sternoclavicular compartments of both shoulders, patellofemoral compartments of the bilateral knees, the right and left elbow articulations. 2. The remaining skeletal structures are scintigraphically unremarkable with the bilateral renal images and urinary bladder activity identified. The left kidney demonstrates a markedly prominent collecting system extending from the superior to inferior pole calyces and left renal pelvis. NM/Bone Scan Whole Body IMPRESSION: 1. The increase in radiopharmaceutical concentration identified in the bilateral shoulders, right and left knees, elbows bilaterally is most consistent with degenerative arthritis. 2. There is no definitive scintigraphic evidence of diffuse axial skeletal metastatic disease on the current examination. Electronically Signed: Jose Roberto Foster DO at 21:31 EDT Tel , Service support ,
== END ==
PROVIDERS: PCP Nurse Practitioner Family; Referring Provider Internal Medicine Hematology & Oncology; Visit Provider Internal Medicine Hematology & Oncology
DX: C18.6 Malignant neoplasm of descending colon (principal); C18.9 Malignant neoplasm of colon, unspecified; C78.00 Secondary malignant neoplasm of unspecified lung; N13.8 Other obstructive and reflux uropathy
CPT/HCPCS: 78306; A9503

== ENCOUNTER → 2020-12-27 14:58 | Outpatient (CLI) | payer OTHER, SELFPAY ==
[2020-12-17 08:57] VITALS: BMI 20.2
--- NOTE | 2020-12-27 14:59 | CT_ITS ---
ACR Level 3 findings have been noted. An addendum which confirms receipt of the report will follow. INDICATION: METASTATIC COLON CANCER WITH RISING MARKERS EXAMINATION: CT Chest Abdomen And Pelvis W/ Contrast Injection TECHNIQUE: Images were obtained of the chest, abdomen and pelvis following IV contrast. A radiation dose optimization technique was used for this scan. IV Contrast dosage and agent: Oral and amp; IV Readi-CAT and amp; 100mL Isovue-300 COMPARISON: 09/26/2020. FINDINGS: Lungs: Multiple bilateral metastatic lesions are again seen. Some of these have increased in size, while some of decrease in size and yet others are stable in size. For example there is a left upper lobe mass that has increased in size measuring 5.8 x 4.4 cm, previously 5.1 x 3.6 cm (image 69, series 6). There is a left lower lobe mass which has decreased in size measuring 4.1 x 3.4 cm, previously 4.4 x 3.6 cm (image 66, series 6). No new metastatic lesions. Mediastinum: The cardiomediastinal silhouette is not enlarged. No mediastinal, hilar or axillary adenopathy. Mild aortic arch and coronary artery calcifications. No obvious filling defect seen within the visualized pulmonary arteries. Right-sided chest port with tip at the RA/SVC junction. Pleura: Unremarkable Liver: Stable 9 mm hypodensity in the right lobe. Gallbladder: Contracted. Spleen: Unremarkable Pancreas: Unremarkable Adrenal Glands: Unremarkable Kidneys: Interval progression of left UPJ obstruction with now severe left hydronephrosis. Vasculature: Moderate aortoiliac atherosclerotic disease. GI Tract: Left upper abdominal quadrant colostomy is present. There is redemonstration of asymmetric wall thickening of the mid descending colon (image 53, series 3) which is difficult to measure. This is closely apposed to a short segment of proximal small bowel (coronal image 50). Lymphadenopathy: None Peritoneum: No ascites. Bladder: Unremarkable Reproductive organs: There is evidence of prior TURP. Prostatic calcification. The prostate is enlarged. Bones/Soft tissues: Mild scattered degenerative changes of the visualized spine. CT/CT Chest, Abd, Pel w/Contrast IMPRESSION: Mixed treatment response with interval decrease, increase and stable sizes of multiple bilateral pulmonary metastatic lesions. No new metastatic lesions. Redemonstration of asymmetric wall thickening of the mid descending colon which is closely apposed to a short segment of proximal small bowel. This is concerning for malignancy. Interval progression of left UPJ obstruction with now severe left hydronephrosis. Electronically Signed: Andi Zelaya MD at 21:40 EDT Tel , Service support ,
[2020-12-27] MEDS: 0.9% Saline Lock 10 ML Syringe IV (15:15)
== END ==
PROVIDERS: PCP Nurse Practitioner Family; Referring Provider Internal Medicine Hematology & Oncology; Visit Provider Internal Medicine Hematology & Oncology
DX: C18.6 Malignant neoplasm of descending colon (principal); C18.9 Malignant neoplasm of colon, unspecified; C78.00 Secondary malignant neoplasm of unspecified lung; N13.8 Other obstructive and reflux uropathy
CPT/HCPCS: 71260; 74177; Q9967; A4216

== ENCOUNTER 2021-03-29 08:07 | Emergency (ER) | payer OTHER, SELFPAY ==
[2021-03-29 08:09] VITALS: BP 105/83; PULSE 106; RESP 16; TEMP 36.8; O2SAT 98; BMI 16.9
--- NOTE | 2021-03-29 08:47 | EDS_ITS ---
HPI History of Present Illness Chief Complaint: Nausea/Vomiting Informant: patient and spouse/S.O. Narrative Narrative: 65-year-old male currently undergoing treatment for adenocarcinoma with metastasis through Dr. Pastor. He states that he recently started a new chemotherapy pill L[place]urf. He states that he took his last dose yesterday and is on a 2-week holiday. He has been unable to keep any p.o. down for the past 18 hours. He notes that he is down about 10 pounds over the past week. No fevers. He states that he was seen last week and received IV fluids. [facility] Medical History Adenocarcinoma of colon Chemotherapy induced neutropenia Chemotherapy management, encounter for CINV (chemotherapy-induced nausea and vomiting) Dermatitis Diarrhea Encounter for education Iron deficiency Malignant neoplasm of colon metastatic to lung Oral candidiasis Pruritus Rectal discharge Stomal prolapse Weight loss Home Medications omeprazole 20 mg PO DAILY 03/02/20 [History Last Taken Unknown] lidocaine-prilocaine 1 applicatio TP DAILY PRN PRN 30 Days #1 tube 03/21/20 [Rx Last Taken Unknown] food supplemt, lactose-reduced 120 ml PO 4X/DAY PRN 04/09/20 [History Last Taken Unknown] ondansetron 8 mg disintegrating tablet 8 mg PO Q8H PRN PRN 10 Days #30 tab.rapdis 01/20/21 [Rx Last Taken Unknown] prochlorperazine maleate 10 mg tablet 10 mg PO Q6H PRN PRN 10 Days #30 tablet 01/20/21 [Rx Last Taken Unknown] hydroxyzine HCl 25 mg tablet 25 mg PO QHS #30 tab 01/29/21 [Rx Last Taken Unknown] hydrocortisone butyrate 0.1 % topical cream 1 applic TOPICAL BID #45 g 03/18/21 [Rx Last Taken Unknown] nystatin 100,000 unit/mL oral suspension 5 ml PO 4X/DAY 10 Days #200 ml 03/18/21 [Rx Last Taken Unknown] Allergy/AdvReac Type Severity Reaction Status Date / Time adhesive tape AdvReac Severe Rash Verified 03/29/21 08:12 Family History Sister No problems noted. Other No pertinent family history Surgical History history left partial nephrectomy History of basal cell carcinoma (BCC) excision Hx of transurethral resection of prostate Hypokalemia due to excessive gastrointestinal loss of potassium Social History Smoking Status: Former smoker Tobacco: How many years used: 40 second hand exposure: No alcohol intake: never substance use type: does not use wesly/shinto: None seatbelt use: always do you feel safe at home: Yes ROS ROS ED Constitutional Constitutional ED: Reports weight loss; Denies chills Eyes Eyes: Denies change in vision or diplopia ENT ENT ED: Denies ear pain, rhinorrhea or sore throat Cardiovascular Cardiovascular: Denies chest pain, orthopnea, palpitations or racing heartbeat Respiratory/Chest Respiratory/Chest: Denies cough, dyspnea or orthopnea Gastrointestinal Gastrointestinal: Reports nausea and vomiting; Denies abdominal pain or diarrhea Genitourinary Genitourinary ED: Denies dysuria, hematuria or urinary frequency Musculoskeletal Musculoskeletal: Denies arthralgias or myalgias Integumentary Denies abscess or rash Neurologic Neurologic: Denies headache(s) or weakness Psychiatric Psychiatric: Denies anxiety, depression, suicidal ideation or suicidal thoughts Endocrine Endocrinology: Denies polydipsia, polyphagia or polyuria Allergic/Immunologic Allergic/Immunologic ED: Denies mouth swelling, tongue swelling or urticaria EXAM Physical Exam Const Vital Signs: 03/29/21 08:09 03/29/21 10:14 03/29/21 10:18 Temperature 98.2 F Temperature Source Temporal Pulse Rate 106 H 70 Respiratory Rate 16 18 Blood Pressure 105/83 H 124/81 H 116/83 H Blood Pressure Mean 90 95 94 Pulse Ox 98 97 Oxygen Delivery Method Room Air Room Air Positive well developed and cachectic General Appearance ED: well developed and cachectic Nutritional Appearance: cachectic HEENT Reports normocephalic, head/scalp atraumatic and moist mucous membranes Eyes PERRL and EOMs intact bilaterally Neck no lymphadenopathy, supple and no JVD Resp normal respiratory effort and clear to auscultation bilaterally Cardio regular rate, regular rhythm and no murmurs Rate: other Other Details: For second capillary refill upper extremity. GI normal to inspection, nondistended, normoactive bowel sounds and non-tender Palpation: soft Back/Spine no CVA tenderness and normal ROM Extremity normal to inspection General Extremety ED: Negative for edema General Extremity: Negative for edema Neuro oriented x3 and CN's II-XII intact bilaterally Sensorium / Orientation: alert Motor Exam: strength 5/5 throughout Psych mental status grossly normal Mood & Affect: Negative for depressed or tearful Skin no rashes or lesions noted and no wounds MDM MDM MDM Narrative Medical decision making narrative: Basic blood work showed hemoglobin 11.3. Normal electrolytes creatinine 0.66 with a BUN of 14. Urinalysis demonstrates small ketones. Patient received 2 L of IV fluids as well as Zofran. He is not orthostatic. He has been able to tolerate some fluids. Patient will be discharged home instructions to follow-up with oncology return if worsening or concerns Lab Data Attestation: I reviewed the patient's lab results. Labs: Laboratory Results - last 24 hr 03/29/21 03/29/21 03/29/21 08:50 08:50 10:00 WBC 6.4 RBC 4.07 L Hgb 11.3 L Hct 34.8 L MCV 85.5 MCH 27.8 MCHC 32.5 RDW Std Deviation 39.8 RDW Coeff of Cherry 12.9 Plt Count 243 MPV 7.9 Immature Gran % (Auto) 0.500 Neut % (Auto) 88.2 H Lymph % (Auto) 6.3 L [place] % (Auto) 4.2 Eos % (Auto) 0.5 Baso % (Auto) 0.3 Absolute Neuts (auto) 5.6 Absolute Lymphs (auto) 0.40 L Nucleated RBC % 0 Sodium 134 L Potassium 3.6 Chloride 100 Carbon Dioxide 26.0 Anion Gap 8 BUN 14 Creatinine 0.66 L Estim Creat Clear Calc 92.86 Est GFR (MDRD) Af Amer 157 Est GFR (MDRD) Non-Af 130 BUN/Creatinine Ratio 21.4 H Glucose 107 H Calcium 9.2 Total Bilirubin 0.90 AST 36 ALT 14 L Alkaline Phosphatase 223 H Total Protein 7.4 Albumin 3.0 L Globulin 4.4 H Albumin/Globulin Ratio 0.7 L Lipase 57 L Urine Color Yellow Urine Clarity Clear Urine pH 6.5 Ur Specific [place] 1.015 Urine Protein 15 H Urine Glucose (UA) Normal Urine Ketones 15 H Urine Occult Blood Negative Urine Nitrite Negative Urine Bilirubin Negative Urine Urobilinogen 1 H Ur Leukocyte Esterase Negative Urine RBC 0 SEEN Urine WBC 0 SEEN Ur Squamous Epith Cells 0 SEEN Urine Bacteria 0 SEEN Urine Mucus 0 SEEN Discharge Plan Triage Chief Complaint: Nausea/Vomiting ED Provider: Royer Fitch Dx/Rx/DC Orders Clinical Impression: CINV (chemotherapy-induced nausea and vomiting) Instructions: ED Vomiting (Adult) Prescriptions: No Action ondansetron 8 mg tablet,disintegrating 8 mg PO Q8H PRN PRN (Reason: Nausea) 10 Days Qty: 30 RF: 3 prochlorperazine maleate 10 mg tablet 10 mg PO Q6H PRN PRN (Reason: Nausea) 10 Days Qty: 30 RF: 2 hydroxyzine HCl 25 mg tablet 25 mg PO QHS Qty: 30 RF: 1 nystatin 100,000 unit/mL suspension 5 ml PO 4X/DAY 10 Days Qty: 200 RF: 1 hydrocortisone butyrate 0.1 % cream 1 applic topical BID Qty: 45 RF: 0 omeprazole 20 MG capsule 20 mg PO DAILY RF: 0 lidocaine-prilocaine 30 GM cream 1 applicatio TP DAILY PRN PRN (Reason: Not Specified) 30 Days Qty: 1 RF: 2 food supplemt, lactose-reduced 120 ML liquid 120 ml PO 4X/DAY PRN (Reason: Not Specified) RF: 0 Primary Care Provider: Jose Roberto Bueno NP Referrals: Shantell Pastor MD [STAFF PHYSICIAN] - Keep Renetta appointment Jose Roberto Bueno NP, [employer] [Primary Care Provider] - As Needed Disposition Disposition: Home, Self Care
[2021-03-29 08:57] LABS: Absolute Neutrophil Count 5.6 X10^3/uL (2.0-7.7); Basophil# 0.02 X10^3/uL; Basophil% 0.3 % (0-1); Eosinophil# 0.03 X10^3/uL; Eosinophils% 0.5 % (0-5); Hematocrit 34.8 % (40-54); Hemoglobin 11.3 g/dL (13.0-16.5); Lymphocyte % 6.3 % (19-41); Mean Corp Hgb Conc 32.5 g/dL (32-36); Mean Corpuscular Hgb 27.8 pg (27.0-32.0); Mean Corpuscular Volume 85.5 fL (80-94); Mean Platelet Vol. 7.9 fl (6.2-12.0); Monocyte# 0.27 X10^3/uL; Monocyte% 4.2 % (0-10); NRBC Flagged by Analyzer 0 % (0-5); Neutrophil # 5.62 X10^3/uL (2.7-7.7); Neutrophil % 88.2 % (47-70); POSITIVE DIFFERENTIAL YES; Platelet Count 243 K/mm3 (150-450); RBC Distribution Width CV 12.9 % (11.6-14.6); RBC Distribution Width SD 39.8 fl (35.1-43.9); Red Blood Count 4.07 M/mm3 (4.6-6.2); White Blood Count 6.4 K/mm3 (4.4-11.0)
[2021-03-29] MEDS: Ondansetron 4 MG/2 ML Vial IV (08:57)
[2021-03-29 08:58] LABS: Differential Indicated SCAN CRITERIA MET
[2021-03-29] MEDS: 0.9% Normal Saline 1,000 ML 1000 ML IV ×2 (08:59→09:51)
[2021-03-29 09:13] LABS: ALB/GLOB Ratio 0.7 RATIO (0.9-2.4); AST(SGOT) 36 U/L (15-37); Alanine Aminotransfer ALT/SGPT 14 U/L (16-61); Alkaline Phosphatase 223 U/L (45-117); Anion Gap 8 (5-15); BUN 14 mg/dL (7-18); BUN/Creat Ratio 21.4 RATIO (10-20); Calcium,Total 9.2 mg/dL (8.5-10.1); Chloride 100 mmol/L (98-107); Creatinine, Serum 0.66 mg/dL (0.70-1.30); EST Glomerular Filtration Rate 130 mL/min (>60); Est Glom Filt Rate - Afr Amer 157 mL/min (>60); Estimated Creatinine Clearance 92.86 ml/min; Globulin 4.4 g/dL (2.2-4.2); Glucose 107 mg/dL (74-106); Lipase 57 U/L (73-393); Potassium 3.6 mmol/L (3.5-5.1); Protein, Total 7.4 g/dL (6.4-8.2); Sodium Level 134 mmol/L (136-145)
[2021-03-29 10:03] LABS: Bacteria 0 SEEN /hpf (None Seen); Mucous, Urine 0 SEEN /hpf (<or=2+); Red Blood Cells-Urine 0 SEEN /hpf (0-5); Squamous Epithelial Cells - UA 0 SEEN /hpf (0-5); White Blood Cells 0 SEEN /hpf (0-5)
[2021-03-29 10:05] LABS: Color, Urine Yellow (Yellow); Glucose, Dipstick Normal (Normal); Ketone-Dipstick 15 mg/dl (Negative); Leukocyte Esterase-Dipstick Negative /ul (Negative); Nitrite-Dipstick Negative (Negative); Occult Blood-Urine Negative /ul (Negative); Protein-Dipstick 15 mg/dl (Negative); Specific Gravity, Urine 1.015 (1.002-1.030); Urine Bilirubin Dipstick Negative (Negative); Urine Clarity Clear (Clear); Urine Urobilinogen 1 mg/dl (Normal); Urine pH 6.5 (5.0 - 8.0)
[2021-03-29 10:14] VITALS: BP 124/81; PULSE 70; RESP 18; O2SAT 97
[2021-03-29 10:18] VITALS: BP 116/83
[2021-03-29 11:47] VITALS: BP 114/71; PULSE 79; RESP 16; O2SAT 96
== END 2021-03-29 11:51 | disposition home or self-care (01) ==
PROVIDERS: Emergency Provider Emergency Medicine; PCP Nurse Practitioner Family
DX: R11.2 Nausea with vomiting, unspecified (principal); T45.1X5A Adverse effect of antineoplastic and immunosuppressive drugs, initial encounter; Y92.9 Unspecified place or not applicable; C18.9 Malignant neoplasm of colon, unspecified; C78.00 Secondary malignant neoplasm of unspecified lung; Z79.899 Other long term (current) drug therapy; Z87.891 Personal history of nicotine dependence
CPT/HCPCS: 36591; 80053; 81001; 83690; 85025; 96361; 96374; 99284; J7030; A4216; J2405

== ENCOUNTER 2021-04-02 15:01 | Observation (INO) | payer OTHER, SELFPAY ==
[2021-04-02 15:02] VITALS: BP 150/95; PULSE 98; RESP 16; TEMP 37.2; O2SAT 97; BMI 17.0
[2021-04-02 16:29] LABS: Absolute Lymphocyte Count 0.66 X10^3/uL (0.83-4.51); Absolute Neutrophil Count 4.6 X10^3/uL (2.0-7.7); Basophil# 0.02 X10^3/uL; Basophil% 0.3 % (0-1); Eosinophils% 1.7 % (0-5); Hematocrit 31.1 % (40-54); Hemoglobin 10.2 g/dL (13.0-16.5); Lymphocyte # 0.66 X10^3/ul (0.83-4.51); Lymphocyte % 11.5 % (19-41); Mean Corp Hgb Conc 32.8 g/dL (32-36); Mean Corpuscular Hgb 28.2 pg (27.0-32.0); Mean Corpuscular Volume 85.9 fL (80-94); Mean Platelet Vol. 8.3 fl (6.2-12.0); Monocyte# 0.33 X10^3/uL; Monocyte% 5.8 % (0-10); NRBC Flagged by Analyzer 0 % (0-5); Neutrophil # 4.57 X10^3/uL (2.7-7.7); Platelet Count 260 K/mm3 (150-450); RBC Distribution Width CV 12.9 % (11.6-14.6); RBC Distribution Width SD 39.8 fl (35.1-43.9); Red Blood Count 3.62 M/mm3 (4.6-6.2); White Blood Count 5.7 K/mm3 (4.4-11.0)
--- NOTE | 2021-04-02 16:46 | CT_ITS ---
STUDY: CT ABDOMEN AND PELVIS WITH CONTRAST REASON FOR EXAM: Male, 65 years old.LLQ PAIN AFTER IV FLUID INFUSION TODAY, COLON CA W/ LUNG METS, PARTIAL LEFT NEPHRECTOMY, TURP abd pain, concern for obstruction RADIATION DOSAGE (If Supplied By Facility): CTDIvol = ( 7.99 ) mGy, DLP = ( 303.89 ) mGycm TECHNIQUE: Transaxial images were obtained from the dome of the diaphragm to the symphysis pubis without oral contrast. IV 100mL Isovue-300 was administered. Sagittal and coronal images were reconstructed. Individualized dose optimization techniques were used for this CT. COMPARISON: CT of the chest and abdomen and pelvis dated September FINDINGS: Reidentification of multiple lobular moderate size metastatic masses and small nodules of both lungs. The mass in the left lower lobe demonstrates mild interval enlargement from 4.74 cm up to 5.40 cm. Calcifications in these masses are likely reflective of prior treatment such as chemotherapy. The dominant mass in the right middle lobe is also mildly increased in size currently measuring 4.43 x 4.74 cm compared to 3.64 x 4.13 cm on the prior study. Reidentification of a small cysts in the lateral subcapsular region of the right lobe of the liver. The remaining aspects of the liver are unremarkable. Normal gallbladder and extrahepatic biliary system. Normal spleen. Normal pancreas. Unremarkable stomach. Interval development of the moderate-sized 3.96 x 3.81 cm rounded mass in the left adrenal gland compatible with metastatic disease. Normal right kidney. Reidentification of moderate to severe left hydronephrosis. A 2 mm calyceal stone is seen in lower pole of the right kidney. Left anterior colostomy noted without complications. Reidentification of a malignant mass which has increased in size in the middle one third region of the descending colon of the left abdomen the mass is circumferential and fungating and measures 5.41 x 2.65 cm. The mass infiltrates the wall of the colon in this region. Pericolonic stranding is present around this portion of the colon. The appendix is not seen. Unremarkable small bowel. No small bowel obstruction. Normal abdominal aorta. Normal inferior vena cava. There is borderline retroperitoneal lymphadenopathy with enlarged nodes no greater than 10mm in the short axis diameter. Normal urinary bladder. Normal abdominal wall. There are diffuse degenerative changes of the visualized lumbar spine. IMPRESSION: Worsening of disease 1. Malignant mass in the mid aspect of the descending colon has enlarged since the prior study and infiltrates the wall of this portion of the, measuring 5.41 x 2.65 cm 2. No small bowel obstruction 3. Metastatic masses of both lungs demonstrate interval enlargement as above 4. Newly developed moderate sized metastatic mass of the left adrenal gland 5. Moderate to severe left hydronephrosis unchanged from the prior study suspected metastatic disease to the left ureter or postinflammatory UPJ or ureteral stenosis resulting in obstruction. Electronically Signed: Rainer Brown MD at 20:09 EDT , Service support , CT/Abdomen/Pelvis W IV Cont ONLY
--- NOTE | 2021-04-02 16:48 | ED.VIS.GI ---
HPI HPI - GI History of Present Illness Chief Complaint: Abd Pain Informant: patient Narrative Narrative: Patient is a 65-year-old male with history of metastatic adenocarcinoma of the descending colon status post small bowel obstruction and subsequent diverting distal transverse loop colostomy presenting with left-sided abdominal pain and decreased ostomy output. Patient states he had minimal output and gas since last night. Patient is currently undergoing chemotherapy with [place], last treatment was 03/28/2021. Over the weekend he had constipation of his ostomy and was treated with Colace and had a large amount of hard stool through his ostomy. Today he received an IV fluid infusion from oncology and when he got home he ate some soup. After that he suddenly had severe pain in his left abdomen. He has some associated nausea. No vomiting. He notes he has had minimal gas and stool out of his ostomy since last night. Patient states this feels like the last time he is small bowel obstruction. He denies any other complaints at this time. His surgeon is Dr. Marshall. [facility] Medical History Adenocarcinoma of colon Chemotherapy induced neutropenia Chemotherapy management, encounter for CINV (chemotherapy-induced nausea and vomiting) Dermatitis Diarrhea Encounter for education Iron deficiency Malignant neoplasm of colon metastatic to lung Oral candidiasis Pruritus Rectal discharge Stomal prolapse Weight loss Home Medications omeprazole 20 mg PO DAILY 03/02/20 [History Last Taken Unknown] food supplemt, lactose-reduced 120 ml PO 4X/DAY PRN 04/09/20 [History Last Taken Unknown] ondansetron 8 mg disintegrating tablet 8 mg PO Q8H PRN PRN 10 Days #30 tab.rapdis 01/20/21 [Rx Last Taken Unknown] prochlorperazine maleate 10 mg tablet 10 mg PO Q6H PRN PRN 10 Days #30 tablet 01/20/21 [Rx Last Taken Unknown] docusate sodium 100 mg capsule 100 mg PO DAILY 04/01/21 [History Last Taken Unknown] trifluridine-tipiracil [Lonsurf] 3 tab PO BID 04/02/21 [History Last Taken 03/28/21] Allergy/AdvReac Type Severity Reaction Status Date / Time adhesive tape AdvReac Severe Rash Verified 04/02/21 15:03 Family History Sister No problems noted. Other No pertinent family history Surgical History history left partial nephrectomy History of basal cell carcinoma (BCC) excision Hx of transurethral resection of prostate Hypokalemia due to excessive gastrointestinal loss of potassium Social History Smoking Status: Former smoker Tobacco: How many years used: 40 second hand exposure: No alcohol intake: never substance use type: does not use wesly/evangelical: None seatbelt use: always do you feel safe at home: Yes ROS ROS ED Constitutional Constitutional ED: Denies chills, fever(s) or malaise Eyes Eyes: Denies blurry vision or loss of vision ENT ENT ED: Denies rhinorrhea or sore throat Cardiovascular Cardiovascular: Denies chest pain or dizziness Respiratory/Chest Respiratory/Chest: Denies cough or dyspnea Gastrointestinal Gastrointestinal: Reports abdominal pain, constipation and nausea; Denies vomiting Genitourinary Genitourinary ED: Denies dysuria or hematuria Musculoskeletal Musculoskeletal: Denies arthralgias or myalgias Integumentary Denies rash or wounds Neurologic Neurologic: Denies focal weakness or headache(s) Psychiatric Psychiatric: Denies anxiety or behavioral changes EXAM Physical Exam Const Vital Signs: 04/02/21 15:02 04/02/21 19:43 Temperature 99 F Temperature Source Temporal Pulse Rate 98 Respiratory Rate 16 18 Blood Pressure 150/95 H Blood Pressure Mean 113 Pulse Ox 97 Oxygen Delivery Method Room Air Positive cachectic and alert General Appearance ED: cachectic and NAD Nutritional Appearance: cachectic HEENT Reports normocephalic atraumatic Nose: no nasal discharge External Ear: external ears normal Mouth ED: Yes moist mucous membranes normal Eyes PERRL and EOMs intact bilaterally Neck full ROM and no meningeal signs Chest Wall inspection of chest normal Resp normal respiratory effort and normal air movement Cardio regular rate and regular rhythm GI normal to inspection, nondistended, normoactive bowel sounds GI Narrative: There is minimal stool in his ostomy bag and no gas. Ostomy is removed and there is no stool at the stoma. Stoma is normal-appearing and pink. Auscultation: normoactive bowel sounds Palpation: soft, tender LLQ and LUQ and guarding Extremity normal to inspection and full ROM Neuro oriented x3 and no focal motor deficits Psych mental status grossly normal and thought process normal Skin no rashes or lesions noted and no wounds MDM MDM MDM Narrative Medical decision making narrative: Patient has severe left-sided abdominal pain. Physical exam is difficult because he is having so much pain. He is given multiple doses of IV morphine and then IV Dilaudid with minimal improvement of his pain. He has had issues with constipation and been having decreased ostomy output. Patient is quite complex as he does have metastatic colon cancer. CT does not show any acute small bowel obstruction. He does have enlarging mass of the descending colon however his diverting ostomy is proximal to this. This could be the cause of his pain however. He does have a subtle electrolyte abnormalities however these are all near his baseline. Did discuss with oncology on-call, Dr. Roman, who states pain control is the best thing to offer. Patient does follow with pain management, Dr. Parker. Patient does not feel comfortable going home and does not receive adequate pain control. He would like to be admitted for intractable abdominal pain. Given his degree of pain and comorbidities I think this is reasonable. Patient and are agreeable with this plan of care. Lab Data Attestation: I reviewed the patient's lab results. Labs: Laboratory Results - last 24 hr 04/02/21 04/02/21 04/02/21 16:10 16:10 16:10 WBC 5.7 RBC 3.62 L Hgb 10.2 L Hct 31.1 L MCV 85.9 MCH 28.2 MCHC 32.8 RDW Std Deviation 39.8 RDW Coeff of Cherry 12.9 Plt Count 260 MPV 8.3 Immature Gran % (Auto) 0.700 Neut % (Auto) 80.0 H Lymph % (Auto) 11.5 L [place] % (Auto) 5.8 Eos % (Auto) 1.7 Baso % (Auto) 0.3 Absolute Neuts (auto) 4.6 Absolute Lymphs (auto) 0.66 L Nucleated RBC % 0 Sodium Cancelled 133 L Potassium Cancelled 3.6 Chloride Cancelled 102 Carbon Dioxide Cancelled 27.0 Anion Gap Cancelled 4 L BUN Cancelled 11 Creatinine Cancelled 0.51 L Estim Creat Clear Calc Cancelled 121.11 Est GFR (MDRD) Af Amer Cancelled 209 Est GFR (MDRD) Non-Af Cancelled 173 BUN/Creatinine Ratio Cancelled 21.5 H Glucose Cancelled 100 Lactic Acid Calcium Cancelled 9.1 Total Bilirubin 0.90 AST 43 H ALT 16 Alkaline Phosphatase 225 H Total Protein 7.0 Albumin 2.9 L Globulin 4.1 Albumin/Globulin Ratio 0.7 L Lipase 67 L Urine Color Urine Clarity Urine pH Ur Specific [place] U Specif Grav (Refrac) Urine Protein Urine Glucose (UA) Urine Ketones Urine Occult Blood Urine Nitrite Urine Bilirubin Urine Urobilinogen Ur Leukocyte Esterase Urine RBC Urine WBC Ur Squamous Epith Cells Ur Transition Epith Cell Ur Renal Epithelial Cell Calcium Oxalate Crystal Uric Acid Crystals Triple Phos Crystals Other Crystals Amorphous Sediment Urine Bacteria Hyaline Casts Fine Granular Casts Coarse Granular Casts Waxy Casts RBC Casts WBC Casts Urine Mucus Urine Trichomonas Urine Yeast 04/02/21 04/02/21 04/02/21 16:10 19:35 19:55 WBC RBC Hgb Hct MCV MCH MCHC RDW Std Deviation RDW Coeff of [place] Plt Count MPV Immature Gran % (Auto) Neut % (Auto) Lymph % (Auto) [place] % (Auto) Eos % (Auto) Baso % (Auto) Absolute Neuts (auto) Absolute Lymphs (auto) Nucleated RBC % Sodium Potassium Chloride Carbon Dioxide Anion Gap BUN Creatinine Estim Creat Clear Calc Est GFR (MDRD) Af Amer Est GFR (MDRD) Non-Af BUN/Creatinine Ratio Glucose Lactic Acid 0.9 Calcium Total Bilirubin AST ALT Alkaline Phosphatase Total Protein Albumin Globulin Albumin/Globulin Ratio Lipase Urine Color Straw Cancelled Urine Clarity Clear Cancelled Urine pH 7.0 Cancelled Ur Specific [place] 1.005 Cancelled U Specif Grav (Refrac) Cancelled Urine Protein Negative Cancelled Urine Glucose (UA) Normal Cancelled Urine Ketones Negative Cancelled Urine Occult Blood Negative Cancelled Urine Nitrite Negative Cancelled Urine Bilirubin Negative Cancelled Urine Urobilinogen Normal Cancelled Ur Leukocyte Esterase Negative Cancelled Urine RBC 0 SEEN Cancelled Urine WBC 0 SEEN Cancelled Ur Squamous Epith Cells 0 SEEN Cancelled Ur Transition Epith Cell Cancelled Ur Renal Epithelial Cell Cancelled Calcium Oxalate Crystal Cancelled Uric Acid Crystals Cancelled Triple Phos Crystals Cancelled Other Crystals Cancelled Amorphous Sediment Cancelled Urine Bacteria 0 SEEN Cancelled Hyaline Casts Cancelled Fine Granular Casts Cancelled Coarse Granular Casts Cancelled Waxy Casts Cancelled RBC Casts Cancelled WBC Casts Cancelled Urine Mucus 0 SEEN Cancelled Urine Trichomonas Cancelled Urine Yeast Cancelled Radiography Diagnostic Testing: Radiology Impression Abdomen/Pelvis CT 04/02/21 16:46 Discharge Plan Dx/Rx/DC Orders Clinical Impression: Abdominal pain, Constipation, Malignant neoplasm of colon metastatic to lung Disposition Disposition: Acute Care Hospital [facility] Discharge Date/Time: 04/02/21 23:15
[2021-04-02] MEDS: Morphine 4 MG/ML Syringe IV ×2 (17:04→18:43)
[2021-04-02] MEDS: 0.9% Normal Saline 1,000 ML 125 ML IV (17:04)
[2021-04-02] MEDS: Ondansetron 4 MG/2 ML Vial IV (17:05)
--- NOTE | 2021-04-02 17:05 | ED.RN ---
scanner in room not working. meds verified with rn
[2021-04-02 17:14] LABS: Lactic Acid 0.9 mmol/L (0.4-1.9)
[2021-04-02 17:36] LABS: ALB/GLOB Ratio 0.7 RATIO (0.9-2.4); AST(SGOT) 43 U/L (15-37); Alanine Aminotransfer ALT/SGPT 16 U/L (16-61); Albumin, Serum 2.9 g/dL (3.2-5.0); Alkaline Phosphatase 225 U/L (45-117); Anion Gap 4 (5-15); BUN 11 mg/dL (7-18); BUN/Creat Ratio 21.5 RATIO (10-20); Calcium,Total 9.1 mg/dL (8.5-10.1); Chloride 102 mmol/L (98-107); Creatinine, Serum 0.51 mg/dL (0.70-1.30); EST Glomerular Filtration Rate 173 mL/min (>60); Est Glom Filt Rate - Afr Amer 209 mL/min (>60); Estimated Creatinine Clearance 121.11 ml/min; Globulin 4.1 g/dL (2.2-4.2); Glucose 100 mg/dL (74-106); Lipase 67 U/L (73-393); Potassium 3.6 mmol/L (3.5-5.1); Sodium Level 133 mmol/L (136-145)
[2021-04-02 19:43] VITALS: RESP 18
[2021-04-02 19:45] LABS: Bacteria 0 SEEN /hpf (None Seen); Mucous, Urine 0 SEEN /hpf (<or=2+); Red Blood Cells-Urine 0 SEEN /hpf (0-5); Squamous Epithelial Cells - UA 0 SEEN /hpf (0-5); White Blood Cells 0 SEEN /hpf (0-5)
[2021-04-02 20:00] LABS: Color, Urine Straw (Yellow); Glucose, Dipstick Normal (Normal); Ketone-Dipstick Negative (Negative); Leukocyte Esterase-Dipstick Negative /ul (Negative); Nitrite-Dipstick Negative (Negative); Occult Blood-Urine Negative /ul (Negative); Protein-Dipstick Negative (Negative); Specific Gravity, Urine 1.005 (1.002-1.030); Urine Bilirubin Dipstick Negative (Negative); Urine Clarity Clear (Clear); Urine Urobilinogen Normal (Normal)
[2021-04-02] MEDS: HYDROmorphone 0.5 MG/0.5 ML SYRINGE IV (21:11)
--- NOTE | 2021-04-02 22:18 | NURSING ---
MED SURG ROSEANNE INTRACTABLE ABD PAIN
--- NOTE | 2021-04-02 22:42 | PCM.HP.STD ---
Documented by User: WES Monreal 04/02/21 22:56 HPI - General General Date of Admission: 04/02/21 Date of Service: 04/02/21 Chief Complaint: Abdominal pain HPI Narrative AMADA SMITH, is a 65 M who presents with complaints of abdominal pain. Patient states that he has a colostomy due to metastatic lung cancer and is concerned that he has a small bowel obstruction as he has had 1 in the past. Patient states that he has left-sided abdominal pain and decreased ostomy output. Patient currently receives chemotherapy with his last treatment being 03/28/2021. Patient reports that he had constipation over the weekend and was treated with Colace and had a large amount of solid stool come out of his ostomy. Patient states that he received an IV fluid infusion at the outpatient infusion center and went home and ate some soup. Directly after eating soup he had severe pain in his left abdomen with associated nausea. Patient denies fever, chills, shortness of breath, cough, chest pain, vomiting. [facility] Medical History Adenocarcinoma of colon Chemotherapy induced neutropenia Chemotherapy management, encounter for CINV (chemotherapy-induced nausea and vomiting) Dermatitis Diarrhea Encounter for education Iron deficiency Malignant neoplasm of colon metastatic to lung Oral candidiasis Pruritus Rectal discharge Stomal prolapse Weight loss Home Medications omeprazole 20 mg PO DAILY 03/02/20 [History Last Taken Unknown] food supplemt, lactose-reduced 120 ml PO 4X/DAY PRN 04/09/20 [History Last Taken Unknown] ondansetron 8 mg disintegrating tablet 8 mg PO Q8H PRN PRN 10 Days #30 tab.rapdis 01/20/21 [Rx Last Taken Unknown] prochlorperazine maleate 10 mg tablet 10 mg PO Q6H PRN PRN 10 Days #30 tablet 01/20/21 [Rx Last Taken Unknown] docusate sodium 100 mg capsule 100 mg PO DAILY 04/01/21 [History Last Taken Unknown] trifluridine-tipiracil [Lonsurf] 3 tab PO BID 04/02/21 [History Last Taken Unknown] Allergy/AdvReac Type Severity Reaction Status Date / Time adhesive tape AdvReac Severe Rash Verified 04/02/21 15:03 Family History Sister No problems noted. Other No pertinent family history Surgical History history left partial nephrectomy History of basal cell carcinoma (BCC) excision Hx of transurethral resection of prostate Hypokalemia due to excessive gastrointestinal loss of potassium Social History Smoking Status: Former smoker Tobacco: How many years used: 40 second hand exposure: No alcohol intake: never substance use type: does not use wesly/caodaism: None seatbelt use: always do you feel safe at home: Yes ROS Constitutional Constitutional: Denies anorexia, chills, fatigue, fever(s) or weakness Cardiovascular Cardiovascular: Denies chest pain, edema, palpitations or syncope Respiratory/Chest Respiratory/Chest: Denies cough, shortness of breath at rest or shortness of breath with exertion Gastrointestinal Gastrointestinal: Reports abdominal pain, constipation and nausea; Denies diarrhea or vomiting Genitourinary Genitourinary: Denies dysuria Musculoskeletal Musculoskeletal: Denies back pain, extremity pain, joint pain or joint stiffness Integumentary Integumentary: Denies dry skin Neurologic Neurologic: Denies abnormal gait, abnormal speech, confusion, dizziness or focal weakness Psychiatric Psychiatric: Denies anxiety or depression Endocrine Endocrinology: Denies change in body appearance Hematologic/Lymphatic Hematologic/Lymphatic: Denies anemia, easy bleeding or easy bruising Vital Signs Vital Signs Vital Signs: 04/02/21 15:02 04/02/21 19:43 Temperature 99 F Temperature Source Temporal Pulse Rate 98 Respiratory Rate 16 18 Blood Pressure 150/95 H Blood Pressure Mean 113 Pulse Ox 97 Oxygen Delivery Method Room Air Weight Weight: 129 lb Body Mass Index (BMI) 17.0 Physical Exam Const alert, oriented x3 and no apparent distress General Appearance: cooperative HEENT normocephalic and head/scalp atraumatic Eyes conjunctivae normal and no scleral icterus Neck supple and no JVD General: trachea midline Resp normal respiratory effort, normal air movement and clear to auscultation bilaterally Cardio regular rate, regular rhythm, S1 normal heart sound, S2 normal heart sound and peripheral pulses 2+ throughout GI Inspection: ostomy present Auscultation: hypoactive bowel sounds Palpation: tender LLQ and RLQ and guarding LLQ and RLQ Extremity normal capillary refill and no clubbing, cyanosis or edema General Extremity: no tenderness to palpation of joints or extremities Skin General Skin Exam: no breakdown and turgor normal Lesions: no lesions Rashes: no rashes Neuro no focal motor deficits and no sensory deficits noted Speech: speech normal Motor Exam: Negative for general weakness Psych thought process normal, cooperative and affect normal Appearance: appropriate Results Lab / Micro Data Result Diagrams: 04/02/21 16:10 04/02/21 16:10 Labs: Laboratory Results - last 24 hr 04/02/21 16:10: WBC 5.7, RBC 3.62 L, Hgb 10.2 L, Hct 31.1 L, MCV 85.9, MCH 28.2, MCHC 32.8, RDW Std Deviation 39.8, RDW Coeff of Cherry 12.9, Plt Count 260, MPV 8.3, Immature Gran % (Auto) 0.700, Neut % (Auto) 80.0 H, Lymph % (Auto) 11.5 L, [place] % (Auto) 5.8, Eos % (Auto) 1.7, Baso % (Auto) 0.3, Absolute Neuts (auto) 4.6, Absolute Lymphs (auto) 0.66 L, Nucleated RBC % 0 04/02/21 16:10: Sodium Cancelled, Potassium Cancelled, Chloride Cancelled, Carbon Dioxide Cancelled, Anion Gap Cancelled, BUN Cancelled, Creatinine Cancelled, Estim Creat Clear Calc Cancelled, Est GFR (MDRD) Af Amer Cancelled, Est GFR (MDRD) Non-Af Cancelled, BUN/Creatinine Ratio Cancelled, Glucose Cancelled, Calcium Cancelled 04/02/21 16:10: Sodium 133 L, Potassium 3.6, Chloride 102, Carbon Dioxide 27.0, Anion Gap 4 L, BUN 11, Creatinine 0.51 L, Estim Creat Clear Calc 121.11, Est GFR (MDRD) Af Amer 209, Est GFR (MDRD) Non-Af 173, BUN/Creatinine Ratio 21.5 H, Glucose 100, Calcium 9.1, Total Bilirubin 0.90, AST 43 H, ALT 16, Alkaline Phosphatase 225 H, Total Protein 7.0, Albumin 2.9 L, Globulin 4.1, Albumin/Globulin Ratio 0.7 L, Lipase 67 L 04/02/21 16:10: Lactic Acid 0.9 09/08/21 19:35: Urine Color Straw, Urine Clarity Clear, Urine pH 7.0, Ur Specific [place] 1.005, Urine Protein Negative, Urine Glucose (UA) Normal, Urine Ketones Negative, Urine Occult Blood Negative, Urine Nitrite Negative, Urine Bilirubin Negative, Urine Urobilinogen Normal, Ur Leukocyte Esterase Negative, Urine RBC 0 SEEN, Urine WBC 0 SEEN, Ur Squamous Epith Cells 0 SEEN, Urine Bacteria 0 SEEN, Urine Mucus 0 SEEN 04/02/21 19:55: Urine Color Cancelled, Urine Clarity Cancelled, Urine pH Cancelled, Ur Specific [place] Cancelled, U Specif Grav (Refrac) Cancelled, Urine Protein Cancelled, Urine Glucose (UA) Cancelled, Urine Ketones Cancelled, Urine Occult Blood Cancelled, Urine Nitrite Cancelled, Urine Bilirubin Cancelled, Urine Urobilinogen Cancelled, Ur Leukocyte Esterase Cancelled, Urine RBC Cancelled, Urine WBC Cancelled, Ur Squamous Epith Cells Cancelled, Ur Transition Epith Cell Cancelled, Ur Renal Epithelial Cell Cancelled, Calcium Oxalate Crystal Cancelled, Uric Acid Crystals Cancelled, Triple Phos Crystals Cancelled, Other Crystals Cancelled, Amorphous Sediment Cancelled, Urine Bacteria Cancelled, Hyaline Casts Cancelled, Fine Granular Casts Cancelled, Coarse Granular Casts Cancelled, Waxy Casts Cancelled, RBC Casts Cancelled, WBC Casts Cancelled, Urine Mucus Cancelled, Urine Trichomonas Cancelled, Urine Yeast Cancelled Radiology Impression Abdomen/Pelvis CT 04/02/21 16:46 Assessment & Plan Assessment/Plan (1) Abdominal pain: QUALIFIERS: Abdominal location: left lower quadrant Qualified Code(s): R10.32 - Left lower quadrant pain (2) Constipation: QUALIFIERS: Constipation type: unspecified constipation type Qualified Code(s): K59.00 - Constipation, unspecified PLAN: 1. Abdominal pain -Admit to [facility] for observation -CBC and BMP daily -Regular diet -Vital signs per protocol -As needed Tylenol, oxycodone, morphine ordered for pain along with p.o. and IV Zofran and Compazine for nausea 2. Constipation -We will continue patient Colace. -MiraLAX ordered twice daily 3. Presence of colostomy -Surgery 03/02/2020 DVT prophylaxis-subcu Lovenox This patient was seen by MALINI MonraelC under the supervision of Dr. Nolan. Documented by User: Dr. Mihai Nolan MD 04/02/21 23:54 HPI - General General Date of Admission: 04/02/21 PFSH Medical History Adenocarcinoma of colon Chemotherapy induced neutropenia Chemotherapy management, encounter for CINV (chemotherapy-induced nausea and vomiting) Dermatitis Diarrhea Encounter for education Iron deficiency Malignant neoplasm of colon metastatic to lung Oral candidiasis Pruritus Rectal discharge Stomal prolapse Weight loss Home Medications omeprazole 20 mg PO DAILY 03/02/20 [History Last Taken Unknown] food supplemt, lactose-reduced 120 ml PO 4X/DAY PRN 04/09/20 [History Last Taken Unknown] ondansetron 8 mg disintegrating tablet 8 mg PO Q8H PRN PRN 10 Days #30 tab.rapdis 01/20/21 [Rx Last Taken Unknown] prochlorperazine maleate 10 mg tablet 10 mg PO Q6H PRN PRN 10 Days #30 tablet 01/20/21 [Rx Last Taken Unknown] docusate sodium 100 mg capsule 100 mg PO DAILY 04/01/21 [History Last Taken Unknown] trifluridine-tipiracil [Lonsurf] 3 tab PO BID 04/02/21 [History Last Taken Unknown] Allergy/AdvReac Type Severity Reaction Status Date / Time adhesive tape AdvReac Severe Rash Verified 04/02/21 15:03 Family History Sister No problems noted. Other No pertinent family history Surgical History history left partial nephrectomy History of basal cell carcinoma (BCC) excision Hx of transurethral resection of prostate Hypokalemia due to excessive gastrointestinal loss of potassium Social History Smoking Status: Former smoker Tobacco: How many years used: 40 second hand exposure: No alcohol intake: never substance use type: does not use wesly/caodaism: None seatbelt use: always do you feel safe at home: Yes Results Lab / Micro Data Result Diagrams: 04/02/21 16:10 04/02/21 16:10 Charges/Coding Addendum Addendum: Dr. Nolan: I personally reviewed the chart and examined the patient, and agree with the above findings.65-year-old male presents to the hospital with abdominal pain and nausea. He denies any ostomy output. He does have a history of left-sided colon cancer with metastatic lesions to the lung and liver as well as possible adrenal gland. He has been undergoing chemotherapy since he was diagnosed last year in February and he is currently on his third different type of chemotherapy. There has not been any significant improvement in his lesions however he states that he would like to continue fighting for as long as possible. I did discuss with him in a 20-minute conversation with him and his about advanced care planning options, he does state that he is a DNR CCA and had never been spoken to about palliative care services or hospice. He would like to see if he could qualify for palliative care but is not quite ready to make that decision on hospice yet as he is only completed 1 round of his third chemotherapy. In the meantime we will continue with the bowel regimen I did not make him n.p.o. but I did advise him to pick a gentle diet, I felt that his cancer diagnosis merited as much nutrition as possible. We will continue with some IV fluids as well as pain medications. He does see Dr. Adams as an outpatient for his medical marijuana and he is also been offered a potential abdominal nerve block to help with the pain. CT scan did not show a small bowel obstruction, and surgery stated that there was no surgical intervention necessary at this time. Visit Charges OBSV E&M: 25023 Initial observation care L3 Procedures Hospitalists Procedures: 46984 Advncd Care Plan 30 Min
[2021-04-02 23:03] VITALS: BP 123/70; PULSE 63; RESP 18; TEMP 36.7; O2SAT 96
[2021-04-02 23:29] VITALS: BP 124/68; PULSE 59; RESP 16; TEMP 37.1; O2SAT 96
[2021-04-02 23:30] VITALS: BMI 17.2
--- NOTE | 2021-04-02 23:58 | NURSING ---
Pt able to tell this RN he received Moderna COVID vaccine x2. States was in August and September of this year but is unsure of actual date
[2021-04-03] MEDS: Dextrose 5%/0.9% NaCl 1,000 ML 100 ML IV ×3 (00:11→19:29)
[2021-04-03] MEDS: 0.9% Saline Lock 10 ML Syringe IV ×2 (00:12→23:20)
[2021-04-03] MEDS: Morphine 4 MG/ML Syringe IV (00:30)
[2021-04-03] MEDS: Polyethylene Glycol 3350 17 GM PACKET PO ×3 (00:31→22:59)
--- NOTE | 2021-04-03 00:53 | PCS.PANDOC ---
PANDEMIC DOCUMENTATION INITIATED: Date: 03/10/2021 Time: 190
[2021-04-03 05:37] VITALS: BP 122/73; PULSE 62; RESP 17; TEMP 36.7; O2SAT 97
[2021-04-03 05:38] LABS: Absolute Lymphocyte Count 0.49 X10^3/uL (0.83-4.51); Absolute Neutrophil Count 3.2 X10^3/uL (2.0-7.7); Basophil# 0.01 X10^3/uL; Basophil% 0.2 % (0-1); Eosinophil# 0.11 X10^3/uL; Eosinophils% 2.7 % (0-5); Hematocrit 31.2 % (40-54); Lymphocyte # 0.49 X10^3/ul (0.83-4.51); Lymphocyte % 12.1 % (19-41); Mean Corp Hgb Conc 32.1 g/dL (32-36); Mean Corpuscular Hgb 27.7 pg (27.0-32.0); Mean Corpuscular Volume 86.4 fL (80-94); Mean Platelet Vol. 8.2 fl (6.2-12.0); Monocyte# 0.22 X10^3/uL; Monocyte% 5.4 % (0-10); NRBC Flagged by Analyzer 0 % (0-5); Neutrophil % 78.9 % (47-70); POSITIVE DIFFERENTIAL YES; Platelet Count 202 K/mm3 (150-450); RBC Distribution Width CV 12.8 % (11.6-14.6); RBC Distribution Width SD 39.5 fl (35.1-43.9); Red Blood Count 3.61 M/mm3 (4.6-6.2); White Blood Count 4.1 K/mm3 (4.4-11.0)
[2021-04-03 05:39] LABS: Differential Indicated SCAN CRITERIA MET
[2021-04-03 06:09] LABS: Anion Gap 5 (5-15); BUN 8 mg/dL (7-18); BUN/Creat Ratio 14.1 RATIO (10-20); Calcium,Total 8.7 mg/dL (8.5-10.1); Chloride 102 mmol/L (98-107); Creatinine, Serum 0.57 mg/dL (0.70-1.30); EST Glomerular Filtration Rate 154 mL/min (>60); Est Glom Filt Rate - Afr Amer 186 mL/min (>60); Estimated Creatinine Clearance 109.79 ml/min; Glucose 108 mg/dL (74-106); Potassium 3.6 mmol/L (3.5-5.1); Sodium Level 135 mmol/L (136-145)
[2021-04-03 09:00] VITALS: BP 127/106; PULSE 68; RESP 18; TEMP 36.6; O2SAT 98
[2021-04-03] MEDS: Docusate Sodium 100 MG Capsule PO (10:01)
[2021-04-03] MEDS: Enoxaparin 40 MG/0.4 ML Syringe SC (10:01)
[2021-04-03] MEDS: Pantoprazole Sodium 20 MG Tablet PO (10:01)
--- NOTE | 2021-04-03 11:25 | WOUNDNOTE ---
Colostomy appliance had started leaking. patient has been using disposable appliances at home. pt does not have any appliances at the hospital. patient agreeable for this nurse to change to the appliances available at the hospital. removed appliance. stoma is well budded and dark pink. peristomal skin is intact. cleansed skin with warm water. pat dry. applied a new flat 2 piece Cecily appliance with an [employer] ring. patient tolerated well. will monitor. pt denies further needs. and son present at bedside.
--- NOTE | 2021-04-03 12:45 | PN.HOSP_ITS ---
Subjective Subjective Patient states he is not having as much nausea or abdominal pain at this time. His ostomy output has still been slow and much slower than typical. He states she has had constipation issues in the past. He is currently drinking prune juice. He is open to discussing things with palliative care and seems to be jake listic but would like to give this third round of chemo a good try before considering hospice. Objective Data Objective Data Vital Signs: Vital Signs Temp Pulse Resp BP Pulse Ox 97.8 F 68 18 127/106 H 98 04/03/21 09:00 04/03/21 09:00 04/03/21 09:00 04/03/21 09:00 04/03/21 09:00 Oxygen Delivery Method Room Air Weight: 59.285 kg Body Mass Index (BMI) 17.2 Intake & Output: Intake and Output for Last 24 Hours 04/01/21 04/02/21 04/03/21 23:59 23:59 23:59 Intake Total 1000 / 1000 1551.67 / 1551.67 Balance 1000 / 1000 1551.67 / 1551.67 Lab / Micro Data Result Diagrams: 04/03/21 05:30 04/03/21 05:30 Labs: Laboratory Results - last 24 hr 04/02/21 16:10: WBC 5.7, RBC 3.62 L, Hgb 10.2 L, Hct 31.1 L, MCV 85.9, MCH 28.2, MCHC 32.8, RDW Std Deviation 39.8, RDW Coeff of [place] 12.9, Plt Count 260, MPV 8.3, Immature Gran % (Auto) 0.700, Neut % (Auto) 80.0 H, Lymph % (Auto) 11.5 L, [place] % (Auto) 5.8, Eos % (Auto) 1.7, Baso % (Auto) 0.3, Absolute Neuts (auto) 4.6, Absolute Lymphs (auto) 0.66 L, Nucleated RBC % 0 04/02/21 16:10: Sodium Cancelled, Potassium Cancelled, Chloride Cancelled, Carbon Dioxide Cancelled, Anion Gap Cancelled, BUN Cancelled, Creatinine Cancelled, Estim Creat Clear Calc Cancelled, Est GFR (MDRD) Af Amer Cancelled, Est GFR (MDRD) Non-Af Cancelled, BUN/Creatinine Ratio Cancelled, Glucose Cancelled, Calcium Cancelled 04/02/21 16:10: Sodium 133 L, Potassium 3.6, Chloride 102, Carbon Dioxide 27.0, Anion Gap 4 L, BUN 11, Creatinine 0.51 L, Estim Creat Clear Calc 121.11, Est GFR (MDRD) Af Amer 209, Est GFR (MDRD) Non-Af 173, BUN/Creatinine Ratio 21.5 H, Glucose 100, Calcium 9.1, Total Bilirubin 0.90, AST 43 H, ALT 16, Alkaline Phosphatase 225 H, Total Protein 7.0, Albumin 2.9 L, Globulin 4.1, Albumin/Globulin Ratio 0.7 L, Lipase 67 L 04/02/21 16:10: Lactic Acid 0.9 04/02/21 19:35: Urine Color Straw, Urine Clarity Clear, Urine pH 7.0, Ur Spec ific [place] 1.005, Urine Protein Negative, Urine Glucose (UA) Normal, Urine Ketones Negative, Urine Occult Blood Negative, Urine Nitrite Negative, Urine Bilirubin Negative, Urine Urobilinogen Normal, Ur Leukocyte Esterase Negative, Urine RBC 0 SEEN, Urine WBC 0 SEEN, Ur Squamous Epith Cells 0 SEEN, Urine Bacteria 0 SEEN, Urine Mucus 0 SEEN 04/02/21 19:55: Urine Color Cancelled, Urine Clarity Cancelled, Urine pH Cancelled, Ur Specific [place] Cancelled, U Specif Grav (Refrac) Cancelled, Urine Protein Cancelled, Urine Glucose (UA) Cancelled, Urine Ketones Cancelled, Urine Occult Blood Cancelled, Urine Nitrite Cancelled, Urine Bilirubin Cancelled, Urine Urobilinogen Cancelled, Ur Leukocyte Esterase Cancelled, Urine RBC Cancelled, Urine WBC Cancelled, Ur Squamous Epith Cells Cancelled, Ur Transition Epith Cell Cancelled, Ur Renal Epithelial Cell Cancelled, Calcium Oxa late Crystal Cancelled, Uric Acid Crystals Cancelled, Triple Phos Crystals Cancelled, Other Crystals Cancelled, Amorphous Sediment Cancelled, Urine Bacteria Cancelled, Hyaline Casts Cancelled, Fine Granular Casts Cancelled, Coarse Granular Casts Cancelled, Waxy Casts Cancelled, RBC Casts Cancelled, WBC Casts Cancelled, Urine Mucus Cancelled, Urine Trichomonas Cancelled, Urine Yeast Cancelled 04/03/21 05:30: Sodium 135 L, Potassium 3.6, Chloride 102, Carbon Dioxide 28.0, Anion Gap 5, BUN 8, Creatinine 0.57 L, Estim Creat Clear Calc 109.79, Est GFR (MDRD) Af Amer 186, Est GFR (MDRD) Non-Af 154, BUN/Creatinine Ratio 14.1, Glucose 108 H, Calcium 8.7 04/03/21 05:30: WBC 4.1 L, RBC 3.61 L, Hgb 10.0 L, Hct 31.2 L, MCV 86.4, MCH 27.7, MCHC 32.1, RDW Std Deviation 39.5, RDW Coeff of [place] 12.8, Plt Count 202, MPV 8.2, Immature Gran % (Auto) 0.700, Neut % (Auto) 78.9 H, Lymph % (Auto) 12.1 L, [place] % (Auto) 5.4, Eos % (Auto) 2.7, Baso % (Auto) 0.2, Absolute Neuts (auto) 3.2, Absolute Lymphs (auto) 0.49 L, Nucleated RBC % 0, Diff Path Review May foll Radiography Diagnostic Testing: Radiology Impression Abdomen/Pelvis CT 04/02/21 16:46 Physical Exam Const alert, oriented x3 and no apparent distress Constitutional Narrative: Upper middle-aged white male sitting up in bed, appears older than stated age, nontoxic, extremely thin Exam Limitations: no limitations Nutritional Appearance: cachectic HEENT head/scalp atraumatic, moist oral mucous membranes and oropharynx normal HEENT Narrative: Temporal wasting Head and Scalp: normocephalic Mouth: oral and palatal mucosa normal Resp normal respiratory effort, no retractions, no use of accessory muscles and clear to auscultation bilaterally Resp Narrative: Diffusely diminished but no adventitious sounds Auscultation: Negative for crackles, rales, rhonchi or wheezes Cardio regular rate, regular rhythm, S1 normal heart sound, S2 normal heart sound, no murmurs, no rub, no gallops, no clicks and no JVD GI GI Narrative: Mild distention, no tenderness with palpation, good bowel sounds, ostomy in place with minimal output Extremity no clubbing, cyanosis or edema Extremity Narrative: Marked decrease in lean muscle mass Peripheral Pulses: Yes pulses 2+ throughout Neuro oriented x3, moves all extremities and no focal motor deficits Neuro Narrative: Generalized weakness Sensorium / Orientation: awake and alert Psych affect normal Psych Narrative: Very pleasant Assessment & Plan Assessment/Plan (1) Abdominal pain: QUALIFIERS: Abdominal location: left lower quadrant Qualified Code(s): R10.32 - Left lower quadrant pain (2) Constipation: QUALIFIERS: Constipation type: unspecified constipation type Qualified Code(s): K59.00 - Constipation, unspecified (3) Malignant neoplasm of colon metastatic to lung: PLAN: Abdominal pain/decreased ostomy output -CT done in the emergency department and showed malignant mass in the mid aspect of the descending colon that has enlarged and infiltrates the wall, metastatic masses in both lungs, moderate sized metastatic mass in the left adrenal gland, moderate to severe left hydronephrosis that is unchanged, but no small bowel obstruction -Per documentation the case was discussed with surgery and his abdomen is cu rrently nonsurgical -Continue MiraLAX twice daily and Colace -Patient is also drinking prune juice to help improve motility -If no change in the next 24 hours with regards to stool output from his ostomy would consult general surgery -Patient follows with Dr. Marshall Metastatic colon cancer -Patient was diagnosed in February 2020 -Has undergone 2 different types of chemotherapy thus far and is on his third -Patient states he is not yet ready to give up and would like to give the third round of chemo a try but is willing to talk to palliative care -Palliative care consult in place -Patient is on Lonsurf Chemotherapy-induced nausea and vomiting -Continue as needed antiemetics GERD -Continue omeprazole Chronic left hydronephrosis -Peers to be secondary to his malignancy -Stable -No current intervention Chronic anemia -Counts are stable -Continue to monitor Severe malnutrition -Continue nutritional supplements -Liberalized diet History of tobacco abuse -Remote -Does smoke medical marijuana for management of his nausea prescribed by Dr. Adams DVT prophylaxis -Continue Lovenox CODE STATUS -DNR CCA no intubation Charges/Coding Visit Charges Inpatient E&M: 19758 Subs Hosp L2
[2021-04-03 13:52] VITALS: BP 122/67; PULSE 68; RESP 18; TEMP 37; O2SAT 98
--- NOTE | 2021-04-03 14:57 | CHAPLAIN ---
Type of Pastoral Visit _x__ Initial Visit ___ Follow-up Visit ___ On-call Visit ___ General Patient Visit ___ Spiritual Assessment ___ Family Conference ___ Bereavement ___ Rapid Response ___ Code Blue ___ Other (describe below) Pastoral Care Referral From _x__ Patient ___ Family ___ Nurse ___ Physician ___ [place] Pens As[employer]er ___ House Coordinator ___ Other (describe below) Sacrament/Intervention _x__ Active listening ___ Anointing ___ Worship ___ Bereavement ___ Communion ___ Elaina exploration ___ ___ Life review _x__ Prayer ___ Reconciliation ___ Sacrament of Sick _x__ Supportive presence ___ Wedding ___ Other (describe below) Pastoral Comments patient and his spouse have both been seen by this contract officer in previous admissions; pt gives update on his health, and his soon to be nursing home; pt speaks of his determination to continue to fight his cancer and to be thankful for each day that he wakes up; pt asks about update on contract officer's life; pt wants for supportive conversation and prayer
[2021-04-03 16:40] LABS: Pathologist Review Reviewed
[2021-04-03] MEDS: Acetaminophen 325 MG Tablet 650 MG PO (23:08)
[2021-04-03 23:11] VITALS: BP 136/75; PULSE 66; RESP 18; TEMP 36.6; O2SAT 96
[2021-04-04 04:59] VITALS: BP 146/77; PULSE 58; RESP 16; TEMP 36.5; O2SAT 97
[2021-04-04] MEDS: Dextrose 5%/0.9% NaCl 1,000 ML 100 ML IV (05:04)
[2021-04-04 06:42] LABS: Absolute Lymphocyte Count 0.61 X10^3/uL (0.83-4.51); Absolute Neutrophil Count 2.3 X10^3/uL (2.0-7.7); Basophil# 0.01 X10^3/uL; Basophil% 0.3 % (0-1); Eosinophil# 0.11 X10^3/uL; Eosinophils% 3.4 % (0-5); Hematocrit 30.4 % (40-54); Hemoglobin 9.8 g/dL (13.0-16.5); Lymphocyte # 0.61 X10^3/ul (0.83-4.51); Lymphocyte % 18.7 % (19-41); Mean Corp Hgb Conc 32.2 g/dL (32-36); Mean Corpuscular Hgb 27.9 pg (27.0-32.0); Mean Corpuscular Volume 86.6 fL (80-94); Mean Platelet Vol. 8.5 fl (6.2-12.0); Monocyte# 0.22 X10^3/uL; Monocyte% 6.7 % (0-10); NRBC Flagged by Analyzer 0 % (0-5); Neutrophil % 70.3 % (47-70); Platelet Count 241 K/mm3 (150-450); RBC Distribution Width CV 13.1 % (11.6-14.6); RBC Distribution Width SD 40.1 fl (35.1-43.9); Red Blood Count 3.51 M/mm3 (4.6-6.2); White Blood Count 3.3 K/mm3 (4.4-11.0)
[2021-04-04 07:11] LABS: Anion Gap 5 (5-15); BUN 5 mg/dL (7-18); BUN/Creat Ratio 8.3 RATIO (10-20); Calcium,Total 8.8 mg/dL (8.5-10.1); Chloride 103 mmol/L (98-107); EST Glomerular Filtration Rate 144 mL/min (>60); Est Glom Filt Rate - Afr Amer 174 mL/min (>60); Glucose 105 mg/dL (74-106); Potassium 3.6 mmol/L (3.5-5.1); Sodium Level 136 mmol/L (136-145)
[2021-04-04 09:00] VITALS: BP 130/66; PULSE 62; RESP 16; TEMP 37; O2SAT 98
[2021-04-04] MEDS: Enoxaparin 40 MG/0.4 ML Syringe SC (10:04)
[2021-04-04] MEDS: Polyethylene Glycol 3350 17 GM PACKET PO (10:04)
[2021-04-04] MEDS: Docusate Sodium 100 MG Capsule PO (10:04)
[2021-04-04] MEDS: Pantoprazole Sodium 20 MG Tablet PO (10:04)
--- NOTE | 2021-04-04 13:08 | DCINST_ITS ---
Discharge Instructions Diet Discharge Diet: No restrictions Activity Discharge Activity: Return to Normal Activity Follow Up Care Test Results: Test results from this visit will be discussed in further detail at your follow-up appointment, if applicable. Discharge Plan Admission Admit Date/Time: 04/02/21 22:13 Primary Reason for Your Visit: abdominal pain, constipation Attending Provider: Hong Infante Primary Care Provider: Jose Roberto Bueno NP Consulting Providers: Manulea Baker ; Jeremy Adkins ; Gloria Uribe ; Phyllis Mack ; Stacie Coffey ; Toshia Quintana MANAGER OF EMPLOYEE RELATIONS Instructions Additional Instructions / Restrictions: Follow-up with your oncologist as directed Discharge Orders/Prescriptions Prescriptions: No Action ondansetron 8 mg tablet,disintegrating 8 mg PO Q8H PRN PRN (Reason: Nausea) 10 Days Qty: 30 RF: 3 prochlorperazine maleate 10 mg tablet 10 mg PO Q6H PRN PRN (Reason: Nausea) 10 Days Qty: 30 RF: 2 docusate sodium [Colace] 100 mg capsule 100 mg PO DAILY RF: 0 omeprazole 20 MG capsule 20 mg PO DAILY RF: 0 food supplemt, lactose-reduced 120 ML liquid 120 ml PO 4X/DAY PRN (Reason: Not Specified) RF: 0 Lonsurf 20-8.19 mg Tablet 3 tab PO BID RF: 0 Referrals / Follow Up: Jose Roberto Bueno MANAGER OF EMPLOYEE RELATIONS, MANAGER OF EMPLOYEE RELATIONS-C [Primary Care Provider] - See Referral Note (as needed) Disposition Disposition (needs filled in before D/C Order can be placed): Home, Self Care
--- NOTE | 2021-04-04 14:18 | CON.PCM.PA_ITS ---
Assessment & Plan Assessment/Plan (1) Constipation: QUALIFIERS: Constipation type: unspecified constipation type Qualified Code(s): K59.00 - Constipation, unspecified (2) CINV (chemotherapy-induced nausea and vomiting): (3) Abdominal pain: QUALIFIERS: Abdominal location: left lower quadrant Qualified Code(s): R10.32 - Left lower quadrant pain (4) Weight loss: (5) Malignant neoplasm of colon metastatic to lung: (6) Diarrhea: QUALIFIERS: Diarrhea type: unspecified type Qualified Code(s): R19.7 - Diarrhea, unspecified (7) Iron deficiency: (8) Adenocarcinoma of colon: PLAN: 65-year-old male with adenocarcinoma of the colon, metastasis to gregg ateral lungs, liver, and adrenal. Seen today for palliative consultation secondary to symptom management of constipation, nausea and vomiting, and general supportive care. 1. Constipation: Improved. Currently on MiraLAX 17 g BID and Colace 100 mg daily. He is still having hard stools but they are moving better. Discussed different options with medications, verbalized understanding. If he is interested in palliative services, we can assist in adjusting meds as an outpatient. 2. Chemotherapy-induced nausea and vomiting: Currently no nausea and vomiting, he is in the midst of chemotherapy treatments. He is questioning whether his antiemetics are causing the constipation. Again, discussed medications. 3. Colon cancer with metastases to lung, adrenal, liver: Follows with Dr. Pastor, on [facility]. Patient would benefit from supportive services as outpatient thru palliative care, will collaborate with oncology if symptoms progress. 4. ANN/weight loss: Complicates overall care and management. Weight loss is likely due to his cancer and treatments. Hemoglobin is currently stable. He takes supplements at home and appetite is fairly good at this point. Thank you for the opportunity to participate in this patient's care, please do not hesitate to contact [facility] with any further questions or concerns. Palliative direct line is [phone]. Patient is being discharged today home, we will have a liaison follow-up with him as an outpatient. Greater than 50% of F2F visit dedicated to education and counseling of palliative care services, medications, comorbid conditions and potential assistance with management, and plan of care moving forward. Start time: 1400 End time: 1438 HPI Consult Data Date of Consult: 04/04/21 HPI Narrative HPI Narrative: AMADA SMITH, is a 65 M who presented to [facility] ostal 04/02/2021 with complaints of severe abdominal pain, patient has a history of metastatic lung cancer and had a colostomy placed approximately 1 year ago. He was having decreased output from his stoma and was concerned he had a bowel obstruction. He did try taking extra Colace with no success. He did have some very hard balls of stool come out of the ostomy, otherwise no output. He did no t have any other symptoms such as fever and chills, nausea, vomiting, or diarrhea. CT abdomen/pelvis in ED showed malignant mass in the mid aspect of descending colon that has enlarged and infiltrates the wall with metastatic masses in bilateral lungs. Also metastatic mass in the left adrenal and moderate to severe left hydronephrosis (chronic). It was recommended by physician in the ER that patient have a palliative/hospice consult to help with symptomatology. Patient did report he is in the midst of chemotherapy and is not ready to defer treatment. He was agreeable to palliative consult and was interested in hearing about services available. Patient was seen by general surgery, no surgical intervention was required. He was given IV fluids and antiemetics. He is on MiraLAX 17 g twice daily and Colace 100 mg daily. He does take Compazine at home for nausea. Patient follows with Dr. Pastor for oncology. He is on Lonsurf. He is a DNR CCA. Follows with Dr. Adams for symptom management of nausea, is prescribed medical marijuana. [facility] Medical History Adenocarcinoma of colon Chemotherapy induced neutropenia Chemotherapy management, encounter for CINV (chemotherapy-induced nausea and vomiting) Dermatitis Diarrhea Encounter for education Former smoker Iron deficiency Malignant neoplasm of colon metastatic to lung Oral candidiasis Pruritus Rectal discharge Stomal prolapse Weight loss Home Medications omeprazole 20 mg PO DAILY 03/02/20 [History Last Taken Unknown] food supplemt, lactose-reduced 120 ml PO 4X/DAY PRN 04/09/20 [History Last Taken Unknown] ondansetron 8 mg disintegrating tablet 8 mg PO Q8H PRN PRN 10 Days #30 tab.rapdis 01/20/21 [Rx Last Taken Unknown] prochlorperazine maleate 10 mg tablet 10 mg PO Q6H PRN PRN 10 Days #30 tablet 01/20/21 [Rx Last Taken Unknown] docusate sodium 100 mg capsule 100 mg PO DAILY 04/01/21 [History Last Taken Unknown] Lonsurf 3 tab PO BID 04/02/21 [History Last Taken 03/28/21] Allergy/AdvReac Type Severity Reaction Status Date / Time adhesive tape AdvReac Severe Rash Verified 04/02/21 15:03 Family History Sister No problems noted. Other No pertinent family history Surgical History history left partial nephrectomy History of basal cell carcinoma (BCC) excision Hx of transurethral resection of prostate Hypokalemia due to excessive gastrointestinal loss of potassium Social History Smoking Status: Former smoker Tobacco: How many years used: 40 second hand exposure: No alcohol intake: never substance use type: does not use wesly/gnosticism: None seatbelt use: always do you feel safe at home: Yes ROS ROS Narrative Review of systems otherwise negative from a constitutional, HEENT, respiratory, cardiovascular, GI, genitourinary, musculoskeletal, skin, neurologic, psychiatric and hematologic system unless stated above. Physical Exam Const oriented x3 and no apparent distress Constitutional Narrative: Drowsy but able to converse General Appearance: cooperative and comfortable Exam Limitations: no limitations Nutritional Appearance: cachectic HEENT normocephalic and head/scalp atraumatic Neck supple General: trachea midline Chest Chest Narrative: Port right chest Resp normal respiratory effort Effort and Inspection: able to speak in complete sentences Auscultation: clear to auscultation bilaterally and diminished lung sounds; Negative for rales, rhonchi or wheezes Cardio regular rate, regular rhythm, S1 normal heart sound and S2 normal heart sound GI soft to palpation and non-tender GI Narrative: Colostomy left side of abdomen. Mild distention Auscultation: normoactive bowel sounds Skin no rashes or lesions noted Neuro CN's II-XII intact bilaterally, moves all extremities and no focal motor deficits Speech: speech normal Psych mental status grossly normal and thought process normal Attitude: calm Activity / Motor Behavior: appropriate eye contact Memory / Cognition: memory grossly intact
[2021-04-04] MEDS: 0.9% Saline Lock 10 ML Syringe IV (15:21)
[2021-04-04 15:49] VITALS: BP 130/77; PULSE 68; RESP 16; TEMP 36.9; O2SAT 98
--- NOTE | 2021-04-04 18:02 | DS.PCM_ITS ---
Providers Date of Admission: 04/02/21 Date of Discharge: 04/04/21 Primary Care Physician: Jose Roberto Bueno, KELLEY-C Consultations 04/04/21 14:07 Consult: Hospice / Palliative Care Routine Consulting Provider: [facility] Reason for Consult: symptom control EMERGENT Consult: No MD Notified: Yes Date Notified: 04/04/21 Time Notified: 14:07 Method of Notification: Verbal Reason For Visit: ABD PAIN/CONSTIPATION Diagnosis Discharge Diagnosis (1) Constipation: Status: Resolved Code(s): K59.00 - Constipation, unspecified Qualifiers: Constipation type: unspecified constipation type Qualified Code(s): K59.00 - Constipation, unspecified (2) CINV (chemotherapy-induced nausea and vomiting): Status: Acute Code(s): R11.2 - Nausea with vomiting, unspecified; T45.1X5A - Adverse effect of ant ineoplastic and immunosuppressive drugs, initial encounter (3) Abdominal pain: Status: Resolved Code(s): R10.9 - Unspecified abdominal pain Qualifiers: Abdominal location: left lower quadrant Qualified Code(s): R10.32 - Left lower quadrant pain (4) Weight loss: Status: Acute Code(s): C18.9 - Malignant neoplasm of colon, unspecified (5) Malignant neoplasm of colon metastatic to lung: Status: Acute Code(s): C18.9 - Malignant neoplasm of colon, unspecified; C78.00 - Secondary malignant neoplasm of unspecified lung (6) Diarrhea: Status: Acute Code(s): K63.89 - Other specified diseases of intestine Qualifiers: Diarrhea type: unspecified type Qualified Code(s): R19.7 - Diarrhea, unspecified (7) Iron deficiency: Status: Acute Code(s): E61.1 - Iron deficiency (8) Adenocarcinoma of colon: Status: Acute Code(s): C18.9 - Malignant neoplasm of colon, unspecified; N13.8 - Other obstructive and reflux uropathy Plan: 1. Abdominal pain secondary to constipation #2 metastatic colon cancer-present on admission #3 GERD #4 severe caloric and protein malnutrition #5 anemia of chronic disease (cancer) Medications at Discharge Home Medications omeprazole 20 mg PO DAILY 03/02/20 food supplemt, lactose-reduced 120 ml PO 4X/DAY PRN 04/09/20 ondansetron 8 mg disintegrating tablet 8 mg PO Q8H PRN PRN 10 Days #30 tab.rapdis 01/20/21 prochlorperazine maleate 10 mg tablet 10 mg PO Q6H PRN PRN 10 Days #30 tablet 01/20/21 docusate sodium 100 mg capsule 100 mg PO DAILY 04/01/21 Lonsurf 3 tab PO BID 04/02/21 Hospital Course Operations None Procedures None Summary of Care Provided Minutes Spent on Discharge: 33 Hospital Course: This 65-year-old white male was seen in the emergency room at [facility] with complaints of abdominal pain and low output in his ostomy. Patient has a history of colon carcinoma which is metastatic and is currently getting chemotherapy in [place]. Patient was given IV pain medication for his abdominal discomfort CT scan of the abdomen pelvis did not show any acute small bowel obstruction, it showed an enlarging mass of the desce nding colon proximal to his diverting colostomy. Patient did not feel comfortable going home and did not get adequate pain control for his abdominal pain in the ER and he was placed into observation status on [facility], permission was obtained from the patient to have hospice/palliative care see the patient in consultation. Over the course of the patient's hospitalization, he started to have output in his ostomy bag and his abdominal pain resolved. On 04/04/2021, patient was seen and examined: On examination he older than his stated age, he appeared cachectic. Vital signs as documented. Skin warm and dry and without overt rashes. Neck without JVD, neck was supple, trachea midline, thyroid was normal. Lungs clear bilaterally, normal air movement was noted. Heart exam notable for regular rhythm, normal sounds and absence of murmurs, rubs or gallops. Abdomen-colostomy present . Bowel sounds are present, abdomen is not distended. Extremities nonedematous, no cyanosis was noted, no clubbing was noted. Neuro: Cranial nerves II through XII are grossly intact, no focal motor deficits were noted, sensation to light touch and pinprick intact, motor exam 5/5 throughout. Psych: Patient is alert and oriented x3, he does not appear anxious or depressed, he does not appear agitated. Patient appears stable for discharge on 04/04/2021. Weight / BMI Weight Weight: 59.285 kg Body Mass Index (BMI) 17.2 ABG / Lab / Microbiology Data Result Diagrams: 04/04/21 06:20 04/04/21 06:20 Laboratory: Laboratory Results - last 24 hr 04/04/21 06:20: WBC 3.3 L, RBC 3.51 L, Hgb 9.8 L, Hct 30.4 L, MCV 86.6, MCH 2 7.9, MCHC 32.2, RDW Std Deviation 40.1, RDW Coeff of Cherry 13.1, Plt Count 241, MPV 8.5, Immature Gran % (Auto) 0.600, Neut % (Auto) 70.3 H, Lymph % (Auto) 18.7 L, [place] % (Auto) 6.7, Eos % (Auto) 3.4, Baso % (Auto) 0.3, Absolute Neuts (auto) 2.3, Absolute Lymphs (auto) 0.61 L, Nucleated RBC % 0 04/04/21 06:20: Sodium 136, Potassium 3.6, Chloride 103, Carbon Dioxide 28.0, Anion Gap 5, BUN 5 L, Creatinine 0.60 L, Estim Creat Clear Calc 104.30, Est GFR (MDRD) Af Amer 174, Est GFR (MDRD) Non-Af 144, BUN/Creatinine Ratio 8.3 L, Glucose 105, Calcium 8.8 D/C Instructions Discharge Diet: No restrictions Meaningful Use Info Meaningful Use Diagnoses (Choose all that apply): None applicable Discharge Plan Admission Admit Date/Time: 04/02/21 22:13 Primary Reason for Your Visit: abdominal pain, constipation Attending Provider: Hong Infante Primary Care Provider: Jose Roberto Bueno SENIOR BUSINESS DEVELOPMENT MANAGER Consulting Providers: Manuela Baker ; Jeremy Adkins ; Gloria Uribe ; Phyllis Mack ; Stacie Coffey ; Toshia Quintana SENIOR BUSINESS DEVELOPMENT MANAGER Instructions Additional Instructions / Restrictions: Follow-up with your oncologist as directed Follow up with Pallative care as directed Discharge Orders/Prescriptions Prescriptions: Continued ondansetron 8 mg tablet,disintegrating 8 mg PO Q8H PRN PRN (Reason: Nausea) 10 Days Qty: 30 RF: 3 prochlorperazine maleate 10 mg tablet 10 mg PO Q6H PRN PRN (Reason: Nausea) 10 Days Qty: 30 RF: 2 docusate sodium [Colace] 100 mg capsule 100 mg PO DAILY RF: 0 omeprazole 20 MG capsule 20 mg PO DAILY RF: 0 food supplemt, lactose-reduced 120 ML liquid 120 ml PO 4X/DAY PRN (Reason: Not Specified) RF: 0 Lonsurf 20-8.19 mg Tablet 3 tab PO BID RF: 0 Referrals / Follow Up: Jose Roberto Bueno SENIOR BUSINESS DEVELOPMENT MANAGER, SENIOR BUSINESS DEVELOPMENT MANAGER-C [Primary Care Provider] - See Referral Note (as needed) Disposition Disposition (needs filled in before D/C Order can be placed): Home, Self Care Charges/Coding Visit Charges OBSV E&M: 01574 Observation care discharge
== END 2021-04-04 15:59 | disposition home or self-care (01) ==
LOC: ED 16:32 → MS3 22:40
PROVIDERS: Internal Medicine; Admitting Provider Family Medicine; Emergency Provider Emergency Medicine; PCP Nurse Practitioner Family; Visit Provider Internal Medicine
DX: K59.00 Constipation, unspecified (principal); C18.9 Malignant neoplasm of colon, unspecified; C78.7 Secondary malignant neoplasm of liver and intrahepatic bile duct; C78.00 Secondary malignant neoplasm of unspecified lung; B37.0 Candidal stomatitis; T45.1X5A Adverse effect of antineoplastic and immunosuppressive drugs, initial encounter; R11.2 Nausea with vomiting, unspecified; K21.9 Gastro-esophageal reflux disease without esophagitis; E43 Unspecified severe protein-calorie malnutrition; D64.9 Anemia, unspecified; Z79.899 Other long term (current) drug therapy; Z87.891 Personal history of nicotine dependence; Z93.3 Colostomy status; Z90.5 Acquired absence of kidney; Z68.1 Body mass index [BMI] 19.9 or less, adult
CPT/HCPCS: 36415; 36591; 74177; 80048; 80053; 81001; 83605; 83690; 85025; 96361; 96372; 96374; 96375; 96376; 97802; 99218; 99283; Q9967; A4216; G0378; J2405

== ENCOUNTER 2021-04-07 15:25 | Outpatient (RCR) | payer OTHER, SELFPAY | END 2021-04-24 23:59 | LOC: NS 15:25 | PROVIDERS: PCP Nurse Practitioner Family; Visit Provider Internal Medicine Hematology & Oncology | DX: Z00.00 Encounter for general adult medical examination without abnormal findings (principal) ==